=== PATIENT | male | born 1960 | race Caucasian/White ===

== ENCOUNTER → 2023-10-10 08:44 | Outpatient (BNVA) | payer OTHER, SELFPAY | PROVIDERS: Family Provider Family Medicine; PCP Family Medicine; Visit Provider Family Medicine | DX: G45.9 Transient cerebral ischemic attack, unspecified (principal); M10.9 Gout, unspecified; E11.9 Type 2 diabetes mellitus without complications; I10 Essential (primary) hypertension | CPT/HCPCS: 80053; 80061; 82607; 83036; 84443; 84550; 85025; 86140 ==

== ENCOUNTER 2023-10-25 13:01 | Outpatient (CLI) | payer OTHER, SELFPAY ==
--- NOTE | 2023-10-25 13:15 | USCV_ITS ---
Jared Dani Age: 62 Gender: M : 1960 Exam Date: 10/25/2023 13:58 Ordering Phys: Timoteo Farrar MD Technologist: DARLEEN [place] [facility] [place]: TIA BP: 137 / 82 HR: 82 Rhythm: Sinus Technical Quality: Adequate MEASUREMENTS (Male / Female) Normal Values 2D ECHO LVOT Diameter 2.0 cm LV Ejection Fraction MOD 2C 57.7 % LV Ejection Fraction 2C AL 57.2 % LA Diameter 2.9 cm LA Width 2.9 cm LA Height 5.8 cm RA Width 2.8 cm RA Height 4.6 cm Aorta at Sinotubular Diameter 2.6 cm M-MODE Aortic Annulus Diameter 3.0 cm LA Ao Ratio MM 1.0 MV E Point Septal Separation 0.4 cm DOPPLER AV Peak Velocity 163.0 cm/s LVOT Peak Velocity 129.0 cm/s AV Area Cont Eq vti 2.7 cm squared AV Area Cont Eq pk 2.5 cm squared MV Peak Velocity 84.0 cm/s MV Area PHT 2.8 cm squared Mitral E to A Ratio 1.0 MV E' Velocity 44.5 cm/s Mitral E to MV E' Ratio 9.3 Mitral E to LV E' Lateral Ratio 7.8 Mitral E to LV E' Septal Ratio 11.5 TR Peak Velocity 162.2 cm/s TR Peak Gradient 10.5 mmHg TR Mean Velocity 128.7 cm/s TR Mean Gradient 6.9 mmHg TR Velocity Time Integral 42.4 cm TV Peak E Velocity 52.0 cm/s Right Atrial Pressure 8.0 mmHg Pulmonary Artery Systolic Pressu 18.5 mmHg PV Peak Velocity 132.0 cm/s RV Acceleration Time 0.1 s RV Ejection Time 0.3 s RV AcT/ET 0.3 FINDINGS Left Ventricle Left ventricle is normal size. LV systolic function is normal with EF of 55 to 60%. No regional wall motion abnormalities are seen. Right Ventricle Normal in size and function Right Atrium Normal in size Left Atrium Normal in size Mitral Valve Structurally normal mitral valve. Mild mitral regurgitation Aortic Valve Structurally normal aortic valve. No significant stenosis or regurgitation seen. Tricuspid Valve Mild tricuspid regurgitation. Insufficient TR jet to calculate RVSP. Pulmonic Valve Not well-visualized. Pericardium Normal Aorta Normal in size IVC Appears to be normal CONCLUSIONS LV systolic function is normal with EF of 55 to 60%. Mild mitral regurgitation Mild tricuspid regurgitation No comparison studies are available Oscar Santana MD (Electronically Signed) Final Date: 10 November 2023 15:18 S
== END 2023-10-25 13:02 | disposition home or self-care (01) ==
LOC: RAD 13:02
PROVIDERS: Family Provider Family Medicine; PCP Family Medicine; Visit Provider Family Medicine
DX: I08.1 Rheumatic disorders of both mitral and tricuspid valves (principal); G45.9 Transient cerebral ischemic attack, unspecified; R07.9 Chest pain, unspecified; M10.9 Gout, unspecified; E11.9 Type 2 diabetes mellitus without complications; I10 Essential (primary) hypertension
CPT/HCPCS: 93306

== ENCOUNTER 2023-10-25 14:19 | Outpatient (CLI) | payer OTHER, SELFPAY ==
--- NOTE | 2023-10-25 14:30 | USCV_ITS ---
Dani Coleman Age: 62 Gender: M : 1960 Exam Date: 10/25/2023 14:26 Ordering Phys: Timoteo Farrar MD Technologist: DARLEEN [place] [facility] [place]: TIA Risk Factors: Previous Vascular Surgery: Right Brachial BP: / Left Brachial BP: / Right Left Velocity (cm/s) Spectral Plaque Velocity (cm/s) Spectral Plaque Syst/Diast Broadening Syst/Diast Broadening 71.00/ 13.10 Prox CCA 91.70 / 16.60 74.30/ 16.40 Mid CCA 87.20 / 14.50 68.40/ 18.40 Distal CCA 80.30 / 19.70 56.50/ 13.80 Prox ICA 63.20 / 12.00 50.80/ 19.70 Mid ICA 60.30 / 19.40 68.40/ 21.70 Distal ICA 61.50 / 19.70 92.40 ECA 88.00 0.92 ICA/CCA 0.69 Antegrade Vertebral Antegrade 32.00/ 9.10 cm/s 28.90/ 5.90 cm/s Tri Subclavian Tri 75.20 155.1 0 FINDINGS Comparison: none available. No significant elevation of systolic or diastolic velocities. Waveforms are normal. Mild atherosclerosis at the bifurcations. Antegrade vertebral arteries. CONCLUSIONS Bilateral ICA stenosis less than 50%. Mild carotid atherosclerosis. Dr. Stephani Leone DO (Electronically Signed) Final Date: 25 October 2023 15:33 S
== END 2023-10-25 14:20 | disposition home or self-care (01) ==
LOC: RAD 14:19
PROVIDERS: Family Provider Family Medicine; PCP Family Medicine; Visit Provider Family Medicine
DX: G45.9 Transient cerebral ischemic attack, unspecified (principal); I65.23 Occlusion and stenosis of bilateral carotid arteries; M10.9 Gout, unspecified; E11.9 Type 2 diabetes mellitus without complications; I10 Essential (primary) hypertension
CPT/HCPCS: 93880

== ENCOUNTER 2023-10-27 16:50 | Outpatient (CLI) | payer OTHER, SELFPAY ==
--- NOTE | 2023-10-27 17:00 | CTR_ITS ---
PROCEDURE INFORMATION: Exam: CT Head Without And With Contrast Exam date and time: 10/27/2023 5:02 PM Age: 62 years old Clinical indication: Altered mental status/memory loss; Confusion or disorientation; Additional info: TIA TECHNIQUE: Imaging protocol: Computed tomography of the head without and with contrast. Radiation optimization: All CT scans at this facility use at least one of these dose optimization techniques: automated exposure control; mA and/or kV adjustment per patient size (includes targeted exams where dose is matched to clinical indication); or iterative reconstruction. Contrast material: OMNI 350; Contrast volume: 100 ml; Contrast route: INTRAVENOUS (IV); COMPARISON: MR head orbits wo/w* [id number] 12/26/2016 8:20 AM RADIATION DOSE METRICS: Total DLP (mGy-cm): 2197.58 FINDINGS: Brain: No evidence of intra-axial or extra-axial hemorrhage. No evidence of abnormal enhancement. The vessels of the augqil-eq-Ozizcj are grossly patent. Dural venous sinuses are patent. No mass effect or midline shift. Frias-white differentiation is maintained. Basilar cisterns are patent. Cerebral ventricles: No hydrocephalus. Paranasal sinuses: Paranasal sinuses are well aerated. There is a 13 mm polypoid mass in the left sphenoid sinus along the anterior wall compatible with a sphenochoanal polyp. Mastoid air cells: The mastoids and middle ears are clear. Bones/joints: No evidence of acute fracture. Calvarium is intact. Soft tissues: No gross soft tissue abnormality. CT/CT head wo/w con [id number] IMPRESSION: 1. No acute intracranial abnormality. 2. 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 Follow-up outpatient ENT evaluation is recommended.
[2023-10-27] MEDS: iohexol 350 mg/mL 500 mL Btl (per mL) IV (17:15)
== END 2023-10-27 16:51 | disposition home or self-care (01) ==
LOC: RAD 16:50
PROVIDERS: Family Provider Family Medicine; PCP Family Medicine; Visit Provider Family Medicine
DX: G45.9 Transient cerebral ischemic attack, unspecified (principal); M10.9 Gout, unspecified; E11.9 Type 2 diabetes mellitus without complications; I10 Essential (primary) hypertension; R41.3 Other amnesia; J33.8 Other polyp of sinus
CPT/HCPCS: 70470; Q9967

== ENCOUNTER → 2024-02-13 16:04 | Outpatient (BNVA) | payer OTHER, SELFPAY | PROVIDERS: Family Provider Family Medicine; PCP Family Medicine; Visit Provider Family Medicine | DX: I10 Essential (primary) hypertension (principal); E11.9 Type 2 diabetes mellitus without complications; M10.9 Gout, unspecified; G45.9 Transient cerebral ischemic attack, unspecified | CPT/HCPCS: 80053; 80061; 83036; 85025; 85260 ==

== ENCOUNTER → 2024-05-17 08:23 | Outpatient (BNVA) | payer OTHER, SELFPAY | PROVIDERS: Family Provider Family Medicine; PCP Family Medicine; Visit Provider Family Medicine | DX: E78.5 Hyperlipidemia, unspecified (principal); I10 Essential (primary) hypertension; E11.9 Type 2 diabetes mellitus without complications | CPT/HCPCS: 80053; 80061; 83036 ==

== ENCOUNTER → 2024-05-20 13:14 | Outpatient (BNVA) | payer OTHER, SELFPAY | PROVIDERS: Family Provider Family Medicine; PCP Family Medicine; Visit Provider Family Medicine | DX: E11.9 Type 2 diabetes mellitus without complications (principal) | CPT/HCPCS: 82962 ==

== ENCOUNTER → 2024-08-26 13:57 | Outpatient (BNVA) | payer OTHER, SELFPAY | PROVIDERS: Family Provider Family Medicine; PCP Family Medicine; Visit Provider Family Medicine | DX: I10 Essential (primary) hypertension (principal); E78.5 Hyperlipidemia, unspecified; E11.9 Type 2 diabetes mellitus without complications | CPT/HCPCS: 80053; 80061; 83036 ==

== ENCOUNTER → 2024-11-26 10:19 | Outpatient (BNVA) | payer OTHER, SELFPAY | PROVIDERS: Family Provider Family Medicine; PCP Family Medicine; Visit Provider Family Medicine | DX: I10 Essential (primary) hypertension (principal); R73.03 Prediabetes | CPT/HCPCS: 80053; 80061; 83036 ==

== ENCOUNTER → 2024-12-06 08:28 | Outpatient (BNVA) | payer OTHER, SELFPAY | PROVIDERS: Family Provider Family Medicine; PCP Family Medicine; Visit Provider Family Medicine | DX: I10 Essential (primary) hypertension (principal) | CPT/HCPCS: 84550 ==

== ENCOUNTER → 2025-03-06 11:13 | Outpatient (BNVA) | payer OTHER, SELFPAY | PROVIDERS: Family Provider Family Medicine; PCP Family Medicine; Visit Provider Family Medicine | DX: N18.9 Chronic kidney disease, unspecified (principal); I10 Essential (primary) hypertension; R73.03 Prediabetes; E11.9 Type 2 diabetes mellitus without complications; M10.9 Gout, unspecified | CPT/HCPCS: 80053; 80061; 83036; 84550; 85025 ==

== ENCOUNTER → 2025-06-06 11:09 | Outpatient (BNVA) | payer OTHER, SELFPAY | PROVIDERS: Family Provider Family Medicine; PCP Family Medicine; Visit Provider Family Medicine | DX: E11.9 Type 2 diabetes mellitus without complications (principal); I10 Essential (primary) hypertension; M10.9 Gout, unspecified; E78.5 Hyperlipidemia, unspecified | CPT/HCPCS: 80053; 80061; 83036 ==

== ENCOUNTER 2025-06-15 19:10 | Inpatient (IN) | payer OTHER, SELFPAY ==
[2025-06-15] VITALS (7 sets, daily range): BP systolic 132–173; BP diastolic 87–108; PULSE 80–98; RESP 17–29; TEMP 36.6–36.7; O2SAT 93–95; BMI 32.0
--- NOTE | 2025-06-15 19:14 | ECG_ITS ---
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
--- NOTE | 2025-06-15 19:29 | CTR_ITS ---
PROCEDURE INFORMATION: Exam: CT Head Without Contrast Exam date and time: 06/15/2025 7:52 PM Age: 64 years old Clinical indication: Stroke-like symptoms; RT upper extremity weakness; Additional info: Sudden onset of right upper ext weakness and numbness. History of multiple TIA. TECHNIQUE: Imaging protocol: Computed tomography of the head without contrast. Radiation optimization: All CT scans at this facility use at least one of these dose optimization techniques: automated exposure control; mA and/or kV adjustment per patient size (includes targeted exams where dose is matched to clinical indication); or iterative reconstruction. Other technique: STROKE PROTOCOL was implemented. COMPARISON: CT head wo/w con [id number] 10/27/2023 5:02 PM RADIATION DOSE METRICS: Total DLP (mGy-cm): 1108.94 FINDINGS: Brain: No evidence of intra-axial or extra-axial hemorrhage. No mass effect or midline shift. Frias-white differentiation is maintained. Basilar cisterns are patent. Cerebral ventricles: No hydrocephalus. Paranasal sinuses: The visualized paranasal sinuses are well aerated. 12 mm nodular lesion in the left sphenoid sinus, possibly a proteinaceous cyst. Mastoid air cells: The visualized mastoids and middle ears are clear. Bones: Calvarium is intact. No evidence of acute fracture. Soft tissues: No gross soft tissue abnormality. CT/CT head thrombolytic [id number] IMPRESSION: 1. No acute intracranial abnormality. ASSESSMENT: ASPECTS ([place] Stroke Program Early CT Score) is 10.
--- NOTE | 2025-06-15 19:29 | XRR_ITS ---
PROCEDURE INFORMATION: Exam: XR Chest Exam date and time: 06/15/2025 7:29 PM Age: 64 years old Clinical indication: Pain; Right-sided; Additional info: R arm paresthesia TECHNIQUE: Imaging protocol: Radiologic exam of the chest. Views: 1 view. COMPARISON: No relevant prior studies available. FINDINGS: Lungs: No focal consolidation. Pleural spaces: No evidence of pneumothorax. Left basilar atelectasis. Small left-sided pleural effusion would be difficult to exclude. Heart/Mediastinum: Cardiomediastinal silhouette is within normal limits. Bones/joints: No evidence of acute osseous abnormality. XR/XR chest 1V portable [id number] IMPRESSION: 1. Left basilar atelectasis. Small left-sided pleural effusion would be difficult to exclude. CT may be helpful for further detail if clinically warranted.
[2025-06-15 20:02] LABS: Hematocrit 44.7 % (37-53); Hemoglobin 15.20 g/dL (11.27-16.99); Mean Corpuscular HGB Conc 34.0 g/dL (30-55); Mean Corpuscular Hemoglobin 28.7 pg (27-33); Mean Corpuscular Volume 84.5 fl (82-101); Nucleated Red Blood Cells % 0 %; Platelet Count 275 10^3/cmm (157-399); Red Blood Count 5.29 10^6/uL (3.85-5.65); White Blood Count 8.74 10^3/uL (3.29-11.43)
--- NOTE | 2025-06-15 20:05 | ECG_ITS ---
[facility] Test Date: 2025-06-15 Pat Name: Dani Coleman Department: Room: Gender: Male Set Up Person: : 1960 Requested By: Devang David Order Number: [id number] Aron MD: YUSUF RUSSO Measurements Intervals [place] Rate: 93 P: 38 DE: 153 QRS: 18 QRSD: 85 T: -28 QT: 360 QTc: 449 Interpretive Statements SINUS RHYTHM NONSPECIFIC T-WAVE ABNORMALITY No previous ECG available for comparison Electronically Signed On 06-16-2025 10:48:41 CDT by YUSUF RUSSO [id number]
[2025-06-15 20:06] LABS: Alanine Aminotransferase 43 U/L (0-41); Albumin Level 4.1 g/dL (3.5-5.2); Alkaline Phosphatase 79 U/L (40-130); Anion Gap 19.6 (5-19); Aspartate Amino Transferase 29 U/L (0-40); Blood Urea Nitrogen 21 mg/dL (8-23); Calcium 9.5 mg/dL (8.5-10.5); Carbon Dioxide 23 mmol/L (22-29); Chloride 97 mmol/L (98-107); Creatinine Clr Calc Pharmacy 107.5861; Globulin 4.0 g/dL (1.3-4.6); Glucose 212 mg/dL (65-115); Osmolality Calculated 291 mOsm/kg (285-295); Potassium 3.6 mmol/L (3.5-5.1); Sodium 136 mmol/L (136-145); Total Protein 8.1 g/dL (6.6-8.7)
[2025-06-15 20:13] LABS: INR 0.98 (0.8-1.2); Prothrombin Time 13.70 SECONDS (12.1-14.9)
[2025-06-15 20:14] LABS: Partial Thromboplastin Time 27.5 SECONDS (23.9-36.7)
[2025-06-15 20:19] LABS: Troponin(5th) Baseline 1159 ng/L (0-15)
--- NOTE | 2025-06-15 20:37 | ED_ITS ---
HPI - Neuro Symptoms/Deficit 2 General: Chief Complaint: Neuro Symptoms/Deficit Stated Complaint: RIGHT ARM NUMBNESS Time Seen by Provider: 06/15/25 19:13 History of Present Illness: Patient is a 64-year-old male who presents after experiencing sudden onset of numbness in his arm approximately 15 minutes prior to arrival. The numbness began in his hand and progressed up his arm. He also reports associated visual changes, describing that part of his vision was blurry and that he could not see portions of people's faces (specifically the right side). The patient additionally reports experiencing difficulty with word-finding during the episode. He self-administered sublingual nitroglycerin, which was recently prescribed to him on (3 days ago) following an evaluation for chest pain and tightness. The patient states that the numbness has improved but is still present. He denies weakness in the affected arm. Of note, the patient reports that on he had similar symptoms affecting his right side. He was evaluated by his primary care physician at that time and had an EKG which the physician reported as 'not normal' but not showing evidence of a myocardial infarction. A modified stress test has been scheduled for Monday. The patient also mentions feeling unusually warm despite cool weather recently. He has a history of elevated blood pressure and reports stopping his amlodipine approximately 1.5 weeks ago due to episodes of hypotension, though he continues to take lisinopril. Related Data Previous Rx's ?Medication ?Instructions ?Recorded aspirin 81 mg tablet,delayed 243 mg (3 x 81 mg) PO BID #30 tabs 10/10/23 release (Adult Aspirin Regimen) blood-glucose meter #1 ea 10/19/23 lisinopril 20 mg tablet 20 mg PO DAILY #90 tabs 06/09 11/01 hydrochlorothiazide 25 mg tablet See Rx Instructions . Route 10/14/24 .COMPLEX #90 tabs metformin 1,000 mg tablet See Rx Instructions .Route 0 10/14/24 .COMPLEX #60 tabs blood sugar diagnostic (OneTouch #200 strips 10/24/24 Ultra Test strips) permethrin 5 % topical cream 1 applic topical .Q7Days 2 doses 12/02/24 (Elimite) #60 grams allopurinol 100 mg tablet 100 mg PO DAILY #30 tabs fluticasone propionate 50 See Rx Instructions .Route 0 01/20/25 mcg/actuation nasal .COMPLEX #16 grams spray,suspension glimepiride 4 mg tablet See Rx Instructions .Route 0 01/20/25 .COMPLEX #60 tabs montelukast 10 mg tablet See Rx Instructions .Route 0 01/20/25 .COMPLEX #30 tabs pioglitazone 15 mg tablet (Actos) 15 mg PO DAILY #30 t abs 03/10/25 nitroglycerin 0.4 mg sublingual 0.4 mg sublingual Q5M PRN chest 06/12/25 tablet pain #20 tabs Allergies Allergy/AdvReac Type Severity Reaction Status Date / Time tetracycline AdvReac Intermediate GI Verified 01/25/24 13:28 PFSH ED 2 PFSH: Medical History Hyperlipidemia Hypertension Diabetes mellitus Gout Social History Smoking and tobacco/nicotine status: never used tobacco/nicotine NIH stroke score 2 NIHSS: Level Of Consciousness - 1a: 0 Level Of Consciousness Questions - 1b: Both Correct Level Of Consciousness Commands - 1c: Both Correct Best Gaze - 2: Normal Visual [place] - 3: No Visual Loss Facial Palsy - 4: N ormal Motor Arm Right - 5: No Drift Motor Arm Left - 5: No Drift Motor Leg Right - 6: No Drift Motor Leg Left - 6: No Drift Limb Ataxia - 7: A bsent Sensory - 8: Mild To Moderate Loss Best Language - 9: No Aphasia Dysarthia - 10: Normal Extinction And Inattention - 11: 0 Score: Total Score: 1 Physical Exam 2 Const: COMMON NORMALS: no acute distress GENERAL APPEARANCE: cooperative; not ill appearing and not frail appearing HENMT: COMMON NORMALS: normocephalic, atraumatic and Normal external nose present HEAD & SCALP: normocephalic and atraumatic FACE & SINUS: normal facial exam and face symmetric NOSE: Normal external nose present Eye: COMMON NORMALS: Equal, round and reactive pupils present and EOMs intact bilaterally PUPIL: Yes Equal, round and reactive pupils present Neck/C-Spine: GENERAL: Yes trachea midline Chest: CHEST: Yes Symmetrical chest wall rise Resp: COMMON NORMALS: normal respiratory effort, No retractions, No use of accessory muscles and clear to auscultation bilaterally AUSCULTATION: clear to auscultation bilaterally Cardio: COMMON NORMALS: regular rate and regular rhythm RATE: regular rate RHYTHM: regular rhythm GI: COMMON NORMALS: Normal to inspection, nondistended, normoactive bowel sounds present Extremity: COMMON NORMALS: no pedal edema Neuro: MINISTERIO COMA SCALE: document GCS findings Ministerio coma scale eye opening: Spontaneous [place] coma scale verbal response: Orientated [place] coma scale motor response: Obey commands [place] coma scale total score: 15 S ENSORY EXAM: Yes extremities (intact) Psych: COMMON NORMALS: speech normal SPEECH: Yes normal speech Skin: COMMON NORMALS: no rashes or lesions noted GENERAL SKIN EXAM: no rashes or lesions noted Course 2 Vital Signs: Vital signs: Vital Signs Temperature 97.9 F 06/15/25 23:25 Pulse Rate 83 06/16/25 00:00 Respiratory Rate 14 06/16/25 00:00 Blood Pressure 138/91 06/16/25 00:00 Pulse Oximetry 94 06/15/25 23:45 Oxygen Delivery Me thod Room Air 06/15/25 23:11 MDM - Neuro Symptoms/Deficit Medical Decision Making 64-year-old male patient with right arm paresthesias. He has had chest tightness this week. He does not have chest tightness currently. The paresthesia has improved significantly, even some since he was first seen by me on arrival. His other neurological symptoms are gone. His EKG initially showed ST wave changes in the inferior leads, with minimal, nondiagnostic elevation. He continues to not have any chest tightness or discomfort. However with EKG changes, troponin elevation, and previous chest tightness, cardiology was consulted after troponin came back. Decision was made to take the patient for angiogram diagnostically this evening given his high troponin and EKG changes. He is stable otherwise. His stroke scale was 1 for right upper extremity paresthesia. He does not meet stroke treatment criteria with this score. His chest x-ray shows a left basilar atelectasis. His head CT is nonacute. CBC and BMP are not remarkable. His sugar is 212. Cath team is underway. The patient is given 600 mg Plavix, 4000 units heparin, 324 mg of aspirin. Nitroglycerin drip is hung in the room but not started. Lab Data 06/16/25 01:30 06/16/25 01:30 Radiology Impressions Chest X-Ray 06/15/25 19:29 IMPRESSION: 1. Left basilar atelectasis. Small left-sided pleural effusion would be difficult to exclude. CT may be helpful for further detail if clinically warranted. Head CT 06/15/25 19:29 IMPRESSION: 1. No acute intracranial abnormality. ASSESSMENT: ASPECTS ([place] Stroke Program Early CT Score) is 10. ADDENDUM: 06/15/252027 The findings were verbally communicated by telephone with Dr. TRINIDAD at 8:27 PM CDT on 06/15/2025. Laboratory Results WBC 8.74 10^3/uL (3.29-11.43) 06/15/25 19:10 RBC 5.29 10^6/uL (3.85-5.65) 06/15/25 19:10 Hgb 15.20 g/dL (11.27-16.99) 06/15/25 19:10 Hct 44.7 % (37-53) 06/15/25 19:10 MCV 84.5 fl (82-101) 06/15/25 19:10 MCH 28.7 pg (27-33) 06/15/25 19:10 MCHC 34.0 g/dL (30-55) 06/15/25 19:10 RDW 14.2 % (12.1-15.1) 06/15/25 19:10 Plt Count 275 10^3/cmm (157-399) 06/15/25 19:10 MPV 10.7 fL (7.4-10.4) H 06/15/25 19:10 Neut % (Auto) 61.9 % 06/15/25 19:10 Lymph % (Auto) 25.1 % 06/15/25 19:10 Cannon % (Auto) 10.1 % 06/15/25 19:10 Eos % (Auto) 2.1 % 06/15/25 19:10 Baso % (Auto) 0.5 % 06/15/25 19:10 Neut # (Auto) 5.42 10^3/uL (1.8-7.7) 06/15/25 19:10 Lymph # (Auto) 2.2 10^3/uL (0.8-4.8) 06/15/25 19:10 Cannon # (Auto) 0.9 10^3/uL (0.2-0.9) 06/15/25 19:10 Eos # (Auto) 0.2 10^3/uL (0.0-0.8) 06/15/25 19:10 Baso # (Auto) 0.0 10^3/uL (0.0-0.1) 06/15/25 19:10 Nucleated RBC % (auto) 0 % 06/15/25 19:10 Nucleated RBCs # 0.0 /100WBC 06/15/25 19:10 PT 13.70 SECONDS (12.1-14.9) 06/15/25 19:10 INR 0.98 (0.8-1.2) 06/15/25 19:10 APTT 27.5 SECONDS (23.9-36.7) 06/15/25 19:10 Sodium 136 mmol/L (136-145) 06/15/25 19:10 Potassium 3.6 mmol/L (3.5-5.1) 06/15/25 19:10 Chloride 97 mmol/L (98-107) L 06/15/25 19:10 Carbon Dioxide 23 mmol/L (22-29) 06/15/25 19:10 Anion Gap 19.6 (5-19) H 06/15/25 19:10 BUN 21 mg/dL (8-23) 06/15/25 19:10 Creatinine 0.9 mg/dL (0.7-1.2) 06/15/25 19:10 GFR Calculation 85.5 mL/min (90-130) L 06/15/25 19:10 Glucose 212 mg/dL (65-115) H 06/15/25 19:10 Calculated Osmolality 291 mOsm/kg (285-295) 06/15/25 19:10 Calcium 9.5 mg/dL (8.5-10.5) 06/15/25 19:10 Total Bilirubin 0.3 mg/dL (0.15-1.2) 06/15/25 19:10 AST 29 U/L (0-40) 06/15/25 19:10 ALT 43 U/L (0-41) H 06/15/25 19:10 Alkaline Phosphatase 79 U/L (40-130) 06/15/25 19:10 Troponin T Baseline 1159 ng/L (0-15) H* 06/15/25 19:10 Troponin T 120 Minute 610.9 ng/L (0-15) H 06/15/25 22:38 Delta Troponin T -548.1 ABS# (0-10) L 06/15/25 22:38 Total Protein 8.1 g/dL (6.6-8.7) 06/15/25 19:10 Albumin 4.1 g/dL (3.5-5.2) 06/15/25 19:10 Globulin 4.0 g/dL (1.3-4.6) 06/15/25 19:10 All radiology interpretation(s) finalized by discharge Critical Care Time 2 Critical Care Time: Critical Care Time: Yes Total Critical Care Time: 35 Attestation: This case had a high probability of a clinically significant, sudden, or life threatening deterioration of this patient's condition which required my full and direct attention, intervention and personal management. Time is independent of any procedures performed. 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
[2025-06-15] MEDS: heparin 5,000 unit/mL INJ 1 mL 4000 UNIT IVP (20:58)
[2025-06-15] MEDS: ondansetron 2 mg/ML SDV 2 mL 4 MG IVP (20:58)
--- NOTE | 2025-06-15 21:16 | PM.HP ---
Providers/Chief Complaint Admitting Physician: Oscar Santana MD/ Cardiology Primary Care Provider: Timoteo Farrar MD Chief Complaint: RIGHT ARM NUMBNESS/ Neck/jaw pain History of Present Illness aDni Coleman is a 64 year old male with past medical history of hypertension, TIA, diabetes who presented to hospital with right arm tingling and numbness. This was associated with difficulty with word finding. Speech difficulty has resolved. Tingling is improved and only has minimal symptoms. ER evaluated patient and per their evaluation does not need tPA. CT head does not show any acute findings. He had recent episodes of chest discomfort. Says has minor chest tightness today as well. Also has been noticing neck pain since . Today's episode of neurological symptoms was associated with diaphoresis. EKG showing borderline ST elevation in inferior leads not meeting STEMI criteria. Initial troponin is over 1100. 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 high risk NSTEMI Medications/Allergies Home Medications ?Medication ?Instructions ?Recorded ?Confirmed ?Last Taken ?Type aspirin 81 mg tablet,delayed 243 mg (3 x 81 mg) PO BID #30 tabs 10/10/23 06/12/25 Unknown Rx release (Adult Aspirin Regimen) blood-glucose meter #1 ea 10/19/23 06/12/25 Unknown Rx lisinopril 20 mg tablet 20 mg PO DAILY #90 tabs 06/19/24 06/12/25 Unknown Rx hydrochlorothiazide 25 mg tablet See Rx Instructions .Route 10/14/24 06/12/25 Unknown Rx .COMPLEX #90 tabs metformin 1,000 mg tablet See Rx Instructions .Route 10/14/24 06/12/25 Unknown Rx .COMPLEX #60 tabs blood sugar diagnostic (OneTouch #200 strips 10/24/24 06/12/25 Unknown Rx Ultra Test strips) permethrin 5 % topical cream 1 applic topical .Q7Days 2 doses 12/02/24 06/12/25 Unknown Rx (Elimite) #60 grams allopurinol 100 mg tablet 100 mg PO DAILY #30 tabs 01/20/25 06/12/25 Unknown Rx fluticasone propionate 50 See Rx Instructions .Route 01/20/25 06/12/25 Unknown Rx mcg/actuation nasal .COMPLEX #16 grams spray,suspension glimepiride 4 mg tablet See Rx Instructions .Route 01/20/25 06/12/25 Unknown Rx .COMPLEX #60 tabs montelukast 10 mg tablet See Rx Instructions .Route 01/20/25 06/12/25 Unknown Rx .COMPLEX #30 tabs pioglitazone 15 mg tablet (Actos) 15 mg PO DAILY #30 tabs 03/10/25 06/12/25 Unknown Rx nitroglycerin 0.4 mg sublingual 0.4 mg sublingual Q5M PRN chest 06/12/25 06/12/25 Unknown Rx tablet pain #20 tabs Allergies Allergy/AdvReac Type Severity Reaction Status Date / Time tetracycline AdvReac Intermediate GI Verified 01/25/24 13:28 PFSH Acute PFSH: Medical History Hyperlipidemia Hypertension Diabetes mellitus Gout Social History Smoking and tobacco/nicotine status: never used tobacco/nicotine Vitals/I&O/Wt Last Vital Signs Temp 98.0 F 06/15/25 19:11 Pulse 93 06/15/25 20:05 Resp 21 H 06/15/25 20:05 BP 148/87 06/15/25 20:05 Pulse Ox 95 06/15/25 20:05 O2 Del Method Room Air 06/15/25 20:05 06/15/25 06/15/25 06/15/25 06:59 14:59 22:59 Intake Total 500 / 500 Balance 500 / 500 Weight last 48 hrs Weight 236 lb Physical Exam Narrative: GENERAL: Patient is alert, awake and oriented x3. [] NECK: No jugular vein distension. [] HEENT: No cyanosis. No icterus. No pallor. [] HEART: Regular S1 and S2. No murmur, rub or gallop. [] LUNGS: Clear to auscultate bilaterally. [] CENTRAL NERVOUS SYSTEM: Right arm tingling EXTREMITIES: Lower extremities with no edema bilaterally. Data 06/15/25 19:10 06/15/25 19:10 A&P Assessment and plan 1. Non-ST elevated myocardial infarction (non-STEMI): 2. Hyperlipidemia: 3. Hypertension: 4. Diabetes mellitus: 5. TIA (transient ischemic attack): 6. Arm paresthesia, right: Plan: Given patient's recent chest pain, ongoing the neck discomfort and very high troponins along with borderline ST elevations in inferior leads, we will proceed with coronary angiogram with possible PCI. I had a detailed discussion with the ER team regarding any need for TIA/ stroke. Head bleed ruled out with CT scan. Does not meet criteria for tPA. Patient was given aspirin, plavix and heparin in the ER. We will consult medicine team for management and further workup of neurological symptoMS PDMP PDMP Reviewed: Not Reviewed Attestations Medical Necessity Statement*: Care expected to cross 2 midnights. Patient presented with high risk NSTEMI and TIA. Coding Level of Care Code Acute Code for [facility] Fwd Diagnoses Non-ST elevated myocardial infarction (non-STEMI) I21.4 Hyperlipidemia E78.5 Hypertension I10 Diabetes mellitus E11.9 TIA (transient ischemic attack) G45.9 Arm paresthesia, right R20.2
--- NOTE | 2025-06-15 21:30 | ECG_ITS ---
[facility] Test Date: 2025-06-15 Pat Name: Dani Coleman Department: Room: ICU05 Gender: Male Tele Marketing Executive: : 1960 Requested By: Devang David Order Number: [id number] Aron MD: YUSUF RUSSO Measurements Intervals [place] Rate: 80 P: 45 AK: 151 QRS: 48 QRSD: 82 T: 85 QT: 367 QTc: 425 Interpretive Statements SINUS RHYTHM MARKED ST ELEVATION, CONSIDER INFERIOR INJURY [MARKED ST ELEVATION W/O NORMALLY INFLECTED T-WAVE IN II/aVF] MARKED ST ELEVATION, CONSIDER ANTEROLATERAL INJURY [MARKED ST ELEVATION W/O NORMALLY INFLECTED T-WAVE IN V3-V6] ACUTE [place] Compared to ECG 06/15/2025 20:05:24 ST (T wave) deviation now present Myocardial infarct finding now present T-wave abnormality no longer present Electronically Signed On 06-16-2025 10:54:13 CDT by YUSUF RUSSO [id number]
--- NOTE | 2025-06-15 23:07 | PM.PROC ---
Procedure Note: Date of procedure: 06/15/25 Pre-procedure diagnosis: NSTEMI Post-procedure diagnosis: other Procedure: Left main artery is patent. Left circumflex artery is a proximal severe stenosis with thrombus. Mid vessel has critical stenosis. Has severe diffuse disease. LAD has severe diffuse disease distally with total occlusion of apical LAD. RCA has significant 70% proximal stenosis. Has severe diffuse disease in the distal vessel. Status post PCI of proximal and mid circumflex artery with 2 stents. Continue aspirin and plavix for atleast 1 year High intensity statin therapy We will consult medicine team for management of medical issues Performing Provider: Oscar Santana Estimated blood loss (mL): 10 Complications: None Condition: stable Disposition: ICU Coding Level of Care Code Acute Code for [facility] Fwd
[2025-06-15 23:13] LABS: Troponin 5 2HR Delta -548.1 ABS# (0-10)
[2025-06-15 23:15] LABS: Troponin 5 2HR 610.9 ng/L (0-15)
--- NOTE | 2025-06-15 23:33 | PC.NURSE ---
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 No complaints of chest pain, jaw pain or neck pain. Patient just endorses some heart burn and acid reflux and belching. Groin site has angioseal and is clean, dry and no hematoma. Right wrist has tr band in place and is clean, dry and no hematoma. radiation monitor has st elevation, Dr. Santana is aware.
[2025-06-15 23:57] LABS: Glucose Urine UA 2+ (Normal); Nitrate Urine Negative (Negative)
[2025-06-16] VITALS (82 sets, daily range): BP systolic 100–160; BP diastolic 63–100; PULSE 77–104; RESP 0–26; TEMP 36.5–37.3; O2SAT 90–97
[2025-06-16 00:02] LABS: Add Urine Microscopic? YES
[2025-06-16 00:04] LABS: PCP Screen Urine Negative (Negative)
--- NOTE | 2025-06-16 00:15 | PM.CONSULT ---
Providers/Reason For Consult Consulting Physician/Specialty*: Freya Clay MD/ Hospitalist Reason for Consult*: medical comorbidity management Requesting Physician: Oscar Santana M.D Attending Physician: Oscar Santana M.D Primary Care Provider: Timoteo Farrar MD History of Present Illness History of Present Illness Dani Coleman is a 64 year old male with a past medical history of hypertension, TIA, diabetes mellitus who presented to the emergency room today complaining of right arm tingling and numbness. This was apparently also associated with some word finding difficulty which has since resolved. Reportedly also had visual disturbances wherein he could only partially see people's face. upon arrival in the emergency room his NIH stroke scale was noted to be only 1. Stroke was considered unlikely. His neurological symptoms are nearly resolved at this time. CT head did not show any acute stroke. Patient had an EKG as part of his evaluation which showed borderline ST elevation in the inferior leads not meeting STEMI criteria. His initial troponin was found to be at 1100. Cardiac Concrete Stone Finishing Supervisor was activated in view of high risk NSTEMI and patient underwent coronary angiogram. He is now status postplacement of 2 stents Into the proximal and mid circumflex. Left main was found to be patent. Left circumflex has proximal severe stenosis with thrombus. LAD was noted to have severe diffuse disease with total occlusion of the apical LAD, RCA significant 70% proximal stenosis. He is now on dual antiplatelet therapy with aspirin and Plavix.Of note patient has recently visited with his primary care physician on 06/12/2025 and had complained of atypical symptoms such as increased abdominal bloating, followed by chest tightness and radiation into the right shoulder. He had additionally reported shortness of breath with less than usual activity. He had been recommended to undergo a stress test due to concern for angina. Review of Systems General: Reports: 10 or more systems reviewed and unremarkable except in HPI and below Const: Denies: fever(s), chills or body aches Eyes: Denies: change in vision, blurry vision or photophobia ENMT: Reports: hoarseness; Denies: throat pain, enlarged tonsils, odynophagia or nasal congestion Card: Denies: chest pain, palpitations, irregular heart rhythm, edema, swelling of feet/ankles, lightheadedness, pre-syncope, dyspnea on exertion or orthopnea Resp: Denies: dyspnea, productive cough, non-productive cough, wheezing, stridor, pain on inspiration, change in phlegm color, hemoptysis or chest congestion GI: Denies: abdominal pain, nausea, vomiting, hematemesis, coffee ground emesis, dysphagia, heartburn, diarrhea, constipation, GI cramping, change in stool character, hematochezia or melena : Denies: flank pain, dysuria, urinary frequency, urinary urgency, urinary hesitancy or hematuria Musc: Denies: neck pain, back pain, extremity pain, joint swelling, joint warmth or deformity Neuro: Denies: headache(s), numbness in extremities, weakness in extremities, sensory changes, difficulty walking, frequent falls, dizziness, vertigo, behavioral changes, Slurred speech present or seizure-like activity Psych: Denies: anxiety, depression, suicidal ideation or homicidal ideation Endo: Denies: polyuria, polydipsia, tired all the time, cold intolerance or hot flashes Iker/Lymph: Denies: easy bruising or easy bleeding Medications/Allergies Home Medications ?Medication ?Instructions ?Recorded ?Confirmed ?Last Taken ?Type aspirin 81 mg tablet,delayed 243 mg (3 x 81 mg) PO BID #30 tabs 10/10/23 06/12/25 Unknown Rx release (Adult Aspirin Regimen) blood-glucose meter #1 ea 10/19/23 06/12/25 Unknown Rx lisinopril 20 mg tablet 20 mg PO DAILY #90 tabs 06/19/24 06/12/25 Unknown Rx hydrochlorothiazide 25 mg tablet See Rx Instructions .Route 10/14/24 06/12/25 Unknown Rx .COMPLEX #90 tabs metformin 1,000 mg tablet See Rx Instructions .Route 10/14/24 06/12/25 Unknown Rx .COMPLEX #60 tabs blood sugar diagnostic (OneTouch #200 strips 10/24/24 06/12/25 Unknown Rx Ultra Test strips) permethrin 5 % topical cream 1 applic topical .Q7Days 2 doses 12/02/24 06/12/25 Unknown Rx (Elimite) #60 grams allopurinol 100 mg tablet 100 mg PO DAILY #30 tabs 01/20/25 06/12/25 Unknown Rx fluticasone propionate 50 See Rx Instructions .Route 01/20/25 06/12/25 Unknown Rx mcg/actuation nasal .COMPLEX #16 grams spray,suspension glimepiride 4 mg tablet See Rx Instructions .Route 01/20/25 06/12/25 Unknown Rx .COMPLEX #60 tabs montelukast 10 mg tablet See Rx Instructions .Route 01/20/25 06/12/25 Unknown Rx .COMPLEX #30 tabs pioglitazone 15 mg tablet (Actos) 15 mg PO DAILY #30 tabs 03/10/25 06/12/25 Unknown Rx nitroglycerin 0.4 mg sublingual 0.4 mg sublingual Q5M PRN chest 06/12/25 06/12/25 Unknown Rx tablet pain #20 tabs Allergies Allergy/AdvReac Type Severity Reaction Status Date / Time tetracycline AdvReac Intermediate GI Verified 01/25/24 13:28 Current Medications Generic Name Dose Route Start Last Admin Trade Name Freq PRN Reason Stop Dose Admin Sodium Chloride 1,000 mls @ 100 mls/hr 06/15/25 23:15 06/15/25 23:45 Sodium Chloride 0.9% IV 100 mls/hr .Q10H MERCEDES Administration PFSH Acute PFSH: Medical History Hyperlipidemia Hypertension Diabetes mellitus Gout Social History Smoking and tobacco/nicotine status: never used tobacco/nicotine Vitals/I&O/Wt Last Vital Signs Temp 97.9 F 06/15/25 23:25 Pulse 83 06/16/25 00:00 Resp 14 06/16/25 00:00 BP 138/91 06/16/25 00:00 Pulse Ox 94 06/15/25 23:45 O2 Del Method Room Air 06/15/25 23:11 06/15/25 06/15/25 06/16/25 14:59 22:59 06:59 Intake Total 500 / 500 Output Total 200 / 200 Balance 500 / 500 -200 / 300 Weight last 48 hrs Weight 110.767 kg Weight 107.048 kg Physical Exam Narrative: General: No acute distress, AO x3 HEENT: PERRLA, pupils bilaterally equal and reactive, pallors not present Chest: Normal vesicular breath sounds, no added sounds, equal good air entry bilaterally CVS: S1-S2 regular, no murmurs, no tachycardia, no gallops, no rubs Abdomen: Soft, nontender, no organomegaly, bowel sounds present Neuro: No focal deficits, no facial deformity, AO x3, power 5/5 in all limbs Data 06/16/25 01:30 06/16/25 01:30 A&P Assessment and plan 1. Non-ST elevated myocardial infarction (non-STEMI): Patient presenting today with atypical chest discomfort, found to have NSTEMI upon evaluation. Status post coronary angiogram with placement of 2 stents into the LCx. Currently on aspirin and Plavix. Started on atorvastatin 80 mg p.o. daily. 2. Diabetes mellitus: Diabetes mellitus. Last HbA1c on 06/06/2025 at 8.3. Over the past year this has trended down from 11.8--> 7.4--> 8.3. Insulin sliding scale while patient is in the hospital. Review of chart shows patient currently takes glimepiride, metformin, pioglitazone. Consider adding Jardiance at discharge. 3. Hyperlipidemia: Recently checked lipid panel on 06/06/2025 with triglycerides of 325, cholesterol 223, LDL 117, HDL 41. He has been started on atorvastatin today following the NSTEMI. 4. TIA (transient ischemic attack): Patient's neurological symptoms are vague and it is unclear if these may have been related to a TIA. He does have several risk factors which puts him at risk of TIA/stroke. NIH stroke scale of 1 for right upper extremity numbness upon ER arrival Currently no focal neurological deficits. CT head without evidence of acute stroke. Review of records shows patient had a carotid Doppler in October 2023 which showed less than 50% bilateral ICA stenosis. There was mild carotid arthrosclerosis at that time. Echocardiogram at that time had also shown LV systolic function with a EF of 55 to 60%. Mild MR and mild TR. Will repeat studies today to assess for any interval change. Closely monitor on telemetry for any underlying arrhythmias. PDMP PDMP Reviewed: Not Reviewed Coding Level of Care Code Acute Code for Chg Fwd High MDM includes number and complexity of problems actively addressed during encounter, amount and/or complexity of data reviewed/ordered and described risk of complication, morbidity or mortality of management as documented Diagnoses Non-ST elevated myocardial infarction (non-STEMI) I21.4 Diabetes mellitus E11.9 Hyperlipidemia E78.5 TIA (transient ischemic attack) G45.9
[2025-06-16 00:49] LABS: Specific Gravity, Urine 1.065 (1.005-1.030)
--- NOTE | 2025-06-16 01:30 | ECG_ITS ---
[employer] Test Date: 2025-06-16 Pat Name: Dani Coleman Department: Room: ICU05 Gender: Male Credentialing Manager: : 1960 Requested By: Devang David Order Number: [id number] Reading MD: YUSUF RUSSO Measurements Intervals [place] Rate: 79 P: 52 WA: 158 QRS: 38 QRSD: 85 T: 79 QT: 361 QTc: 415 Interpretive Statements SINUS RHYTHM ST ELEVATION, CONSIDER INFERIOR INJURY [MARKED ST ELEVATION W/O NORMALLY INFLECTED T-WAVE IN II/aVF] ACUTE MO Compared to ECG 06/15/2025 23:28:13 No significant changes Electronically Signed On 06-16-2025 10:54:06 CDT by YUSUF RUSSO [email or web address]
[2025-06-16 01:39] LABS: Hematocrit 41.2 % (37-53); Hemoglobin 14.00 g/dL (11.27-16.99); Mean Corpuscular HGB Conc 34.0 g/dL (30-55); Mean Corpuscular Hemoglobin 29.0 pg (27-33); Mean Corpuscular Volume 85.5 fl (82-101); Nucleated Red Blood Cells % 0 %; Platelet Count 224 10^3/cmm (157-399); Red Blood Count 4.82 10^6/uL (3.85-5.65); White Blood Count 8.07 10^3/uL (3.29-11.43)
--- NOTE | 2025-06-16 01:41 | PC.NURSE ---
TR band Removal: TR band removed at 0143, no bleeding/oozing or hematoma present.
[2025-06-16 02:06] LABS: Troponin 5 6HR Delta -514.1 ng/L (0-12)
[2025-06-16 02:07] LABS: Troponin 5 6HR 644.9 ng/L (0-15)
[2025-06-16 02:14] LABS: Anion Gap 13.9 (5-19); Blood Urea Nitrogen 19 mg/dL (8-23); Calcium 9.0 mg/dL (8.5-10.5); Carbon Dioxide 26 mmol/L (22-29); Chloride 95 mmol/L (98-107); Creatinine Clr Calc Pharmacy 123.0488; Glucose 273 mg/dL (65-115); Osmolality Calculated 284 mOsm/kg (285-295); Potassium 3.9 mmol/L (3.5-5.1); Sodium 131 mmol/L (136-145)
--- NOTE | 2025-06-16 04:38 | USCV_ITS ---
Dani Coleman Age: 64 Gender: M : 1960 Exam Date: 06/16/2025 10:01 Ordering Phys: Freya Clay MD Technologist: Exam Location: [facility] [place] Indication: tia cva Risk Factors: Previous Vascular Surgery: Right Brachial BP: / Left Brachial BP: / Right Left Velocity (cm/s) Spectral Plaque Velocity (cm/s) Spectral Plaque Syst/Diast Broadening Syst/Diast Broadening 67.20/ 15.40 Prox CCA 75.20 / 17.10 58.20/ 12.80 Mid CCA 64.40 / 16.00 63.40/ 16.70 Hetro Distal CCA 47.20 / 12.80 Hetro / Prox ICA 54.20 / 22.30 51.70/ 19.70 Mid ICA 59.50 / 20.90 74.20/ 28.30 Distal ICA 68.70 / 25.10 102.20 ECA 74.10 1.20 ICA/CCA 1.50 Antegrade Vertebral Antegrade 40.10/ 12.90 cm/s 27.60/ 9.10 cm/s Bi Subclavian Tri 79.20 81.00 CONCLUSIONS Right ICA stenosis <50%. Moderate atheromatous plaque right carotid bulb/ICA. Left ICA stenosis <50%. Moderate atheromatous plaque left carotid bulb/ICA. Normal antegrade Doppler flow noted in the right vertebral artery. Normal antegrade Doppler flow noted in the left vertebral artery. Keshawn Coleman MD (Electronically Signed) Final Date: 16 June 2025 15:38 S
--- NOTE | 2025-06-16 09:06 | PC.NURSE ---
Addendum entered by Osiel Kothari RN 06/16/25 12:05: 1200: 254 Original Note: Blood Sugars 06/16/2025. Blood sugars via glucometer are not importin: 207
--- NOTE | 2025-06-16 10:30 | P.PN_ITS ---
Subjective 2 Subjective: He has done well overnight. No chest pressure since procedure. Right radial cath site looks good. Vitals/I&O/Wt Last Vital Signs Temp 97.7 F 06/16/25 08:30 Pulse 90 06/16/25 09:30 Resp 19 H 06/16/25 09:30 BP 135/78 06/16/25 09:30 Pulse Ox 95 06/16/25 09:30 O2 Del Method Room Air 06/16/25 08:30 06/15/25 06/16/25 06/16/25 22:59 06:59 14:59 Intake Total 500 / 500 1341.667 / 1341.667 Output Total 1900 / 1900 Balance 500 / -1400 -1900 / -1400 1341.667 / 1341.667 Weight last 48 hrs Weight 244 lb 3.2 oz Weight 244 lb 3.2 oz Weight 236 lb Physical Exam 2 Const: COMMON NORMALS: no acute distress and patient oriented x3 GENERAL APPEARANCE: cooperative ORIENTATION/CONSCIOUSNESS: Yes awake, Yes oriented to person, Yes oriented to place and Yes oriented to time Chest: COMMONS NORMALS: normal inspection of the chest and normal palpation of entire chest wall CHEST: Yes Symmetrical chest wall rise Resp: COMMON NORMALS: normal respiratory effort, No retractions, No use of accessory muscles and clear to auscultation bilaterally AUSCULTATION: clear to auscultation bilaterally Cardio: COMMON NORMALS: regular rate, regular rhythm, S1 normal heart sound present, S2 normal heart sound present, No gallops present (Cardio), No clicks present (Cardio), No murmurs present (Cardio) and No rub (Cardio) RATE: r egular rate RHYTHM: regular rhythm HEART SOUNDS: S1 normal heart sound present and S2 normal heart sound present PERIPHERAL PULSES: radial pulses present positive right 2+ and femoral pulses present positive right 2+ Neuro: COMMON NORMALS: patient oriented x3 and moves all extremities S ENSORIUM/ORIENTATION: Yes oriented to person, Yes oriented to place and Yes oriented to time Skin: WOUNDS: Yes surgical site (no hematoma palpable) Details: no odor Data 06/16/25 01:30 06/16/25 01:30 A&P Assessment and plan 1. Non-ST elevated myocardial infarction (non-STEMI): 2. Chest pain: 3. Hyperlipidemia: 4. Hypertension: 5. Diabetes mellitus: Plan: I discussed the function of aspirin and Plavix, expected duration of medication for at least 1 year, importance of taking the medication every day. Will observe him today, especially while he ambulates. Will anticipate staged intervention for the RCA/LAD in a few weeks. PDMP PDMP Reviewed: Not Reviewed Attestations 2 Medical Necessity Statement*: NSTEMI post PCI Coding Level of Care Code Acute Code for [facility] Diagnoses Non-ST elevated myocardial infarction (non-STEMI) I21.4 Chest pain R07.9 Hyperlipidemia E78.5 Hypertension I10 Diabetes mellitus E11.9
--- NOTE | 2025-06-16 10:42 | PM.PN ---
Subjective Subjective: 64-year-old male with 2 circumflex stents yesterday evening 1 in the proximal and 1 in the mid circumflex by Dr. Santana. Patient had tingling in his hands yesterday as well as some pressure in the right shoulder which has mostly resolved. He states his pain was not exactly pain but atypical and described it had mostly resolved by the time he had his stents due to taking nitroglycerin. Patient is accompanied by his Floresita to whom he has been 30 years. Patient's carotid Dopplers from October 2023 bilateral ICA stenosis less than 50% patient's initial troponin 1159 on admission and dropped to 644 x 6-hour Vitals/I&O/Wt Last Vital Signs Temp 97.7 F 06/16/25 08:30 Pulse 90 06/16/25 09:30 Resp 19 H 06/16/25 09:30 BP 135/78 06/16/25 09:30 Pulse Ox 95 06/16/25 09:30 O2 Del Method Room Air 06/16/25 08:30 06/15/25 06/16/25 06/16/25 22:59 06:59 14:59 Intake Total 500 / 500 1341.667 / 1341.667 Output Total 1900 / 1900 Balance 500 / 500 -1900 / -1400 1341.667 / 1341.667 Weight last 48 hrs Weight 110.767 kg Weight 110.767 kg Weight 107.048 kg Physical Exam Narrative: General well-developed well-nourished male in no acute cardiopulmonary stress Neuro pupils equally round and reactive face symmetric tongue protrusion no deviation handgrips equal biceps and triceps equal bilaterally except for slight right handed dominant strength versus left. No [id number] numbness in either extremity Data 06/16/25 01:30 06/16/25 01:30 A&P Assessment and plan 1. Non-ST elevated myocardial infarction (non-STEMI): Patient presenting today with atypical chest discomfort, found to have NSTEMI upon evaluation. Status post coronary angiogram with placement of 2 stents into the LCx. Currently on aspirin and Plavix. Started on atorvastatin 80 mg p.o. daily. Patient with LAD and RCA disease being considered for staged intervention by cardiology service. 2. Diabetes mellitus: Diabetes mellitus. Last HbA1c on 06/06/2025 at 8.3. Over the past year this has trended down from 11.8--> 7.4--> 8.3. Insulin sliding scale while patient is in the hospital. Review of chart shows patient currently takes glimepiride, metformin, pioglitazone. Consider adding Jardiance at discharge. BMI is 33 so GLP-1 agonist may also be a good option 3. Hyperlipidemia: Recently checked lipid panel on 06/06/2025 with triglycerides of 325, cholesterol 223, LDL 117, HDL 41. He has been started on atorvastatin 80 mg daily following the NSTEMI. 4. TIA (transient ischemic attack): Patient's neurological symptoms are vague and it is unclear if these may have been related to a TIA. He does have several risk factors which puts him at risk of TIA/stroke. NIH stroke scale of 1 for right upper extremity numbness upon ER arrival Currently no focal neurological deficits. CT head without evidence of acute stroke. Review of records shows patient had a carotid Doppler in October 2023 which showed less than 50% bilateral ICA stenosis. There was mild carotid arthrosclerosis at that time. Echocardiogram at that time had also shown LV systolic function with a EF of 55 to 60%. Mild MR and mild TR. Patient's symptoms of right arm tingling may have been related to atypical chest pain as opposed to TIA 5. Bacteriuria with pyuria: Asymptomatic and not appropriate for treatment at this time we will further discuss with the patient. 6. Hyponatremia: New sodium 131 in the setting of NSTEMI. Will follow repeat BMP in the 7. Hypertension: LVEF October 2023 was 55 to 60%. Will start beta-fernie for heart rate 91 borderline blood pressure 135 in the setting of hypertension hyperlipidemia and diabetes with coronary artery disease PDMP PDMP Reviewed: Not Reviewed Attestations Medical Necessity Statement*: Patient remain in the hospital monitoring overnight post 2 cardiac stents on 06/15/2025. Anticipate discharge home tomorrow Coding Level of Care Code Acute Code for [facility] Fwd Diagnoses Non-ST elevated myocardial infarction (non-STEMI) I21.4 Diabetes mellitus E11.9 Hyperlipidemia E78.5 TIA (transient ischemic attack) G45.9 Bacteriuria with pyuria R82.71; R82.81 Hyponatremia E87.1 Hypertension I10 Time Spent (min) 33
[2025-06-16] MEDS: metoprolol succinate ER (24 HR) 25 mg Tablet PO (12:24)
--- NOTE | 2025-06-16 15:26 | PC.NURSE ---
production coordinator rounds at 0900- gave patient and visitor stroke education book.
--- NOTE | 2025-06-16 17:21 | PC.NURSE ---
Shift Summary: Uneventful shift. Patient has ambulated twice, approximately 200 feet each time. Heart rythm and rate remained within normal limits during ambulation. Vitals within normal throughout the day. Radial and Femoral Cath sites are unremarkable. Started on metoprolol today. No signs of stroke.
--- NOTE | 2025-06-16 18:37 | PC.NURSE ---
At 0630, patient has reported a yellow tint in his vision, some floaters , and a mild headache. Patient states that this is a chronic issue and has occurred on and off since he was 14 years old. He states that he thinks its related to his blood sugar and if he drinks an orange juice it helps. Nurse checked BG and it was 222. Nurse provided an orange juice and tylenol per his request and alerted Dr Garcia. Dr garcia came to bedside. Issues resolved within 10 minutes of drinking orange juice.
--- NOTE | 2025-06-16 23:13 | USCV_ITS ---
Jared Dani Age: 64 Gender: M : 1960 Exam Date: 06/16/2025 09:43 Ordering Phys: Oscar Santana M.D ([email or web address]) Technologist: Exam Location: [facility] [place] Indication: cp tia BP: 135 / 78 HR: 87 Rhythm: Sinus Technical Quality: Adequate MEASUREMENTS (Male / Female) Normal Values 2D ECHO LV Diastolic Diameter PLAX 3.1 cm 4.2 - 5.9 / 3.9 - 5.3 cm IVS Diastolic Thickness 1.4 cm 0.6 - 1.0 / 0.6 - 0.9 cm IVS Systolic Thickness 1.9 cm LVPW Diastolic Thickness 1.4 cm 0.6 - 1.0 / 0.6 - 0.9 cm LVPW Systolic Thickness 1.6 cm LVOT Diameter 2.0 cm LV Ejection Fraction 2D Teich 61.0 % LV Ejection Fraction MOD 4C 66.1 % LV Ejection Fraction MOD 2C 66.6 % LV Ejection Fraction 2C AL 68.5 % LA Diameter 3.5 cm RA Systolic Volume 4C AL 35.0 ml RA Systolic Volume 4C MOD 34.7 ml Aorta at Sinotubular Diameter 3.1 cm IVC Diameter 1.9 cm M-MODE LA Ao Ratio MM 1.2 AV Cusp Separation MM 2.6 cm DOPPLER AV Peak Velocity 126.0 cm/s LVOT Peak Velocity 90.0 cm/s AV Area Cont Eq vti 2.9 cm squared AV Area Cont Eq pk 2.3 cm squared MV Peak Velocity 102.0 cm/s MV Area PHT 4.0 cm squared Mitral E to A Ratio 0.9 TV Peak Velocity 152.5 cm/s TR Peak Velocity 188.0 cm/s TR Peak Gradient 14.1 mmHg TV Peak E Velocity 72.0 cm/s FINDINGS Left Ventricle Normal left ventricular size, systolic function and wall thickness, with no regional wall motion abnormalities. Left ventricular ejection fraction is estimated at 60 %. Normal diastolic function. Right Ventricle The right ventricle is normal in size and function. Right Atrium The right atrium is normal in size. Left Atrium Moderately increased left atrial size. Mitral Valve Thickened mitral valve. No mitral valve stenosis. Trace mitral valve regurgitation. Aortic Valve Structurally normal aortic valve without significant sclerosis or stenosis. There is no aortic regurgitation. Tricuspid Valve Structurally normal tricuspid valve without significant stenosis or regurgitation. Pulmonary artery systolic pressure is normal. Pulmonic Valve Structurally normal pulmonic valve without significant stenosis. There is no pulmonic regurgitation. Pericardium Normal pericardium without effusion. Aorta Normal ascending aorta dimension. IVC The inferior vena cava appears normal. CONCLUSIONS Normal left ventricular size, systolic function and wall thickness, with no regional wall motion abnormalities. Left ventricular ejection fraction is estimated at 60 %. Normal diastolic function. Moderately increased left atrial size. Thickened mitral valve. No mitral valve stenosis. Trace mitral valve regurgitation. There is no pericardial effusion. Right atrial pressure is around 5 mm of mercury. Phyllis Irby MD (Electronically Signed) Final Date: 16 June 2025 13:29 S
[2025-06-17] VITALS (14 sets, daily range): BP systolic 106–145; BP diastolic 61–95; PULSE 82–88; RESP 9–17; TEMP 36.7–36.8; O2SAT 91–95
[2025-06-17 02:56] LABS: Hematocrit 40.3 % (37-53); Hemoglobin 13.20 g/dL (11.27-16.99); Mean Corpuscular HGB Conc 32.8 g/dL (30-55); Mean Corpuscular Hemoglobin 28.5 pg (27-33); Mean Corpuscular Volume 87.0 fl (82-101); Nucleated Red Blood Cells % 0 %; Platelet Count 216 10^3/cmm (157-399); Red Blood Count 4.63 10^6/uL (3.85-5.65); White Blood Count 8.74 10^3/uL (3.29-11.43)
[2025-06-17 03:19] LABS: Anion Gap 16.7 (5-19); Blood Urea Nitrogen 11 mg/dL (8-23); Calcium 8.9 mg/dL (8.5-10.5); Carbon Dioxide 27 mmol/L (22-29); Chloride 98 mmol/L (98-107); Creatinine Clr Calc Pharmacy 140.6272; Glucose 184 mg/dL (65-115); Osmolality Calculated 290 mOsm/kg (285-295); Potassium 3.7 mmol/L (3.5-5.1); Sodium 138 mmol/L (136-145)
--- NOTE | 2025-06-17 08:57 | P.PN_ITS ---
Subjective 2 Subjective: He has done well overnight, no chest pain or shortness of breath. Vitals/I&O/Wt Last Vital Signs Temp 98.2 F 06/17/25 07:34 Pulse 86 06/17/25 07:34 Resp 9 L 06/17/25 07:34 BP 134/95 06/17/25 07:34 Pulse Ox 93 06/17/25 07:34 O2 Del Method Room Air 06/17/25 07:34 Weight last 48 hrs Weight 244 lb 3.2 oz Weight 244 lb 3.2 oz Weight 236 lb Physical Exam 2 Const: COMMON NORMALS: no acute distress and patient oriented x3 GENERAL APPEARANCE: cooperative ORIENTATION/CONSCIOUSNESS: Yes awake, Yes oriented to person, Yes oriented to place and Yes oriented to time Chest: COMMONS NORMALS: normal inspection of the chest and normal palpation of entire chest wall CHEST: Yes Symmetrical chest wall rise Resp: COMMON NORMALS: normal respiratory effort, No retractions, No use of accessory muscles and clear to auscultation bilaterally AUSCULTATION: clear to auscultation bilaterally Cardio: COMMON NORMALS: regular rate, regular rhythm, S1 normal heart sound present, S2 normal heart sound present, No gallops present (Cardio), No clicks present (Cardio), No murmurs present (Cardio) and No rub (Cardio) RATE: r egular rate RHYTHM: regular rhythm HEART SOUNDS: S1 normal heart sound present and S2 normal heart sound present PERIPHERAL PULSES: radial pulses present positive right 2+ and femoral pulses present positive right 2+ Neuro: COMMON NORMALS: patient oriented x3 and moves all extremities S ENSORIUM/ORIENTATION: Yes oriented to person, Yes oriented to place and Yes oriented to time Skin: WOUNDS: Yes surgical site (no hematoma palpable) Details: no odor Data 06/17/25 02:12 06/17/25 02:12 A&P Assessment and plan 1. Non-ST elevated myocardial infarction (non-STEMI): 2. Hypertension: 3. Coronary artery disease: Plan: He is s/p JIGNESH x 2 to the left circumflex. Well plan to discharge home today on aspirin and Plavix, metoprolol, statin and bring him back in 2 to 3 weeks for staged PCI of the RCA/LAD. PDMP PDMP Reviewed: Not Reviewed Attestations 2 Medical Necessity Statement*: DC home Coding Level of Care Code Acute Code for Chg Fwd Diagnoses Non-ST elevated myocardial infarction (non-STEMI) I21.4 Hypertension I10 Coronary artery disease I25.10
[2025-06-17] MEDS: metoprolol succinate ER (24 HR) 25 mg Tablet PO (08:59)
--- NOTE | 2025-06-17 09:16 | PM.DCS ---
Discharge Providers Date of Admission: 06/15/25 23:02 Date of Discharge: June 17, 2025 Attending Provider at Admission: Oscar Santana M.D Attending Provider at Discharge: Oscar Santana M.D Primary Care Provider: Timoteo Farrar MD Diagnoses at Discharge Discharge Diagnosis 1. Non-ST elevated myocardial infarction (non-STEMI): Details from hospital stay: Patient has three-vessel disease by angiogram and received proximal and mid circumflex stents x 2 drug-eluting stents and is started on Plavix 2. Chest pain: Details from hospital stay: Atypical chest pain and right arm paresthesias resolved 3. Hyperlipidemia: Details from hospital stay: Patient has been on statin in the past and is now on high-dose statin with follow-up labs in 2 months 4. Hypertension: Details from hospital stay: HCTZ discontinued due to hyponatremia. I added metoprolol due to coronary artery disease. Patient had blood pressures with systolics 105-145 so I did not increase the Toprol beyond the 25 mg daily current dose. Follow-up outpatient consider increase dose to 50 mg if tolerated and needed 5. Diabetes mellitus: Details from hospital stay: Patient's A1c on 06/06/2025 was 8.3. I recommend that he follow-up with his primary physician Dr. Vidales and consider GLP-1 agonist with increasing data of cardioprotective and stroke protective values in addition to weight loss and improvement in A1c 6. TIA (transient ischemic attack): Details from hospital stay: Symptoms resolved carotid Dopplers negative 7. Bacteriuria with pyuria: Details from hospital stay: Patient has asymptomatic bacteria and pyuria so not treated 8. Hyponatremia: Details from hospital stay: Mild easily resolved but attributable to HCTZ Reason for Visit Reason for Visit: RIGHT ARM NUMBNESS/ Neck/jaw pain Brief History: Dani Coleman is a 64 year old male with past medical history of hypertension, TIA, diabetes who presented to hospital with right arm tingling and numbness. This was associated with difficulty with word finding. Speech difficulty has resolved. Tingling is improved and only has minimal symptoms. ER evaluated patient and per their evaluation does not need tPA. CT head does not show any acute findings. He had recent episodes of chest discomfort. Says has minor chest tightness today as well. Also has been noticing neck pain since . Today's episode of neurological symptoms was associated with diaphoresis. EKG showing borderline ST elevation in inferior leads not meeting STEMI criteria. Initial troponin is over 1100. Cardiac calibration laboratory technician activated for high risk NSTEMI Hospital Course Hospital Course Patient underwent cardiac cath on the night of admission and was found to have multivessel disease. He received PCI with proximal and mid circumflex stents totaling 2 stents. He also has total occlusion of the apical LAD and a 70% stenosis in the RCA. Patient's atypical chest symptoms of right arm numbness resolved. He did have ocular migraine on 06/16/2025 and this is consistent with 3 times a year ocular migraines that he has had since age 12. It was relieved by orange juice and sugar which he takes at home. I discussed with him treatment of this with riboflavin. Additionally carotid Dopplers in regard to his TIA symptoms was negative. Rhythm monitoring was unremarkable. Diabetes with hemoglobin A1c of greater than 8 is recommended to be addressed with his primary care physician and consider GLP-1 agonist to decrease weight decrease coronary artery disease progression and A1c. Physical Exam Narrative: General well-developed well-nourished male in no acute cardiopulmonary stress he is moderately obese CV regular rate and rhythm Lungs clear to auscultation bilaterally Abdomen positive bowel tones soft Calves no tenderness cords pretibial edema Discharge Data Studies Completed and Pending Completed Studies During Hospitalization Category Date Time Status CT head thrombolytic 31065 Stat Cat Scan 06/15/25 19:29 Completed XR chest 1V portable [id number] Stat Exams 06/15/25 19:29 Completed CV carotid duplex BI* [id number] Routine Ultrasound 06/16/25 04:38 Completed CV. echo complete* [id number] Routine Ultrasound 06/16/25 23:13 Completed Pending at discharge Category Date Time Status DIRECTOR EMERGENCY SERVICES request for service Routine Exams 06/15/25 21:06 Ordered Basic Metabolic Panel AM LABS Lab 06/18/25 04:00 Ordered Complete Blood Count w/Auto AM LABS Lab 06/18/25 04:00 Ordered Urine Culture Stat Lab 06/15/25 23:30 Received Radiology Impressions Chest X-Ray 06/15/25 19:29 IMPRESSION: 1. Left basilar atelectasis. Small left-sided pleural effusion would be difficult to exclude. CT may be helpful for further detail if clinically warranted. Head CT 06/15/25 19:29 IMPRESSION: 1. No acute intracranial abnormality. ASSESSMENT: ASPECTS ([place] Stroke Program Early CT Score) is 10. ADDENDUM: 06/15/252027 The findings were verbally communicated by telephone with Dr. TRINIDAD at 8:27 PM CDT on 06/15/2025. Laboratory Results WBC 8.74 10^3/uL (3.29-11.43) 06/17/25 02:12 RBC 4.63 10^6/uL (3.85-5.65) 06/17/25 02:12 Hgb 13.20 g/dL (11.27-16.99) 06/17/25 02:12 Hct 40.3 % (37-53) 06/17/25 02:12 MCV 87.0 fl (82-101) 06/17/25 02:12 MCH 28.5 pg (27-33) 06/17/25 02:12 MCHC 32.8 g/dL (30-55) 06/17/25 02:12 RDW 14.2 % (12.1-15.1) 06/17/25 02:12 Plt Count 216 10^3/cmm (157-399) 06/17/25 02:12 MPV 10.4 fL (7.4-10.4) 06/17/25 02:12 Neut % (Auto) 69.4 % 06/17/25 02:12 Lymph % (Auto) 18.1 % 06/17/25 02:12 Gillespie % (Auto) 10.3 % 06/17/25 02:12 Eos % (Auto) 1.5 % 06/17/25 02:12 Baso % (Auto) 0.5 % 06/17/25 02:12 Neut # (Auto) 6.07 10^3/uL (1.8-7.7) 06/17/25 02:12 Lymph # (Auto) 1.6 10^3/uL (0.8-4.8) 06/17/25 02:12 Gillespie # (Auto) 0.9 10^3/uL (0.2-0.9) 06/17/25 02:12 Eos # (Auto) 0.1 10^3/uL (0.0-0.8) 06/17/25 02:12 Baso # (Auto) 0.0 10^3/uL (0.0-0.1) 06/17/25 02:12 Nucleated RBC % (auto) 0 % 06/17/25 02:12 Nucleated RBCs # 0.0 /100WBC 06/17/25 02:12 PT 13.70 SECONDS (12.1-14.9) 06/15/25 19:10 INR 0.98 (0.8-1.2) 06/15/25 19:10 APTT 27.5 SECONDS (23.9-36.7) 06/15/25 19:10 Sodium 138 mmol/L (136-145) 06/17/25 02:12 Potassium 3.7 mmol/L (3.5-5.1) 06/17/25 02:12 Chloride 98 mmol/L (98-107) 06/17/25 02:12 Carbon Dioxide 27 mmol/L (22-29) 06/17/25 02:12 Anion Gap 16.7 (5-19) 06/17/25 02:12 BUN 11 mg/dL (8-23) 06/17/25 02:12 Creatinine 0.7 mg/dL (0.7-1.2) 06/17/25 02:12 GFR Calculation 114.3 mL/min (90-130) 06/17/25 02:12 Glucose 184 mg/dL (65-115) H 06/17/25 02:12 POC Glucose 202 mg/dL (70-110) H 06/17/25 07:14 Calculated Osmolality 290 mOsm/kg (285-295) 06/17/25 02:12 Calcium 8.9 mg/dL (8.5-10.5) 06/17/25 02:12 Total Bilirubin 0.3 mg/dL (0.15-1.2) 06/15/25 19:10 AST 29 U/L (0-40) 06/15/25 19:10 ALT 43 U/L (0-41) H 06/15/25 19:10 Alkaline Phosphatase 79 U/L (40-130) 06/15/25 19:10 Troponin T Baseline 1159 ng/L (0-15) H* 06/15/25 19:10 Troponin T 120 Minute 610.9 ng/L (0-15) H 06/15/25 22:38 Delta Troponin T -548.1 ABS# (0-10) L 06/15/25 22:38 Troponin T Hi Sens 6Hr 644.9 ng/L (0-15) H 06/16/25 01:30 Troponin T Hi Sens 6Hr Delta -514.1 ng/L (0-12) L 06/16/25 01:30 Total Protein 8.1 g/dL (6.6-8.7) 06/15/25 19:10 Albumin 4.1 g/dL (3.5-5.2) 06/15/25 19:10 Globulin 4.0 g/dL (1.3-4.6) 06/15/25 19:10 Urine Color Yellow (Yellow) 06/15/25 23:30 Urine Appearance Clear (CLEAR) 06/15/25 23:30 Urine pH 7.5 (5-7) 06/15/25 23:30 Ur Specific [place] 1.065 (1.005-1.030) H 06/15/25 23:30 Urine Protein Negative (Negative) 06/15/25 23:30 Urine Glucose (UA) 2+ (Normal) H 06/15/25 23:30 Urine Ketones Negative (Negative) 06/15/25 23:30 Urine Blood 2+ (Negative) A 06/15/25 23:30 Urine Nitrate Negative (Negative) 06/15/25 23:30 Urine Bilirubin Negative (Negative) 06/15/25 23:30 Urine Urobilinogen 1.0 mg/dL (Negative) 06/15/25 23:30 Ur Leukocyte Esterase Negative (Negative) 06/15/25 23:30 Urine RBC 51-100 /hpf (0-2) H 06/15/25 23:30 Urine WBC 0-5 /hpf (0-5) 06/15/25 23:30 Ur Squamous Epith Cells 0-5 /hpf (0-5) 06/15/25 23:30 Amorphous Sediment Not Reportable 06/15/25 23:30 Urine Bacteria None seen /hpf (NONE) 06/15/25 23:30 Hyaline Casts 0-4 /lpf H 06/15/25 23:30 Urine Opiates Screen Negative ng/mL (Negative) 06/15/25 23:30 Ur Barbiturates Screen Negative ng/mL (Negative) 06/15/25 23:30 Ur Phencyclidine Scrn Negative ng/mL (Negative) 06/15/25 23:30 Ur Amphetamines Screen Negative ng/mL (Negative) 06/15/25 23:30 U Benzodiazepines Scrn Negative ng/mL (Negative) 06/15/25 23:30 Urine Cocaine Screen Negative ng/mL (Negative) 06/15/25 23:30 U Marijuana (THC) Screen Negative ng/mL (Negative) 06/15/25 23:30 Vitals Last Vital Signs Temp 98.2 F 06/17/25 07:34 Pulse 86 06/17/25 07:34 Resp 9 L 06/17/25 07:34 BP 134/95 06/17/25 07:34 Pulse Ox 93 06/17/25 07:34 O2 Del Method Room Air 06/17/25 07:34 Discharge Plan Discharge Patient Disposition: Home Condition: Good Prescriptions: New atorvastatin 40 mg Tablet 80 mg PO BEDTIME Qty: 30 1RF clopidogrel 75 mg Tablet 75 mg PO DAILY Qty: 30 1RF metoprolol succinate 25 mg Tablet Extended Release 24 Hr 25 mg PO DAILY Qty: 30 1RF riboflavin (vitamin B2) 400 mg tablet 400 mg PO DAILY Qty: 30 0RF Rx Instructions: to prevent migraines Continued (DME) blood-glucose meter Misc See Rx Instructions .MEDSUPPLY Qty: 1 0RF Rx Instructions: Use as directed for checking blood sugar pioglitazone [Actos] 15 mg tablet 15 mg PO DAILY Qty: 30 11RF nitroglycerin 0.4 mg tablet, sublingual 0.4 mg sublingual Q5M PRN (Reason: chest pain) Qty: 20 11RF Rx Instructions: do not exceed 3 doses per episode lisinopril 20 mg tablet 20 mg PO DAILY Qty: 90 3RF metformin 1,000 mg tablet See Rx Instructions .ROUTE .COMPLEX Qty: 60 11RF Dose Instruction: TAKE 1 TABLET BY MOUTH TWICE DAILY WITH MEALS Rx Instructions: TAKE 1 TABLET BY MOUTH TWICE DAILY WITH MEALS (DME) OneTouch Ultra Test Strip See Rx Instructions .ROUTE .COMPLEX Qty: 200 12RF Dose Instruction: USE DIRECTED with glucometer TO check blood sugar Rx Instructions: USE DIRECTED with glucometer TO check blood sugar allopurinol 100 mg tablet 100 mg PO DAILY Qty: 30 11RF glimepiride 4 mg tablet See Rx Instructions .ROUTE .COMPLEX Qty: 60 11RF Dose Instruction: TAKE 1 TABLET BY MOUTH TWICE DAILY WITH BREAKFAST Rx Instructions: TAKE 1 TABLET BY MOUTH TWICE DAILY WITH BREAKFAST montelukast 10 mg tablet See Rx Instructions .ROUTE .COMPLEX Qty: 30 11RF Dose Instruction: TAKE 1 TABLET BY MOUTH EVERY DAY Rx Instructions: TAKE 1 TABLET BY MOUTH EVERY DAY fluticasone propionate 50 mcg/actuation spray,suspension See Rx Instructions .ROUTE .COMPLEX Qty: 16 11RF Dose Instruction: USE 2 SPRAYS IN EACH NOSTRIL EVERY DAY NEEDED FOR sinus mass FOR 12 MONTHS Rx Instructions: USE 2 SPRAYS IN EACH NOSTRIL EVERY DAY NEEDED FOR sinus mass FOR 12 MONTHS Benadryl Allergy 50 mg Tablet 50 mg PO Q6H PRN (Reason: sleep ) fexofenadine [Monica] 180 mg Tablet 180 mg PO DAILY omeprazole 20 mg Tablet,Delayed Release (Dr/Ec) 20 mg PO DAILY cholecalciferol (vitamin D3) [Vitamin D3] 125 mcg (5,000 unit) Tablet 125 mcg PO DAILY mecobalamin (vitamin B12) [B12 Active] 1,000 mcg Tablet,Chewable 1,000 mcg PO DAILY aspirin [Adult Aspirin Regimen] 81 mg tablet,delayed release (DR/EC) 81 mg PO DAILY Discontinued hydrochlorothiazide 25 mg tablet See Rx Instructions .ROUTE .COMPLEX Qty: 90 3RF Dose Instruction: TAKE 1 TABLET BY MOUTH EVERY DAY FOR hypertension Rx Instructions: TAKE 1 TABLET BY MOUTH EVERY DAY FOR hypertension Branch Associate [place] for DC: Cardiology Referrals: Oscar Santana M.D [Physician, Cardiology] - 1 week Timoteo Farrar MD [Primary Care Provider, [facility]] - 1 week Discharge Diet: Cardiac and Diabetic Discharge Activity: Increase activity as tolerated Patient Instructions: Metoprolol (By mouth), Atorvastatin (By mouth), Clopidogrel (By mouth), Riboflavin 5-Phosphate (Into the eye), Coronary Angioplasty (DC), Heart Healthy Diet (DC), Basic Carbohydrate Counting (DC), Ocular Migraine (GEN), Coronary Intravascular Stent Placement (DC), Opioid Safety, Post Angiogram Home Care Instructions, Patient Portal & Ashley Instructions Activity Restrictions/Additional Instructions: If you have chest pain decrease your physical activity to under that threshold and take nitroglycerin if you have chest pain or pressure with difficulty breathing or sweating. Take riboflavin 400 mg daily to prevent your ocular migraines. Studies show that this decreases migraines and 50% of people taking it. Talk to your physician about taking GLP-1 agonist such as semaglutide or tirzepatide to improve your A1c decrease coronary artery disease and slow gastric output which would result in weight loss Eat an 1800-calorie diabetic diet decreasing to 1600 mg once you get below 200 pounds Discharge Attestations Time Spent in Discharge Care*: greater than 30 min Quality Metrics Clinical Quality Measures [ Acute Myocardial Infaction { Clinical Trial Participant: No; Contraindication to aspirin: None; Aspirin prescribed; Contraindication to statin: None; Statin prescribed; Contraindication to PCI: None; PCI performed;}] Coding Level of Care Code 23701 Diagnoses Non-ST elevated myocardial infarction (non-STEMI) I21.4 Chest pain R07.9 Hyperlipidemia E78.5 Hypertension I10 Diabetes mellitus E11.9 TIA (transient ischemic attack) G45.9 Bacteriuria with pyuria R82.71; R82.81 Hyponatremia E87.1 Time Spent (min) 40
--- NOTE | 2025-06-17 10:30 | PC.NURSE ---
Patient was given all discharge information. All of the new prescriptions were sent to their preferred pharmacy. All Ivs were discontinued. Patient was stable during discharge.
--- NOTE | 2025-06-17 11:39 | PC.NURSE ---
field service coordinator rounds- pt sitting on the edge of the bed, awaiting discharge, reinforced stroke education book: s/s of stroke, immediate medical help, risk factors with modification, and medications.
== END 2025-06-17 10:29 | disposition home or self-care (01) | DRG 322 ==
LOC: ER 19:34 → CCL 20:34 → ICU 23:03
PROVIDERS: Admitting Provider Internal Medicine; Emergency Provider Emergency Medicine; Family Provider Family Medicine; PCP Family Medicine; Visit Provider Internal Medicine
PROC: 027035Z Dilation of Coronary Artery, One Artery with Two Drug-eluting Intraluminal Devices, Percutaneous Approach (ICD-10-PCS; principal; 2025-06-15 21:30)
PROC: 027035Z Dilation of Coronary Artery, One Artery with Two Drug-eluting Intraluminal Devices, Percutaneous Approach (ICD-10-PCS; 2025-06-15 21:30)
DX: I21.4 Non-ST elevation (NSTEMI) myocardial infarction (principal); E87.1 Hypo-osmolality and hyponatremia; E78.5 Hyperlipidemia, unspecified; I10 Essential (primary) hypertension; E11.9 Type 2 diabetes mellitus without complications; M10.9 Gout, unspecified; I25.10 Atherosclerotic heart disease of native coronary artery without angina pectoris; G43.B0 Ophthalmoplegic migraine, not intractable; R20.2 Paresthesia of skin; Z79.84 Long term (current) use of oral hypoglycemic drugs; Z79.82 Long term (current) use of aspirin
CPT/HCPCS: 36415; 36416; 70450; 71045; 80048; 80053; 80306; 81001; 82962; 84484; 85025; 85347; 85610; 85730; 87086; 92978; 93005; 93306; 93454; 93880; 96365; 96366; 96372; 96375; 99152; 99153; 99285; C1725; C1753; C1760; C1769; C1874; C1887; C1894; C9600; G0269; J0461; J1644; J1815; J2250; J2405; J3010; J3490; J7030; J7040; J9999; Q9967

== ENCOUNTER 2025-06-20 10:08 | Emergency (ER) | payer OTHER, SELFPAY ==
[2025-06-20 10:17] VITALS: BP 151/92; PULSE 89; RESP 16; TEMP 36.7; O2SAT 95; BMI 32.5
--- NOTE | 2025-06-20 10:27 | W.ED.EXTPRO ---
HPI - Extremity Problem General: Chief complaint: Extremity Problem,Nontraumatic Stated complaint: Feeling Numbness in both legs Time Seen by Provider: 06/20/25 10:14 Source: patient and family Mode of arrival: ambulatory Limitations: no limitations History of Present Illness: Patient is a nice 64-year-old male who presents to ED today along with his for concerns of numbness to his bilateral lower extremities. Patient tells me yesterday he woke up and he felt like I had wool socks on my legs . He feels like from about his knees/calfs down, is numb. He is a diabetic and has diabetic neuropathy but states that normally only affects his fingertips and toes. Patient was admitted to the hospital last week and underwent cardiac stenting. He states he was placed on new medications including clopidogrel, atorvastatin, and riboflavin. He is not having any pain to his legs. He has not noticed any redness or swelling. He does not complain of any weakness and has continued to ambulate normally. He is not complaining any of any back pain, saddle anesthesia, bowel/bladder incontinence/retention. MD Complaint: other (leg numbness) Onset (ago): day(s) (yesterday) Pain Consistency: constant Location: left, right and lower extremity Radiation: none Relieving factors: nothing Exacerbating factors: nothing Associated symptoms: Deny chest pain, fever(s) or rash Context: recent surgery/procedure Related Data Home Medications ?Medication ?Instructions ?Recorded ?Confirmed aspirin 81 mg tablet,delayed 81 mg PO DAILY 06/16/25 06/16/25 release (Adult Aspirin Regimen) cholecalciferol (vitamin D3) 125 125 mcg PO DAILY 06/16/25 06/16/25 mcg (5,000 unit) tablet (Vitamin D3) diphenhydramine HCl 50 mg tablet 50 mg PO Q6H PRN sleep 06/16/25 06/16/25 (Benadryl Allergy) fexofenadine 180 mg tablet 180 mg PO DAILY 06/16/25 06/16/25 mecobalamin (vitamin B12) 1,000 1,000 mcg PO DAILY 06/16/25 06/16/25 mcg chewable tablet (B12 Active) omeprazole 20 mg tablet,delayed 20 mg PO DAILY 06/16/25 06/16/25 release Previous Rx's ?Medication ?Instructions ?Recorded blood-glucose meter #1 ea 10/19/23 lisinopril 20 mg tablet 20 mg PO DAILY #90 tabs 06/19/24 metformin 1,000 mg tablet See Rx Instructions .Route 10/14/24 .COMPLEX #60 tabs blood sugar diagnostic (OneTouch #200 strips 10/24/24 Ultra Test strips) allopurinol 100 mg tablet 100 mg PO DAILY #30 tabs 01/20/25 fluticasone propionate 50 See Rx Instructions .Route 01/20/25 mcg/actuation nasal .COMPLEX #16 grams spray,suspension glimepiride 4 mg tablet See Rx Instructions .Route 01/20/25 .COMPLEX #60 tabs montelukast 10 mg tablet See Rx Instructions .Route 01/20/25 .COMPLEX #30 tabs pioglitazone 15 mg tablet (Actos) 15 mg PO DAILY #30 tabs 03/10/25 nitroglycerin 0.4 mg sublingual 0.4 mg sublingual Q5M PRN chest 06/12/25 tablet pain #20 tabs atorvastatin 40 mg tablet 80 mg (2 x 40 mg) PO BEDTIME #30 06/17/25 tabs clopidogrel 75 mg tablet 75 mg PO DAILY #30 tabs 06/17/25 metoprolol succinate 25 mg 25 mg PO DAILY #30 tabs 06/17/25 tablet,extended release 24 hr riboflavin (vitamin B2) 400 mg 400 mg PO DAILY opthalmic migraine 06/17/25 tablet #30 tabs Allergies Allergy/AdvReac Type Severity Reaction Status Date / Time tetracycline AdvReac Intermediate GI Verified 01/25/24 13:28 Review of Systems Const: Denies: fever(s), chills, body aches, fatigue or malaise Eyes: Denies: change in vision or blurry vision Card: Denies: chest pain, palpitations, irregular heart rhythm, edema, swelling of feet/ankles, lightheadedness, syncope, pre-syncope, dyspnea on exertion, orthopnea, leg pain with exertion or acrocyanosis Resp: Denies: dyspnea, productive cough or pain on inspiration GI: Denies: abdominal pain, nausea, vomiting, heartburn or diarrhea : Denies: difficulty urinating or dysuria Musc: Denies: neck pain, back pain, extremity pain, extremity swelling, joint pain, joint swelling or joint redness Skin/Breast: Denies: rash Neuro: Reports: numbness in extremities and sensory changes; Denies: headache(s), weakness in extremities, difficulty walking, frequent falls or dizziness PFSH ED PFSH: Medical History Coronary artery disease Bacteriuria with pyuria Hyperlipidemia Hypertension Diabetes mellitus Gout Social History Smoking and tobacco/nicotine status: never used tobacco/nicotine Physical Exam Const: COMMON NORMALS: no acute distress, average body habitus, patient oriented x3, no limitations, healthy appearing, alert and well nourished GENERAL APPEARANCE: cooperative ORIENTATION/CONSCIOUSNESS: Yes awake, Yes oriented to person, Yes oriented to place and Yes oriented to time Neck/C-Spine: COMMON NORMALS: full ROM CERVICAL SPINE: Yes cervical ROM normal, No Cervical spine tenderness and No Lhermitte's sign positive Resp: COMMON NORMALS: normal respiratory effort and clear to auscultation bilaterally AUSCULTATION: clear to auscultation bilaterally Cardio: COMMON NORMALS: regular rate and regular rhythm RATE: regular rate RHYTHM: regular rhythm Back/Pelvis: COMMON NORMALS: thoracic and lumbar spine normal to inspection, no thoracic nor lumbar tenderness, thoraco-lumbar ROM normal and straight leg raise negative bilaterally LUMBAR SPINE/LOWER BACK: No lumbar spinal tenderness, No paraspinal muscle tenderness, No mass present and Yes straight leg raise negative bilaterally PELVIS: Yes buttocks normal and No sciatic notch tenderness SACROILIAC JOINTS: Yes SI joints normal SACRUM: no tenderness COCCYX: no tenderness Extremity: COMMON NORMALS: normal to inspection, full ROM, capillary refill normal, no joint enlargement, no clubbing, cyanosis or edema, no calf tenderness and no pedal edema GENERAL: Yes normal exam except as noted OTHER: patient is able to feel me touching his bilateral LEs but states it feels different ; paresthesias affecting knees distally in a stocking distribution he has no calf pain, no redness/warmth, streaking; no edema to legs; pulses are easily palpable; normal cap refill Neuro: COMMON NORMALS: patient oriented x3, moves all extremities, no focal motor deficits and gait normal SENSORIUM/ORIENTATION: Yes alert, Yes oriented to person, Yes oriented to place and Yes oriented to time SPEECH: speech normal GAIT: Yes Normal gait present MOTOR EXAM: 5/5 motor strength present throughout Course Vital Signs: Vital signs: Vital Signs Temperature 98.1 F 06/20/25 10:17 Pulse Rate 89 06/20/25 10:17 Respiratory Rate 16 06/20/25 10:17 Blood Pressure 151/92 06/20/25 10:17 Pulse Oximetry 95 06/20/25 10:17 Oxygen Delivery Me thod Room Air 06/20/25 10:17 MDM - Extremity (Nontraumatic) Medical Decision Making Patient here for stocking-like distribution peripheral neuropathy affecting his bilateral lower extremities. Clinically I have no concern for acute arterial occlusion/DVT. He has no complaints of back pain, trouble ambulating, saddle anesthesia, bowel/bladder incontinence/retention. He has no weakness to suggest demyelinating process. Case discussed with Dr. Cooley who agrees with care plan here in the emergency department. He does have primary care follow-up scheduled for Monday. Medical Records I reviewed the patient's medical records. Lab Data I reviewed the patient's lab results. No radiology studies performed this visit Discharge Plan Discharge Condition: Stable Prescriptions: No Action (DME) blood-glucose meter Misc See Rx Instructions .MEDSUPPLY Qty: 1 0RF Rx Instructions: Use as directed for checking blood sugar pioglitazone [Actos] 15 mg tablet 15 mg PO DAILY Qty: 30 11RF nitroglycerin 0.4 mg tablet, sublingual 0.4 mg sublingual Q5M PRN (Reason: chest pain) Qty: 20 11RF Rx Instructions: do not exceed 3 doses per episode lisinopril 20 mg tablet 20 mg PO DAILY Qty: 90 3RF metformin 1,000 mg tablet See Rx Instructions .ROUTE .COMPLEX Qty: 60 11RF Dose Instruction: TAKE 1 TABLET BY MOUTH TWICE DAILY WITH MEALS Rx Instructions: TAKE 1 TABLET BY MOUTH TWICE DAILY WITH MEALS (DME) OneTouch Ultra Test Strip See Rx Instructions .ROUTE .COMPLEX Qty: 200 12RF Dose Instruction: USE DIRECTED with glucometer TO check blood sugar Rx Instructions: USE DIRECTED with glucometer TO check blood sugar allopurinol 100 mg tablet 100 mg PO DAILY Qty: 30 11RF glimepiride 4 mg tablet See Rx Instructions .ROUTE .COMPLEX Qty: 60 11RF Dose Instruction: TAKE 1 TABLET BY MOUTH TWICE DAILY WITH BREAKFAST Rx Instructions: TAKE 1 TABLET BY MOUTH TWICE DAILY WITH BREAKFAST montelukast 10 mg tablet See Rx Instructions .ROUTE .COMPLEX Qty: 30 11RF Dose Instruction: TAKE 1 TABLET BY MOUTH EVERY DAY Rx Instructions: TAKE 1 TABLET BY MOUTH EVERY DAY fluticasone propionate 50 mcg/actuation spray,suspension See Rx Instructions .ROUTE .COMPLEX Qty: 16 11RF Dose Instruction: USE 2 SPRAYS IN EACH NOSTRIL EVERY DAY NEEDED FOR sinus mass FOR 12 MONTHS Rx Instructions: USE 2 SPRAYS IN EACH NOSTRIL EVERY DAY NEEDED FOR sinus mass FOR 12 MONTHS Benadryl Allergy 50 mg Tablet 50 mg PO Q6H PRN (Reason: sleep ) fexofenadine 180 mg Tablet 180 mg PO DAILY omeprazole 20 mg Tablet,Delayed Release (Dr/Ec) 20 mg PO DAILY cholecalciferol (vitamin D3) [Vitamin D3] 125 mcg (5,000 unit) Tablet 125 mcg PO DAILY mecobalamin (vitamin B12) [B12 Active] 1,000 mcg Tablet,Chewable 1,000 mcg PO DAILY aspirin [Adult Aspirin Regimen] 81 mg tablet,delayed release (DR/EC) 81 mg PO DAILY atorvastatin 40 mg Tablet 80 mg PO BEDTIME Qty: 30 1RF clopidogrel 75 mg Tablet 75 mg PO DAILY Qty: 30 1RF metoprolol succinate 25 mg Tablet Extended Release 24 Hr 25 mg PO DAILY Qty: 30 1RF riboflavin (vitamin B2) 400 mg tablet 400 mg PO DAILY Qty: 30 0RF Rx Instructions: to prevent migraines Referrals: Timoteo Farrar MD [Primary Care Provider, Family Practice] Print Language: Danish Coding Level of Care Code ED [employer]
[2025-06-20 10:50] LABS: Hematocrit 41.3 % (37-53); Hemoglobin 14.00 g/dL (11.27-16.99); Mean Corpuscular HGB Conc 33.9 g/dL (30-55); Mean Corpuscular Hemoglobin 29.4 pg (27-33); Mean Corpuscular Volume 86.8 fl (82-101); Nucleated Red Blood Cells % 0 %; Platelet Count 280 10^3/cmm (157-399); Red Blood Count 4.76 10^6/uL (3.85-5.65); White Blood Count 8.65 10^3/uL (3.29-11.43)
[2025-06-20 11:06] LABS: Alanine Aminotransferase 29 U/L (0-41); Albumin Level 3.7 g/dL (3.5-5.2); Alkaline Phosphatase 76 U/L (40-130); Anion Gap 19.9 (5-19); Aspartate Amino Transferase 26 U/L (0-40); Blood Urea Nitrogen 12 mg/dL (8-23); Calcium 9.6 mg/dL (8.5-10.5); Carbon Dioxide 25 mmol/L (22-29); Chloride 98 mmol/L (98-107); Creatinine Clr Calc Pharmacy 108.4595; Globulin 3.9 g/dL (1.3-4.6); Glucose 160 mg/dL (65-115); Osmolality Calculated 291 mOsm/kg (285-295); Potassium 3.9 mmol/L (3.5-5.1); Sodium 139 mmol/L (136-145); Total Protein 7.6 g/dL (6.6-8.7)
--- NOTE | 2025-06-20 11:10 | PC.PHAR ---
Pt was instructed to stop HCTZ 25mg at discharge 06/17/25. He will talk to his pcp next week about it and his Omeprazole 20mg.
[2025-06-20 11:21] VITALS: BP 147/89; PULSE 54; O2SAT 98
== END 2025-06-20 11:22 | disposition home or self-care (01) ==
PROVIDERS: Emergency Provider Physician Assistant; PCP Family Medicine
DX: E11.42 Type 2 diabetes mellitus with diabetic polyneuropathy (principal); Z79.84 Long term (current) use of oral hypoglycemic drugs; Z79.82 Long term (current) use of aspirin; Z79.02 Long term (current) use of antithrombotics/antiplatelets; E78.5 Hyperlipidemia, unspecified; I10 Essential (primary) hypertension; I25.10 Atherosclerotic heart disease of native coronary artery without angina pectoris
CPT/HCPCS: 36415; 80053; 85025; 99283

== ENCOUNTER 2025-07-07 06:01 | Outpatient (CLI) | payer OTHER, SELFPAY ==
[2025-07-07] VITALS (55 sets, daily range): BP systolic 114–172; BP diastolic 73–113; PULSE 73–97; RESP 8–24; TEMP 36.6–36.8; O2SAT 91–97; BMI 32.6
--- NOTE | 2025-07-07 06:00 | XACV_ITS ---
Exam Room: 2 Ht: 183 cm Wt: 109 kg BSA: 2.39 m2 Gender: Male : 1960 Any Known Allergies: Other Exam Priority: Routine Procedure(s): Procedure Description: Diagnostic procedure Procedure Description: PCI procedure Procedure Description: Coronary IVUS Procedure Description: Drug Eluting Coronary Stent Procedure Description: PTCA Procedure Description: Coronary Angiography Procedure Description: Pressure Wire Diagnostic Cath Status: Elective Diagnostic Findings * INDICATION: Staged PCI of proximal RCA. * Left coronary arteries not injected as this is a staged PCI procedure. * Proximal Right Coronary Artery: obstructive 70-80% stenosis. Distally has severe diffuse disease. * Coronary angiography shows right dominance. PCI Status: Elective PCI Indication: Staged PCI Interventional Findings * Procedure detail: Patient here for staged PCI of proximal RCA stenosis. Stenosis was borderline 70 to 80% on initial image. We decided to do IFR however because of severe diffuse distal disease IFR values were inconsistent. We then performed IVUS that showed 80% plaque burden. Given significant angiographic appearance and IVUS confirmation of severe plaque burden, we decided to proceed with PCI. We predilated the stenosis with 4.0 x 12 mm semicompliant balloon. This caused distal embolization with occlusion of distal diffusely diseased artery. This was followed by placement of 4.0x26mm resolute scar JIGNESH. Flow improved at end of procedure. We put patient on aggrastat for resolution of distal thrombus. Patient left the electroplating laborer in a stable condition.. * Proximal Right Coronary Artery: 70% stenosis treated with a AB TREK 4.00X12 RX BALLOON, and MDT R SCAR 4.0X26 JIGNESH. 0% residual stenosis, CHRIS: 3 flow. Conclusions 1. Severe proximal RCA stenosis s/p PCI with 1 stent. 2. Proximal Right Coronary Artery was treated with a Balloon, and Drug Eluting Stent. Recommendations * Dual antiplatelet therapy with aspirin and plavix for atleast 1 year. * Aggrastat gtt for 4 hours. * Outpatient cardiology follow up in 2 weeks. Interventional RX Recommendation: PCI w/o planned CABG Diagnostic RX Recommendation: PCI w/o planned CABG Anticoagulation: Heparin Pressures Phase:Rest AO : 145 / 77 ( 106 ) @ 8:56:00 AM Clinical Evaluation EBL: 5mL-10mL Procedural Details Procedure Consent Obtained. Pre-Procedure Time Out. Identified patient by full name and date of as verbalized by the patient/guarantor. Does the consent match the physician's order: Yes. Accurate & Complete Informed Consent: Yes. Inpatient/Outpatient History & Physical on Chart: Yes. If H&P is completed, is and addenduem needed: No. Visualize and Verify Site with Patient/Guarantor: N/A. Relevant Radiology Images available: Yes. The risks, benefits, and alternatives of sedation and/or procedure were discussed by physician. The patient agrees to continue. Procedure started. [facility] Clinical Fraility Score: 3: Managing Well. Hrbp Indications: Stable Known CAD/Staged PCI of the RCA. Chest Pain Symptom Assessment: Typical Angina Symptoms. Cardiovascular Instability: No. Correct patient, site and procedure confirmed by cath team. PERRLA. Strong, equal hand product safety tester bilaterally. Lungs clear x 5 lobes. IV Site on Arrival: 20 gauge in the right anticubital. IV Fluids: 0.9% NaCl at KVO. 0 mL infused prior to electroplating laborer. Pre Procedural Pulses: bilateral dorsalis pedis was 1+. Pre Procedural Pulses: bilateral posterior tibial was 1+. Pre Procedural Pulses: bilateral radial was 2+. Oxygen started at 2liters/min via nasal canula. bilateral groins was prepped with chloroprep then draped in the usual sterile fashion. Baseline sample Acquired. HR: 75 BPM. Physician notified. Patient's family in CPRU room #3. Dr. Santana will update at the completion of the procedure. Equipment: 6F - Femoral. Cardiac Cath Pack. ACIST Manifold Kit Model BT 2000. Heparinized Saline (2 units/mL), 1000 mL bag. Kit, Micropuncture. Physician arrived. Physician scrubbed in. Immediate Pre-Procedure Time Out. Correct Patient: Yes; Correct Procedure: Yes; Correct Site: Yes; Correct Patient Position: Yes; Correct Supplies: Yes; Dried Flammable Prep: Yes; Blood Products Available: N/A;. Lidocaine 1% infiltrated to the left groin. Arterial access obtained with micropuncture set using ultrasound guidance. Lidocaine 1% infiltrated to the left groin. 6 slovenian JR 4 guide catheter was inserted over the wire. Cine of the RCA performed. iFR guidewire was advanced through the guide catheter to lesion in the prox RCA. iFR of the Proximal RCA = 0.96. iFR wire out OTW. IVUS catheter in OTW. IVUS of the Proximal RCA performed. IVUS catheter out OTW. Inflation number : 1 A AB TREK 4.00X12 RX BALLOON was prepped and advanced across the Prox RCA , then inflated to 8 PAIGE for 0:13 seconds. Inflation number: 2 The AB TREK 4.00X12 RX BALLOON was reinflated across the Prox RCA, to 8 PAIGE for 0:11 seconds. Balloon out. Resolute Scar 4.0mm x 26mm stent in, unable to cross, removed intact. Runthrough guidewire was advanced through the guide catheter to lesion in the prox RCA. iFR wire out. Inflation Number : 3 Arturo ESCALANTE R SCAR 4.0X26 JIGNESH -Lot Number# [id number] Exp. was prepped and advanced across the Prox RCA. The stent was deployed at 12 PAIGE for 0:23 seconds. Stent balloon out over wire. IVUS catheter in OTW. IVUS of the Proximal RCA performed. IVUS catheter out OTW. ACT drawn. Results out of range HI. Will redraw. Results checked. Wire out. ACT drawn. Results 348 seconds. Therapeutic limits - pre-heparin administration 90-150 seconds and monitoring heparin during a vascular procedure >250 seconds. Guide catheter out OTW. A Left femoral angiogram was performed to determine safe placement of closure device. Physician scrubbed out. A Suture was successful obtaining hemostatsis at the Left Femoral artery insertion site. Vital chart was stopped. Sheath(s) sutured into position with 2-0 silk and sterile 4x4's and Op-site applied over the site. No oozing or signs and symptoms of hematoma noted. Arterial sheath flushed and connected to tranducer and pressure bag with heparinized saline. Post Procedure: Pulses reassessed and unchanged. PERRLA. Strong, equal hand product safety tester bilaterally. No VTE prophylaxis required. Medication's Wasted: Nitro = 49.6 mg. Total IV fluids: 50 mL. PCI Indication: CAD (without ischemic symptoms). Post-op diagnosis: DEX x 1 to Proximal RCA. Complications: none. Estimated blood loss: 5mL-10mL. Responsiveness - Normal response to verbal stimuli; alert and oriented, PERRLA. Airway - Unaffected, no intervention required; spontaneous ventilation. Circulation: W/N/L, pulses unchanged. Nausea/Vomiting: No. Procedure completed. Patient transferred by bed to 1st floor. Access Site Site: Left Femoral artery Sheath Size: 6 Fr Hemostasis Method: Suture Hemostasis Success: Successful Procedure Medications Start: 7:41 AM Stop: 7:41 AM Medication: Versed Amount: 1 mg Route: I.V. Start: 7:41 AM Stop: 7:41 AM Medication: Fentanyl Amount: 50 mcg Route: I.V. Start: 7:50 AM Stop: 7:50 AM Medication: Fentanyl Amount: 25 mcg Route: I.V. Start: 7:54 AM Stop: 7:54 AM Medication: Versed Amount: 1 mg Route: I.V. Start: 7:55 AM Stop: 7:55 AM Medication: Heparin Amount: 9000 units Route: I.V. Start: 8:04 AM Stop: 8:04 AM Medication: Nitrogylcerin Amount: 200 mcg Route: I.C. Start: 8:15 AM Stop: 8:15 AM Medication: Heparin Amount: 1000 units Route: I.V. Start: 8:18 AM Stop: 8:18 AM Medication: Fentanyl Amount: 25 mcg Route: I.V. Start: 8:24 AM Stop: 8:24 AM Medication: Heparin Amount: 1000 units Route: I.V. Start: 8:24 AM Stop: 8:24 AM Medication: Nitrogylcerin Amount: 200 mcg Route: I.C. Start: 8:28 AM Stop: 8:28 AM Medication: Aggrastat 12.5 mg/250 mL Amount: 55 ml Route: I.V. bolus Start: 8:28 AM Stop: 8:28 AM Medication: Aggrastat 12.5 mg/250 mL Amount: 19.8 ml/hr Route: I.V. bolus Start: 8:37 AM Stop: 8:37 AM Medication: Plavix Amount: 300 mg Route: P.O. I, the attending physician, have reviewed and verified all procedure medications. Yes, all medications given per verbal order History/Risk Factors Hypertension: Yes Dyslipidemia: Yes Peripheral Arterial Disease (PAD): No Myocardial Infarction (AK): Yes Obesity: Yes Renal Disease: No Tobacco Use: Never Prior Interventions PCI: Yes CABG: No Valve Surgery: No Date of PCI: 06/15/2025 Report Signatures Finalized by Oscar Santana MD on 07/13/2025 09:59 AM
--- NOTE | 2025-07-07 07:31 | W.PM.OPSUD ---
Surgery/Procedure H&P Update DATE OF PROCEDURE: July 07, 2025 DATE H&P PERFORMED: 06/23/25 H&P UPDATE INFORMATION: I have reviewed H&P completed within last 30 days, I have examined patient prior to procedure and No changes to prior documentation PREOP DIAGNOSIS: Severe proximal RCA stenosis PRIMARY INDICATION FOR PROCEDURE: Severe proximal RCA stenosis PLANNED PROCEDURE: Operation Date: 07/07/25 07:00 Proposed Procedures p Percutaneous Coronary Intervention - Staged PCI(Not Applicable) - Oscar Santana M.D PATIENT REASSESSED PRIOR TO SEDATION, WITH NO CHANGE NOTED: Yes PHYSICAL EXAM: alert, oriented x 3, clear to auscultation bilaterally and regular rate & rhythm AIRWAY EVAL/ANESTHESIA PLAN: normal airway, ASA III, Monitored Anesthesia, Local Anesthesia, Risks, benefits & alternatives of sedation and/or procedure discussed and Patient agrees to continue as planned ADDITIONAL INFORMATION: Moderate sedation
--- NOTE | 2025-07-07 08:44 | PM.PROC ---
Procedure Note: Date of procedure: 07/07/25 Pre-procedure diagnosis: Staged PCI of proximal RCA Post-procedure diagnosis: other (Status post PCI of proximal RCA with 1 stent) Procedure: Severe proximal RCA stenosis confirmed with IVUS plaque burden of 80%. Also appearance of possible thrombus. Status post PCI with 1 stent. Had distal diffuse disease and distal embolization post stenting. Flow is slow Dual antiplatelet therapy with aspirin and Plavix. We will keep patient on Aggrastat for 4 hours High intensity statin therapy Performing Provider: Oscar Santana Complications: None Condition: stable Disposition: floor Coding Level of Care Code Acute Code for [facility] Kylie
--- NOTE | 2025-07-07 12:11 | PC.NURSE ---
Aggrastat drip stopped Pt develop a 2 to 3cm hematoma and bleeding around left groin site. Stopped drip, held manual pressure for [address] Santana.
--- NOTE | 2025-07-07 12:23 | ECG_ITS ---
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 Measurements Intervals Hurricane Rate: 92 P: 42 CT: 151 QRS: -20 QRSD: 92 T: 268 QT: 368 QTc: 457 Interpretive Statements SINUS RHYTHM Features of recent inferolateral wall TX Compared to ECG 06/16/2025 02:44:59 ST (T wave) deviation no longer present Myocardial infarct finding no longer present Electronically Signed On 07-10-2025 23:33:09 CDT by Doc Nicole M.D. [email or web address]
[2025-07-07 13:02] LABS: Partial Thromboplastin Time 44.3 SECONDS (23.9-36.7)
[2025-07-07] MEDS: fentaNYL 50 mcg/mL INJ 2mL IVP (13:20)
--- NOTE | 2025-07-07 13:30 | PC.NURSE ---
sheath pulled explain procedure to pt. fentanyl iv pre sheath removal given. manual pressure held for 5 mins then house sup took over for 10 mins, pt does have some small hematoma prior to sheath pull then during sheath pull has small hematoma develop just below the access site, pressure applied for 10 mins. total time on manual pressure held for [address] Santana via telephone and came at bedside to check pt and nurses during sheath pulling. left leg pulses are palpable +3. no increased hematoma or bleeding. activity restrictions discussed to pt such as bedrest for 6 hrs. can get out of bed and ambulate after bedrest. informed pt to notify nurse for any unusual pain,pressure,swelling or bleeding on left groin and to alert nurse for any chest pain or discomfort. Pt verbalizes understanding. call light provided and within reach on pt.
[2025-07-07] MEDS: alum-mag-hydroxide-sime 30 mL UDC PO (14:26)
[2025-07-08 03:49] LABS: Hematocrit 42.0 % (37-53); Hemoglobin 14.10 g/dL (11.27-16.99); Mean Corpuscular HGB Conc 33.6 g/dL (30-55); Mean Corpuscular Hemoglobin 29.1 pg (27-33); Mean Corpuscular Volume 86.6 fl (82-101); Nucleated Red Blood Cells % 0 %; Platelet Count 219 10^3/cmm (157-399); Red Blood Count 4.85 10^6/uL (3.85-5.65); White Blood Count 6.70 10^3/uL (3.29-11.43)
[2025-07-08 04:15] LABS: Anion Gap 15.7 (5-19); Blood Urea Nitrogen 11 mg/dL (8-23); Calcium 8.8 mg/dL (8.5-10.5); Carbon Dioxide 25 mmol/L (22-29); Chloride 101 mmol/L (98-107); Creatinine Clr Calc Pharmacy 122.2628; Glucose 249 mg/dL (65-115); Osmolality Calculated 294 mOsm/kg (285-295); Potassium 3.7 mmol/L (3.5-5.1); Sodium 138 mmol/L (136-145)
[2025-07-08 07:48] VITALS: BP 145/92; PULSE 82; RESP 18; TEMP 36.6; O2SAT 95
--- NOTE | 2025-07-08 08:47 | P.DS_ITS ---
<Statement entered by Oscar Santana M.D - 07/10/25 09:42> Patient was cared for in conjunction with an advanced practice practitioner.? I reviewed the chart and all pertinent data including imaging, telemetry, and laboratory results.? I discussed the patient in detail with the advanced practice practitioner.? Please see?their note for discharge summary, testing results and agreed upon plan of care for the patient with the following change Mynx was not deployed. Hemostasis achieved with manual hold. Discharge Providers Date of Admission: 07/07/25 Date of Discharge: July 08, 2025 Attending Provider at Admission: Oscar Santana M.D Attending Provider at Discharge: Oscar Santana M.D Primary Care Provider: Timoteo Farrar MD Reason for Visit Reason for Visit: I25.10 Brief History: 64-year-old man with past medical histor y of hypertension, diabetes, hyperlipidemia who was recently seen in the hospital for non-ST elevation CA. Coronary angiogram demonstrated severe stenosis of proximal LAD and mid circumflex artery that underwent successful revascularization with 2 stents. LAD has apical disease. RCA has proximal stenosis and diffuse distal disease. He is doing well. Has noticed occasional sharp chest discomfort and dyspnea on exertion. Echo had showed normal LV systolic function. Hospital Course Hospital Course He was brought for staged PCI of the RCA, confirmed with IVUS as well as appearance of possible thrombus. Vessel was treated with JIGNESH x 1, noted distal diffuse disease and distal embolization with slow flow. He was kept on Aggrastat for 4 hours after intervention. He did well yesterday evening, had M ynx to the right femoral cath site. No chest pain or shortness of breath either last night or this morning. Blood pressure has been well-controlled, creatinine 0.8 today. Will discharge him today on aspirin, Plavix, lisinopril 20 mg daily, metoprolol succinate 25 mg daily, and atorvastatin 80 mg daily. Follow-up with Dr. Santana in 1 month. Physical Exam Const: COMMON NORMALS: no acute distress and patient oriented x3 GENERAL APPEARANCE: cooperative ORIENTATION/CONSCIOUSNESS: Yes awake, Yes oriented to person, Yes oriented to place and Yes oriented to time Chest: COMMONS NORMALS: normal inspection of the chest and normal palpation of entire chest wall CHEST: Yes Symmetrical chest wall rise Resp: COMMON NORMALS: normal respiratory effort, No retractions, No use of accessory muscles and clear to auscultation bilaterally AUSCULTATION: clear to auscultation bilaterally Cardio: COMMON NORMALS: regular rate, regular rhythm, S1 normal heart sound present, S2 normal heart sound present, No gallops present (Cardio), No clicks present (Cardio), No murmurs present (Cardio) and No rub (Cardio) RATE: regular rate RHYTHM: regular rhythm HEART SOUNDS: S1 normal heart sound present and S2 normal heart sound present PERIPHERAL PULSES: radial pulses present positive right 2+ and femoral pulses present positive right 2+ Neuro: COMMON NORMALS: patient oriented x3 and moves all extremities SENSORIUM/ORIENTATION: Yes oriented to person, Yes oriented to place and Yes oriented to time Skin: WOUNDS: Yes surgical site (no hematoma palpable) Details: no odor Discharge Data Studies Completed and Pending Pending at discharge Category Date Time Status RN MEDICATION request for service Routine Exams 07/07/25 06:00 Taken Laboratory Results WBC 6.70 10^3/uL (3.29-11.43) 07/08/25 03:28 RBC 4.85 10^6/uL (3.85-5.65) 07/08/25 03:28 Hgb 14.10 g/dL (11.27-16.99) 07/08/25 03:28 Hct 42.0 % (37-53) 07/08/25 03:28 MCV 86.6 fl (82-101) 07/08/25 03:28 MCH 29.1 pg (27-33) 07/08/25 03:28 MCHC 33.6 g/dL (30-55) 07/08/25 03:28 RDW 14.0 % (12.1-15.1) 07/08/25 03:28 Plt Count 219 10^3/cmm (157-399) 07/08/25 03:28 MPV 10.1 fL (7.4-10.4) 07/08/25 03:28 Neut % (Auto) 64.8 % 07/08/25 03:28 Lymph % (Auto) 22.4 % 07/08/25 03:28 [place] % (Auto) 10.3 % 07/08/25 03:28 Eos % (Auto) 1.8 % 07/08/25 03:28 Baso % (Auto) 0.4 % 07/08/25 03:28 Neut # (Auto) 4.34 10^3/uL (1.8-7.7) 07/08/25 03:28 Lymph # (Auto) 1.5 10^3/uL (0.8-4.8) 07/08/25 03:28 [place] # (Auto) 0.7 10^3/uL (0.2-0.9) 07/08/25 03:28 Eos # (Auto) 0.1 10^3/uL (0.0-0.8) 07/08/25 03:28 Baso # (Auto) 0.0 10^3/uL (0.0-0.1) 07/08/25 03:28 Nucleated RBC % (auto) 0 % 07/08/25 03:28 Nucleated RBCs # 0.0 /100WBC 07/08/25 03:28 APTT 44.3 SECONDS (23.9-36.7) H 07/07/25 12:19 Sodium 138 mmol/L (136-145) 07/08/25 03:28 Potassium 3.7 mmol/L (3.5-5.1) 07/08/25 03:28 Chloride 101 mmol/L (98-107) 07/08/25 03:28 Carbon Dioxide 25 mmol/L (22-29) 07/08/25 03:28 Anion Gap 15.7 (5-19) 07/08/25 03:28 BUN 11 mg/dL (8-23) 07/08/25 03:28 Creatinine 0.8 mg/dL (0.7-1.2) 07/08/25 03:28 GFR Calculation 98.0 mL/min (90-130) 07/08/25 03:28 Glucose 249 mg/dL (65-115) H 07/08/25 03:28 Calculated Osmolality 294 mOsm/kg (285-295) 07/08/25 03:28 Calcium 8.8 mg/dL (8.5-10.5) 07/08/25 03:28 Vitals Last Vital Signs Temp 97.9 F 07/08/25 07:48 Pulse 82 07/08/25 07:48 Resp 18 07/08/25 07:48 BP 145/92 07/08/25 07:48 Pulse Ox 95 07/08/25 07:48 O2 Del Method Room Air 07/07/25 06:31 Discharge Plan Discharge Patient Disposition: Home Prescriptions: Continued (DME) blood-glucose meter Misc See Rx Instructions .MEDSUPPLY Qty: 1 0RF Rx Instructions: Use as directed for checking blood sugar pioglitazone [Actos] 15 mg tablet 15 mg PO DAILY Qty: 30 11RF nitroglycerin 0.4 mg tablet, sublingual 0.4 mg sublingual Q5M PRN (Reason: chest pain) Qty: 20 11RF Rx Instructions: do not exceed 3 doses per episode pantoprazole 20 mg tablet,delayed release (DR/EC) 20 mg PO DAILY Qty: 90 3RF clopidogrel 75 mg tablet 75 mg PO DAILY Qty: 30 11RF atorvastatin 80 mg tablet 80 mg PO BEDTIME Qty: 30 11RF lisinopril 20 mg tablet 20 mg PO DAILY Qty: 90 3RF metoprolol succinate 25 mg tablet extended release 24 hr 25 mg PO DAILY Qty: 30 11RF riboflavin (vitamin B2) 400 mg tablet 400 mg PO DAILY Qty: 30 11RF Rx Instructions: to prevent migraines (DME) OneTouch Ultra Test Strip See Rx Instructions .ROUTE .COMPLEX Qty: 200 12RF Dose Instruction: USE DIRECTED with glucometer TO check blood sugar Rx Instructions: USE DIRECTED with glucometer TO check blood sugar fluticasone propionate 50 mcg/actuation spray,suspension See Rx Instructions .ROUTE .COMPLEX Qty: 16 11RF Dose Instruction: USE 2 SPRAYS IN EACH NOSTRIL EVERY DAY NEEDED FOR sinus mass FOR 12 MONTHS Rx Instructions: USE 2 SPRAYS IN EACH NOSTRIL EVERY DAY NEEDED FOR sinus mass FOR 12 MONTHS allopurinol 100 mg tablet 100 mg PO QPM metformin 1,000 mg tablet 1,000 mg PO BID glimepiride 4 mg tablet 4 mg PO BID montelukast 10 mg tablet 10 mg PO DAILY Benadryl Allergy 50 mg Tablet 50 mg PO Q6H PRN (Reason: sleep ) fexofenadine 180 mg Tablet 180 mg PO DAILY cholecalciferol (vitamin D3) [Vitamin D3] 125 mcg (5,000 unit) Tablet 125 mcg PO DAILY mecobalamin (vitamin B12) [B12 Active] 1,000 mcg Tablet,Chewable 1,000 mcg PO DAILY aspirin [Adult Aspirin Regimen] 81 mg tablet,delayed release (DR/EC) 81 mg PO DAILY Discharge Order = DC NOW: Discharge Order (Routine); Ordered 07/08/25 Ordered By: Jessica Berumen Referrals: Blake Springer MD [Physician, Cardiology] - 08/05/25 2:45 pm Timoteo Farrar MD [Primary Care Provider, Family Practice] - 07/15/25 8:40 am Diet: Cardiac Activity: Increase activity as tolerated Patient Instructions: Aspirin (By mouth), Clopidogrel (By mouth) (Plavix), Coronary Artery Disease (DC), Coronary Angioplasty (DC), Chest Pain Stoplight, Post Angiogram Home Care Instructions Activity Restrictions/Additional Instructions: No lifting over 5 pounds for 4 days.? Print Language: Occitan Discharge Date/Time: 07/08/25 09:45 Discharge Attestations Time Spent in Discharge Care*: less than 30 min Quality Metrics Clinical Quality Measures [ No reported AMI, CVA or VTE this stay] Coding Level of Care Code Acute Code for Chg Fwshahzad
--- NOTE | 2025-07-08 09:57 | PC.NURSE ---
Patient discharged to home. Instruction provided regarding follow up needs, site care and no medication changes. Patient and spouse verbalized complete understanding. Left groin remains c,d,i without s/s of bleeding or hematoma formation observed. Patient denies pain or needs. No distress observed. Patient taken by wheelchair to private vehicle with family at side.
== END 2025-07-08 09:45 | disposition home or self-care (01) ==
LOC: CCL 06:04 → CSU 09:25
PROVIDERS: Nurse Practitioner Family; PCP Family Medicine; Visit Provider Internal Medicine
DX: I25.10 Atherosclerotic heart disease of native coronary artery without angina pectoris (principal); I10 Essential (primary) hypertension; E78.5 Hyperlipidemia, unspecified; I25.2 Old myocardial infarction; E66.9 Obesity, unspecified; Z68.37 Body mass index [BMI] 37.0-37.9, adult; K21.9 Gastro-esophageal reflux disease without esophagitis; Z79.82 Long term (current) use of aspirin; Z79.84 Long term (current) use of oral hypoglycemic drugs; E11.9 Type 2 diabetes mellitus without complications
CPT/HCPCS: 36415; 80048; 85025; 85347; 85730; 92978; 93005; 93571; 99152; 99153; C1725; C1753; C1760; C1769; C1874; C1887; C1894; C9600; G0269; J1644; J2250; J3010; J3490; J7030; J9999; Q0163; Q9967

== ENCOUNTER 2025-07-31 18:18 | Inpatient (IN) | payer OTHER, SELFPAY ==
[2025-07-31] VITALS (34 sets, daily range): BP systolic 97–208; BP diastolic 63–124; PULSE 72–82; RESP 8–20; TEMP 36.7; O2SAT 95–99; BMI 31.6
--- NOTE | 2025-07-31 18:27 | CTR_ITS ---
PROCEDURE INFORMATION: Exam: CT Head Without Contrast Exam date and time: 07/31/2025 6:29 PM Age: 64 years old Clinical indication: Stroke-like symptoms; Right upper extremity numbness/paresthesia; Additional info: Symptoms of acute stroke. states approx 20-30 mins ago PT C/O right arm numbness. PT is slow to respond, PT can not find his words TECHNIQUE: Imaging protocol: Computed tomography of the head without contrast. Radiation optimization: All CT scans at this facility use at least one of these dose optimization techniques: automated exposure control; mA and/or kV adjustment per patient size (includes targeted exams where dose is matched to clinical indication); or iterative reconstruction. Other technique: STROKE PROTOCOL was implemented. COMPARISON: CT head thrombolytic [id number] 06/15/2025 7:52 PM RADIATION DOSE METRICS: Total DLP (mGy-cm): 1379.88 FINDINGS: Brain: Normal. No hemorrhage. Unremarkable white matter. No mass effect. Cerebral ventricles: No ventriculomegaly. Paranasal sinuses: Mild left sphenoid sinus disease. Mastoid air cells: Visualized mastoid air cells are well aerated. Bones: Unremarkable. No acute fracture. Soft tissues: Unremarkable. Other findings: Severe calcified intracranial atherosclerotic vessel disease. CT/CT head thrombolytic [id number] IMPRESSION: 1. Mild left sphenoid sinus disease. 2. No acute intracranial findings. ASSESSMENT: ASPECTS ([place] Stroke Program Early CT Score) is 10.
--- NOTE | 2025-07-31 18:27 | ECG_ITS ---
[facility] Test Date: 2022-01-16 Pat Name: Dani Coleman Department: Room: Gender: Male Nursing Unit Clerk: : 1960 Requested By: Mary Ann Pierson Order Number: [id number] Sharp MD: Doc Nicole M.D. Measurements Intervals [place] Rate: 79 P: 34 MO: 154 QRS: -13 QRSD: 83 T: 270 QT: 394 QTc: 452 Interpretive Statements SINUS RHYTHM POSSIBLE LEFT ATRIAL ENLARGEMENT [-0.1mV P-WAVE IN V1/V2] MODERATE T-WAVE ABNORMALITY, CONSIDER LATERAL ISCHEMIA [-0.1+ mV T-WAVE IN I/aVL/V5/V6] MODERATE T-WAVE ABNORMALITY, CONSIDER INFERIOR ISCHEMIA [-0.1+ mV T-WAVE IN II/aVF] No previous ECG available for comparison Electronically Signed On 08-01-2025 15:27:04 CDT by Doc Nicole M.D. [email or web address]
--- NOTE | 2025-07-31 18:31 | W.ED.NEUROSD ---
HPI - Neuro Symptoms/Deficit General: Chief Complaint: Neuro Symptoms/Deficit Stated Complaint: Numbness on face and neck Time Seen by Provider: 07/31/25 18:26 History of Present Illness: 64-year-old man with a history of hypertension, diabetes, hyperlipidemia and coronary artery disease recently diagnosed when he had a non-STEMI and had multiple stents placed. Last known well time was about 30 minutes ago. reports his speech appears slurred. Does not have any facial droop. He is able to answer questions appropriately. He also complains of numbness in his right arm and does not feel right. 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 Related Data Home Medications ?Medication ?Instructions ?Recorded ?Confirmed aspirin 81 mg tablet,delayed 81 mg PO DAILY 06/16/25 07/15/25 release (Adult Aspirin Regimen) cholecalciferol (vitamin D3) 125 125 mcg PO DAILY 06/16/25 07/15/25 mcg (5,000 unit) tablet (Vitamin D3) diphenhydramine HCl 50 mg tablet 50 mg PO Q6H PRN sleep 06/16/25 07/15/25 (Benadryl Allergy) fexofenadine 180 mg tablet 180 mg PO DAILY 06/16/25 07/15/25 mecobalamin (vitamin B12) 1,000 1,000 mcg PO DAILY 06/16/25 07/15/25 mcg chewable tablet (B12 Active) Previous Rx's ?Medication ?Instructions ?Recorded blood-glucose meter #1 ea 10/19/23 blood sugar diagnostic (OneTouch #200 strips 10/24/24 Ultra Test strips) fluticasone propionate 50 See Rx Instructions .Route 01/20/25 mcg/actuation nasal .COMPLEX #16 grams spray,suspension nitroglycerin 0.4 mg sublingual 0.4 mg sublingual Q5M PRN chest 06/12/25 tablet pain #20 tabs allopurinol 100 mg tablet 100 mg PO QPM #90 tabs 07/15/25 atorvastatin 80 mg tablet 80 mg PO BEDTIME #90 tabs 07/15/25 clopidogrel 75 mg tablet 75 mg PO DAILY #90 tabs 07/15/25 glimepiride 4 mg tablet 4 mg PO BID #180 tabs 07/15/25 lisinopril 20 mg tablet 20 mg PO DAILY #90 tabs 07/15/25 metformin 1,000 mg tablet 1,000 mg PO BID #180 tabs 07/15/25 metoprolol succinate 25 mg 25 mg PO DAILY #90 tabs 07/15/25 tablet,extended release 24 hr montelukast 10 mg tablet 10 mg PO DAILY #90 tabs 07/15/25 pantoprazole 20 mg tablet,delayed 20 mg PO DAILY #90 tabs 07/15/25 release pioglitazone 15 mg tablet (Actos) 15 mg PO DAILY #90 tabs 07/15/25 riboflavin (vitamin B2) 400 mg 400 mg PO DAILY opthalmic migraine 07/15/25 tablet #90 tabs Allergies Allergy/AdvReac Type Severity Reaction Status Date / Time tetracycline AdvReac Intermediate GI Verified 07/07/25 06:40 [facility] PFSH: Medical History (Updated 07/31/25 @ 19:14 by Keyla Daugherty MD) Coronary artery disease Bacteriuria with pyuria Hyperlipidemia Hypertension Diabetes mellitus Gout Social History Smoking and tobacco/nicotine status: never used tobacco/nicotine Physical Exam Const: OTHER: General: Alert, no acute distress. Skin: Warm, dry. Head: Normocephalic, atraumatic. Neck: Supple, trachea midline. Eye: Extraocular movements are intact. Ears, nose, mouth and throat: mucosa moist. Cardiovascular: Regular, Normal peripheral perfusion. Respiratory: Lungs are clear to auscultation, respirations are non-labored, breath sounds are equal, Symmetrical chest wall expansion. Gastrointestinal: Soft, Nontender, Non distended Musculoskeletal: Normal ROM, no deformity. Neurological: Alert and oriented, No focal neurological deficit observed. reports his speech sounds slurred. Psychiatric: Cooperative, appropriate mood & affect. 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 He is . I reviewed the patient's medical record. 64-year-old man with a history of hypertension, diabetes, hyperlipidemia and coronary artery disease recently diagnosed when he had a non-STEMI and had multiple stents placed. I reviewed his discharge summary from 07/08/2025. I double checked patient's records and he is on Plavix and aspirin only. No other blood thinners. I reviewed the patient's current home meds Patient is on Plavix and aspirin but no other anticoagulation. He is on glimepiride. Lisinopril. Alternate historians: gave history and confirmed last known well time and that his speech appears slurred and he does not seem himself. Differential diagnosis for patient with focal neurologic deficit(s) includes but not limited to and based on the above HPI, review of systems and physical exam: ischemic stroke, hemorrhagic stroke and embolic stroke secondary to atrial fibrillation), TIA, Lowe's palsey, metabolic encephalopathy with previous stroke. Orders placed to evaluate differential diagnosis based on the above differential, HPI and physical exam NIH Stroke Scale/Score (NIHSS) from [place] on 07/31/2025 All calculations should be rechecked by clinician prior to use RESULT SUMMARY: 5 points NIH Stroke Scale INPUTS: 1A: Level of consciousness ?> 0 = Alert; keenly responsive 1B: Ask month and age ?> 0 = Both questions right 1C: 'Blink eyes' & 'squeeze hands' ?> 0 = Performs both tasks 2: Horizontal extraocular movements ?> 0 = Normal 3: Visual giron ?> 2 = Complete hemianopia 4: Facial palsy ?> 0 = Normal symmetry 5A: Left arm motor drift ?> 0 = No drift for 10 seconds 5B: Right arm motor drift ?> 0 = No drift for 10 seconds 6A: Left leg motor drift ?> 0 = No drift for 5 seconds 6B: Right leg motor drift ?> 0 = No drift for 5 seconds 7: Limb Ataxia ?> 0 = No ataxia 8: Sensation ?> 1 = Mild-moderate loss: less sharp/more dull 9: Language/aphasia ?> 1 = Mild-moderate aphasia: some obvious changes, without significant limitation 10: Dysarthria ?> 1 = Mild-moderate dysarthria: slurring but can be understood 11: Extinction/inattention ?> 0 = No abnormality Timing of events: 1800: Approximate last known well time. witnessed the symptoms start. 1818: Patient arrival 1830: Patient was brought back and I examined 1844: Dr. Daugherty evaluated the patient in room 1849: Tenecteplase given 1929: Reexamination: says the patient's speech is getting worse. CT head: No acute intracranial process. No intracranial hemorrhage, no evidence of infarct. No evidence of acute fracture. This was reviewed and interpreted by myself the emergency room physician. I also reviewed the radiology report. EKG: Time 1835. Rate 79. Normal sinus rhythm, No ST-T changes, no ectopy, normal CT & QRS intervals, This was reviewed and interpreted by myself the ER physician at 1840 Lab Review: Laboratory results were reviewed and interpreted by myself the emergency room physician. No anemia. No leukocytosis. No renal failure. Liver enzymes are normal. Assessment of risk: - Level of risk high - Was hospitalization considered? Yes. Patient was given tenecteplase and is being admitted to the ICU. Reexamination: Patient has had no oxygen requirements and does not have any new focal motor deficits but feels like his speech is not improving after tenecteplase. Consultation: As above I spoke with Dr. Daugherty who evaluated the patient in the emergency room and she recommended tenecteplase. She does not feel a CTA is needed but the hospitalist insists and so we will do it prior to transfer to the intensive care unit. Consultation: I spoke with Dr. Rojas who is on-call for the hospitalist service. She requests CTA prior to admission. Assessment and plan: CVA Visual field deficits Slurred speech ?Tenecteplase in the emergency room. -I discussed the patient with the hospitalist on-call who is admitting the patient. - Discussed findings and plan with patient. Answered any questions. - All laboratory values were reviewed and interpreted personally by myself, the ER physician - All imaging was reviewed and interpreted personally by myself, the ER physician. - Evaluation and treatment of this problem were appropriate in the emergency setting Critical Care: -I spent a total of 36 minutes of critical care time managing the patient, independent of any other practitioner. -The time involved in the performance of separately reportable procedures was not counted towards critical care time. Lab Data 07/31/25 18:41 07/31/25 18:[address] 07/31/25 18:27 IMPRESSION: 1. Mild left sphenoid sinus disease. 2. No acute intracranial findings. ASSESSMENT: ASPECTS ([place] Stroke Program Early CT Score) is 10. ADDENDUM: 07/31/251844 THIS REPORT CONTAINS FINDINGS THAT MAY BE CRITICAL TO PATIENT CARE. The findings were verbally communicated via telephone conference with CON BETTS at 6:43 PM CDT on 07/31/2025. The findings were acknowledged and understood. Laboratory Results WBC 7.25 10^3/uL (3.29-11.43) 07/31/25 18:41 RBC 5.45 10^6/uL (3.85-5.65) 07/31/25 18:41 Hgb 15.70 g/dL (11.27-16.99) 07/31/25 18:41 Hct 46.8 % (37-53) 07/31/25 18:41 MCV 85.9 fl (82-101) 07/31/25 18:41 MCH 28.8 pg (27-33) 07/31/25 18:41 MCHC 33.5 g/dL (30-55) 07/31/25 18:41 RDW 14.3 % (12.1-15.1) 07/31/25 18:41 Plt Count 240 10^3/cmm (157-399) 07/31/25 18:41 MPV 9.7 fL (7.4-10.4) 07/31/25 18:41 Neut % (Auto) 68.5 % 07/31/25 18:41 Lymph % (Auto) 20.3 % 07/31/25 18:41 [place] % (Auto) 9.0 % 07/31/25 18:41 Eos % (Auto) 1.5 % 07/31/25 18:41 Baso % (Auto) 0.4 % 07/31/25 18:41 Neut # (Auto) 4.97 10^3/uL (1.8-7.7) 07/31/25 18:41 Lymph # (Auto) 1.5 10^3/uL (0.8-4.8) 07/31/25 18:41 [place] # (Auto) 0.7 10^3/uL (0.2-0.9) 07/31/25 18:41 Eos # (Auto) 0.1 10^3/uL (0.0-0.8) 07/31/25 18:41 Baso # (Auto) 0.0 10^3/uL (0.0-0.1) 07/31/25 18:41 Nucleated RBC % (auto) 0 % 07/31/25 18:41 Nucleated RBCs # 0.0 /100WBC 07/31/25 18:41 PT 14.20 SECONDS (12.1-14.9) 07/31/25 18:41 INR 1.02 (0.8-1.2) 07/31/25 18:41 APTT 26.2 SECONDS (23.9-36.7) 07/31/25 18:41 Sodium 141 mmol/L (136-145) 07/31/25 18:41 Potassium 4.0 mmol/L (3.5-5.1) 07/31/25 18:41 Chloride 104 mmol/L (98-107) 07/31/25 18:41 Carbon Dioxide 24 mmol/L (22-29) 07/31/25 18:41 Anion Gap 17.0 (5-19) 07/31/25 18:41 BUN 17 mg/dL (8-23) 07/31/25 18:41 Creatinine 0.9 mg/dL (0.7-1.2) 07/31/25 18:41 GFR Calculation 85.5 mL/min (90-130) L 07/31/25 18:41 Glucose 109 mg/dL (65-115) 07/31/25 18:41 POC Glucose 106 mg/dL (70-110) 07/31/25 18:38 Calculated Osmolality 294 mOsm/kg (285-295) 07/31/25 18:41 Calcium 9.3 mg/dL (8.5-10.5) 07/31/25 18:41 Total Bilirubin 0.5 mg/dL (0.15-1.2) 07/31/25 18:41 AST 29 U/L (0-40) 07/31/25 18:41 ALT 24 U/L (0-41) 07/31/25 18:41 Alkaline Phosphatase 85 U/L (40-130) 07/31/25 18:41 Total Protein 7.8 g/dL (6.6-8.7) 07/31/25 18:41 Albumin 4.1 g/dL (3.5-5.2) 07/31/25 18:41 Globulin 3.7 g/dL (1.3-4.6) 07/31/25 18:41 All radiology interpretation(s) finalized by discharge Discharge Plan Discharge Condition: Stable Prescriptions: No Action (DME) blood-glucose meter Misc See Rx Instructions .MEDSUPPLY Qty: 1 0RF Rx Instructions: Use as directed for checking blood sugar nitroglycerin 0.4 mg tablet, sublingual 0.4 mg sublingual Q5M PRN (Reason: chest pain) Qty: 20 11RF Rx Instructions: do not exceed 3 doses per episode allopurinol 100 mg tablet 100 mg PO QPM Qty: 90 3RF atorvastatin 80 mg tablet 80 mg PO BEDTIME Qty: 90 11RF clopidogrel 75 mg tablet 75 mg PO DAILY Qty: 90 11RF glimepiride 4 mg tablet 4 mg PO BID Qty: 180 3RF lisinopril 20 mg tablet 20 mg PO DAILY Qty: 90 3RF metformin 1,000 mg tablet 1,000 mg PO BID Qty: 180 3RF metoprolol succinate 25 mg tablet extended release 24 hr 25 mg PO DAILY Qty: 90 11RF pantoprazole 20 mg tablet,delayed release (DR/EC) 20 mg PO DAILY Qty: 90 3RF pioglitazone [Actos] 15 mg tablet 15 mg PO DAILY Qty: 90 11RF riboflavin (vitamin B2) 400 mg tablet 400 mg PO DAILY Qty: 90 11RF Rx Instructions: to prevent migraines montelukast 10 mg tablet 10 mg PO DAILY Qty: 90 3RF (DME) OneTouch Ultra Test Strip See Rx Instructions .ROUTE .COMPLEX Qty: 200 12RF Dose Instruction: USE DIRECTED with glucometer TO check blood sugar Rx Instructions: USE DIRECTED with glucometer TO check blood sugar fluticasone propionate 50 mcg/actuation spray,suspension See Rx Instructions .ROUTE .COMPLEX Qty: 16 11RF Dose Instruction: USE 2 SPRAYS IN EACH NOSTRIL EVERY DAY NEEDED FOR sinus mass FOR 12 MONTHS Rx Instructions: USE 2 SPRAYS IN EACH NOSTRIL EVERY DAY NEEDED FOR sinus mass FOR 12 MONTHS Benadryl Allergy 50 mg Tablet 50 mg PO Q6H PRN (Reason: sleep ) fexofenadine 180 mg Tablet 180 mg PO DAILY cholecalciferol (vitamin D3) [Vitamin D3] 125 mcg (5,000 unit) Tablet 125 mcg PO DAILY mecobalamin (vitamin B12) [B12 Active] 1,000 mcg Tablet,Chewable 1,000 mcg PO DAILY aspirin [Adult Aspirin Regimen] 81 mg tablet,delayed release (DR/EC) 81 mg PO DAILY Referrals: Timoteo Farrar MD [Primary Care Provider, Family Practice] Print Language: Burkinan Coding Level of Care Code ED Special Ed Assistant for Alonzo Espinal
[2025-07-31] MEDS: tenecteplase 50mg Kit (STROKE) 25 MG IVP (18:48)
[2025-07-31 18:55] LABS: Hematocrit 46.8 % (37-53); Hemoglobin 15.70 g/dL (11.27-16.99); Mean Corpuscular HGB Conc 33.5 g/dL (30-55); Mean Corpuscular Hemoglobin 28.8 pg (27-33); Mean Corpuscular Volume 85.9 fl (82-101); Nucleated Red Blood Cells % 0 %; Platelet Count 240 10^3/cmm (157-399); Red Blood Count 5.45 10^6/uL (3.85-5.65); White Blood Count 7.25 10^3/uL (3.29-11.43)
--- NOTE | 2025-07-31 19:00 | P.PNCC_ITS ---
Stroke Alert Activation ED Arrival Date: 07/31/25 ED Arrival Time: 18:27 ED Physican at Bedside: 18:31 Last Known Normal/at Baseline: < 1 hour ago Other Last Known Well Infomation: The patient and his are getting ready for a Bible study when the patient suddenly complained of numbness in both hands. He was with his and they were getting dressed and he was making dinner. A short time later he complained that both arms had become numb. He requested to come to the hospital and he thought he was having a heart attack. He took a nitro. On arrival here a stroke alert was called because the patient was complaining of numbness and his speech was slurred. On initial evaluation he was not confused but within a short time after arrival his confusion became apparent and Dr. Newsome discovered him to have a right visual field cut. His yyzjz-yr-rsmq blood sugar was 106. His blood pressure was not severely elevated at 142/92. The patient participated in discussion although his cognitive function was significantly impaired but his was capable of acknowledging that she recognized he was having a severe stroke and that he should receive TNK as there was no contraindication. Dr. Jasso and I reviewed his CAT scan of the head which was also reviewed by radiology. There was a brief pause because the patient said he was on a blood thinner but we were able to pull up his records and discovered it was clopidogrel. TNK was given at 1849. The patient and his were informed of risks and benefits and the plan for treatment with ICU admission. Stroke Alert Activated by: Geri Elliott Stroke Alert Activation Time: 18:25 Stroke MD @ Bedside Time: 18:35 NIH Stroke Scale Time: 18:40 NIH stroke score NIHSS: Level Of Consciousness - 1a: 2 Level Of Consciousness Questions - 1b: Neither Correct Level Of Consciousness Commands - 1c: Neither Correct Best Gaze - 2: Normal Visual Townsend - 3: Partial Hemianopia Facial Palsy - 4: Normal Motor Arm Right - 5: No Drift Motor Arm Left - 5: No Drift Motor Leg Right - 6: No Drift Motor Leg Left - 6: No Drift Limb Ataxia - 7: Absent Sensory - 8: Mild To Moderate Loss Best Language - 9: Mild/Moderate Aphasia Dysarthia - 10: Mild/Moderate Dysarthia Extinction And Inattention - 11: 0 Score: Total Score: 10 Stroke Alert Data/Treatment Time to CT of Head: 18:27 CT Results Time: 18:43 CT Impression: normal Stroke Risk Factors: coronary artery disease, hypertension, previous RI and diabetes mellitus tPA Started Time: tPA Started - Time: 18:49 tPA Admin Prior to Arrival: No Patient & Family Educated on: Cause of Stroke, Risk Factors, Treament Plan and tPA Risks/Benefits Standardized Stroke Orders Used: Yes Critical Care Time Critical Care Time: 30 - 74 mins A&P Assessment and plan 1. Acute stroke due to ischemia: 64-year-old man who just recently had placement of a stent who presents with a right visual field cut, right sided numbness and receptive aphasia. This may be a thalamic stroke with transcortical aphasia, posterior branch left middle cerebral artery. In either case the treatment includes aspirin, Plavix and a atorvastatin. He had a recent Doppler ultrasound that showed less than 50% stenosis in the carotid arteries but will need to have CT angiogram to better define his anatomy. Telemetry to rule out atrial fibrillation particularly in view of his recent cardiac event. He will need ICU admission since he received TNK and a follow-up CT head in the morning. Consider an outpatient MRI following discharge and follow-up with neurology as an outpatient either with ky or with Rogerio Garcia. 2. Hypertension: 3. Coronary artery disease: 4. Diabetes mellitus: PDMP PDMP Reviewed: Not Reviewed Coding Level of Care Code Acute Code for [facility] Diagnoses Acute stroke due to ischemia I63.9 Hypertension I10 Coronary artery disease I25.10 Diabetes mellitus E11.9
[2025-07-31 19:10] LABS: INR 1.02 (0.8-1.2); Partial Thromboplastin Time 26.2 SECONDS (23.9-36.7); Prothrombin Time 14.20 SECONDS (12.1-14.9)
[2025-07-31 19:16] LABS: Alanine Aminotransferase 24 U/L (0-41); Albumin Level 4.1 g/dL (3.5-5.2); Alkaline Phosphatase 85 U/L (40-130); Anion Gap 17.0 (5-19); Aspartate Amino Transferase 29 U/L (0-40); Blood Urea Nitrogen 17 mg/dL (8-23); Calcium 9.3 mg/dL (8.5-10.5); Carbon Dioxide 24 mmol/L (22-29); Chloride 104 mmol/L (98-107); Creatinine Clr Calc Pharmacy 105.1835; Globulin 3.7 g/dL (1.3-4.6); Glucose 109 mg/dL (65-115); Osmolality Calculated 294 mOsm/kg (285-295); Potassium 4.0 mmol/L (3.5-5.1); Sodium 141 mmol/L (136-145); Total Protein 7.8 g/dL (6.6-8.7)
--- NOTE | 2025-07-31 19:42 | CTR_ITS ---
PROCEDURE INFORMATION: Exam: CTA Head With Contrast, Arteriography Exam date and time: 07/31/2025 7:53 PM Age: 64 years old Clinical indication: Numbness; Additional info: Possible stroke TECHNIQUE: Imaging protocol: Computed tomographic angiography of the head with contrast. Exam focused on the arteries. 3D rendering (Not supervised by radiologist): MIP and/or 3D reconstructed images were created by the technologist. Radiation optimization: All CT scans at this facility use at least one of these dose optimization techniques: automated exposure control; mA and/or kV adjustment per patient size (includes targeted exams where dose is matched to clinical indication); or iterative reconstruction. Contrast material: OMNI 350; Contrast volume: 100 ml; Contrast route: INTRAVENOUS (IV); COMPARISON: CT head thrombolytic [id number] 07/31/2025 6:29 PM RADIATION DOSE METRICS: Total DLP (mGy-cm): 536.75 FINDINGS: ANTERIOR CIRCULATION: Right internal carotid artery: Calcified plaque in the right cavernous ICA without significant stenosis. Right middle cerebral artery: No occlusion or significant stenosis. No aneurysm. Right anterior cerebral artery: No occlusion or significant stenosis. No aneurysm. Left internal carotid artery: Calcified plaque in the left cavernous ICA without significant stenosis. Left middle cerebral artery: No occlusion or significant stenosis. No aneurysm. Left anterior cerebral artery: No occlusion or significant stenosis. No aneurysm. POSTERIOR CIRCULATION: Right vertebral artery: No occlusion or significant stenosis. No aneurysm. Left vertebral artery: No occlusion or significant stenosis. No aneurysm. Basilar artery: No occlusion or significant stenosis. No aneurysm. Right posterior cerebral artery: No occlusion or significant stenosis. No aneurysm. Left posterior cerebral artery: Direct origin of the left posterior cerebral artery from the anterior circulation. Brain: No definite mass, mass effect, or midline shift. Cerebral ventricles: No ventriculomegaly. Paranasal sinuses: Fwcs-sg-vmcuyohg left sphenoid sinus disease. Bones/joints: Unremarkable. No acute fracture. Soft tissues: Unremarkable. Other findings: Codominant vertebral arteries. PROCEDURE INFORMATION: Exam: CTA Neck With Contrast Exam date and time: 07/31/2025 7:53 PM Age: 64 years old Clinical indication: Numbness; Additional info: Possible stroke TECHNIQUE: Imaging protocol: Computed tomographic angiography of the neck with contrast. Exam focused on the cervical segments of the vasculature. 3D rendering (Not supervised by radiologist): MIP and/or 3D reconstructed images were created by the technologist. Radiation optimization: All CT scans at this facility use at least one of these dose optimization techniques: automated exposure control; mA and/or kV adjustment per patient size (includes targeted exams where dose is matched to clinical indication); or iterative reconstruction. Contrast material: OMNI 350; Contrast volume: 100 ml; Contrast route: INTRAVENOUS (IV); COMPARISON: CT head thrombolytic [id number] 07/31/2025 6:29 PM RADIATION DOSE METRICS: Total DLP (mGy-cm): 536.75 FINDINGS: Right common carotid artery: Right carotid bifurcation calcified plaque. Right internal carotid artery: No stenosis of the extracranial segment. No dissection or occlusion. Right external carotid artery: No occlusion or stenosis of the origin. Left common carotid artery: Normal variant common origin of the left common carotid artery and innominate artery consistent with bovine arch. Left internal carotid artery: No stenosis of the extracranial segment. No dissection or occlusion. Left external carotid artery: No occlusion or stenosis of the origin. Right vertebral artery: No stenosis. No dissection or occlusion. Left vertebral artery: No stenosis. No dissection or occlusion. Aorta: Calcification of the thoracic aorta and/or great vessels consistent with atherosclerotic vessel disease. Teeth: Examination is limited secondary to metallic artifact from dental fillings and/or dental hardware. Soft tissues: Normal. No significant soft tissue swelling. Bones/joints: Large flowing multilevel hypertrophic vertebral body osteophytes consistent with diffuse idiopathic skeletal hyperostosis (DISH) syndrome. Other findings: Ligamentum nuchae ossification/calcification. Codominant vertebral arteries. No ICA stenosis by NASCET/SRU criteria. CT/CT angio headneck* [id number] IMPRESSION: 1. Rsfc-uk-aztstpth left sphenoid sinus disease. 2. Direct origin of the left posterior cerebral artery from the anterior circulation. 3. No large vessel occlusion. IMPRESSION: 1. Codominant vertebral arteries. 2. No ICA stenosis by NASCET/SRU criteria. REFERENCES: NASCET CRITERIA. The degree of stenosis in the cervical segment of the internal carotid artery is based on NASCET criteria. Normal is no stenosis. Mild is less than 50% stenosis. Moderate is 50-69% stenosis. Severe is 70% to 99% stenosis. Total occlusion is no detectable patent lumen.
[2025-07-31 22:19] LABS: Glucose Urine UA Negative (Normal); Nitrate Urine Negative (Negative)
--- NOTE | 2025-07-31 22:22 | PM.HP ---
Providers/Chief Complaint Admitting Physician: Toshia Rojas MD--- admitted before 12 midnight Primary Care Provider: Timoteo Farrar MD Chief Complaint: Numbness on face and neck History of Present Illness Dani Coleman is a 64 year old male with medical history significant for hypertension diabetes type 2 who suddenly today started experiencing right-sided visual field deficit right-sided numbness and slurred speech within half hour of presentation to the emergency room patient was immediately tPA. CT of the head was negative prior to tPA. A CTA of the head and neck was done following this upon my being consulted for care. Neurology Dr. Daugherty was consulted by the ED who saw the patient also in the emergency room patient had no motor deficit but sensory. Patient had change in mental status with reference to date and time and placed blood pressure was elevated at the time of my evaluation of the patient in the emergency room with systolic blood pressure in the 170s and diastolic at 112. A repeat of this blood pressure came down to 150s over 90s. Will permit some level of blood pressure to perfuse the brain in the setting of a possible CVA. Patient is post tPA and will be admitted to ICU at this moment. Patient denies any complaints able to answer questions but does not know his birthdate nor where he is currently. Will obtain MRI in the morning Review of Systems Narrative: System review upon 10 organ reviewed we are noted to be significant for profound weakness and slight poverty of thoughts centrally Medications/Allergies Home Medications ?Medication ?Instructions ?Recorded ?Confirmed ?Last Taken ?Type blood-glucose meter #1 ea 10/19/23 08/01/25 07/06/25 21:00 Rx blood sugar diagnostic (OneTouch #200 strips 10/24/24 08/01/25 07/06/25 21:00 Rx Ultra Test strips) fluticasone propionate 50 See Rx Instructions .Route 01/20/25 08/01/25 Unknown Rx mcg/actuation nasal .COMPLEX #16 grams spray,suspension nitroglycerin 0.4 mg sublingual 0.4 mg sublingual Q5M PRN chest 06/12/25 08/01/25 Unknown Rx tablet pain #20 tabs aspirin 81 mg tablet,delayed 81 mg PO DAILY 06/16/25 08/01/25 07/07/25 05:00 History release (Adult Aspirin Regimen) cholecalciferol (vitamin D3) 125 125 mcg PO DAILY 06/16/25 08/01/25 07/06/25 21:00 History mcg (5,000 unit) tablet (Vitamin D3) diphenhydramine HCl 50 mg tablet 50 mg PO Q6H PRN sleep 06/16/25 08/01/25 07/06/25 21:00 History (Benadryl Allergy) fexofenadine 180 mg tablet 180 mg PO DAILY 06/16/25 08/01/25 07/06/25 21:00 History mecobalamin (vitamin B12) 1,000 1,000 mcg PO DAILY 06/16/25 08/01/25 07/06/25 21:00 History mcg chewable tablet (B12 Active) allopurinol 100 mg tablet 100 mg PO QPM #90 tabs 07/15/25 08/01/25 Unknown Rx atorvastatin 80 mg tablet 80 mg PO BEDTIME #90 tabs 07/15/25 08/01/25 Unknown Rx clopidogrel 75 mg tablet 75 mg PO DAILY #90 tabs 07/15/25 08/01/25 Unknown Rx glimepiride 4 mg tablet 4 mg PO BID #180 tabs 07/15/25 08/01/25 Unknown Rx lisinopril 20 mg tablet 20 mg PO DAILY #90 tabs 07/15/25 08/01/25 Unknown Rx metformin 1,000 mg tablet 1,000 mg PO BID #180 tabs 07/15/25 08/01/25 Unknown Rx metoprolol succinate 25 mg 25 mg PO DAILY #90 tabs 07/15/25 08/01/25 Unknown Rx tablet,extended release 24 hr montelukast 10 mg tablet 10 mg PO DAILY #90 tabs 07/15/25 08/01/25 Unknown Rx pantoprazole 20 mg tablet,delayed 20 mg PO DAILY #90 tabs 07/15/25 08/01/25 Unknown Rx release pioglitazone 15 mg tablet (Actos) 15 mg PO DAILY #90 tabs 07/15/25 08/01/25 Unknown Rx riboflavin (vitamin B2) 400 mg 400 mg PO DAILY opthalmic migraine 07/15/25 08/01/25 Unknown Rx tablet #90 tabs Allergies Allergy/AdvReac Type Severity Reaction Status Date / Time tetracycline AdvReac Intermediate GI Verified 07/07/25 06:40 PFSH Acute PFSH: Medical History Coronary artery disease Bacteriuria with pyuria Hyperlipidemia Hypertension Diabetes mellitus Gout Social History Smoking and tobacco/nicotine status: never used tobacco/nicotine Vitals/I&O/Wt Last Vital Signs Temp 98.1 F 07/31/25 18:27 Pulse 78 07/31/25 22:06 Resp 18 07/31/25 22:06 BP 182/112 07/31/25 22:06 Pulse Ox 97 07/31/25 21:45 O2 Del Method Room Air 07/31/25 20:45 Weight last 48 hrs Weight 102.058 kg Physical Exam Narrative: Weak appearing generally HEENT normocephalic atraumatic neck neck is supple cardiovascular heart rate is a regular lungs are clear abdomen soft nontender nondistended unremarkable extremities are intact no edema has good pulses neurology no focality lab studies lab studies reviewed and noted. Data 07/31/25 18:41 07/31/25 18:41 A&P Assessment and plan 1. Acute stroke due to ischemia: 2. Coronary artery disease: 3. Hypertension: 4. Diabetes mellitus: 5. Hyperlipidemia: 6. Dehydration: Plan: TIA rule out CVA status post thrombolytics - Admit to ICU for this - MRI of the brain without contrast have been ordered and pending - CT of the brain done on admission is noted as part below - Follow-up with speech/PT OT - Right visual field affection-need ophthalmology outpatient CT/CT head thrombolytic [id number] IMPRESSION: 1. Mild left sphenoid sinus disease. 2. No acute intracranial findings. ASSESSMENT: ASPECTS ([place] Stroke Program Early CT Score) is 10. Dictated By: James Ling MD Signed By: James Ling MD Signed Date/Time: 07/31/25 184 DD/ 28 Sensory neurological presentation -Monitor for interval improvement patient status post tPA Dysphagia Follow-up with dysphagia workup and dietary prescription from speech High blood pressure -Allow permissive hypertension to perfuse cerebral Change in mental status -Patient only oriented to self not to place and time at presentation -Monitor for interval improvement -Patient was in the ED within 30 minutes of neurological problems presentation PDMP PDMP Reviewed: Last Reviewed 08/01/25 08:09 by Toshia Rojas MD Attestations Medical Necessity Statement*: Patient with TIA rule out CVA MRI pending at this time patient presenting with neurological symptomatology status post tPA requiring ICU care will need at least 2 midnights from an admission to optimize care. Coding Level of Care Code 65147 Diagnoses Acute stroke due to ischemia I63.9 Coronary artery disease I25.10 Hypertension I10 Diabetes mellitus E11.9 Hyperlipidemia E78.5 Dehydration E86.0 Time Spent (min) 60
[2025-07-31 22:24] LABS: Add Urine Microscopic? YES
[2025-07-31 22:27] LABS: PCP Screen Urine Negative (Negative)
[2025-07-31 22:32] LABS: Specific Gravity, Urine 1.034 (1.005-1.030)
[2025-07-31] MEDS: ondansetron 2 mg/ML SDV 2 mL 4 MG IVP (23:38)
[2025-08-01] VITALS (96 sets, daily range): BP systolic 113–197; BP diastolic 62–127; PULSE 74–105; RESP 0–29; TEMP 36.3–37; O2SAT 91–99
[2025-08-01 00:04] LABS: Cholesterol 124 mg/dL (0-200); HDL Cholesterol 41 mg/dL (60-100); Triglycerides 92 mg/dL (0-150)
[2025-08-01] MEDS: pantoprazole 40 mg SDV IVP ×2 (00:05→22:39)
[2025-08-01] MEDS: ondansetron 2 mg/ML SDV 2 mL 4 MG IVP (06:57)
--- NOTE | 2025-08-01 09:16 | USCV_ITS ---
Jared Leflore Age: 64 Gender: M : 1960 Exam Date: 08/01/2025 12:23 Ordering Phys: Timothy Orozco MD Technologist: Exam Location: [facility] – [place] Indication: cva BP: 113 / 73 HR: Rhythm: Sinus Technical Quality: Adequate MEASUREMENTS (Male / Female) Normal Values 2D ECHO LV Ejection Fraction MOD 4C 65.5 % LV Ejection Fraction MOD 2C 68.3 % LV Ejection Fraction 2C AL 68.7 % FINDINGS Left Ventricle Normal left ventricular size, systolic function and wall thickness, with no regional wall motion abnormalities. Left ventricular ejection fraction is estimated at 60 %. Right Ventricle Right Atrium Left Atrium IA Septum Mitral Valve Aortic Valve Tricuspid Valve Pulmonic Valve Pericardium Aorta IVC CONCLUSIONS Limited echo possible due to suboptimal images Normal left ventricular size, systolic function and wall thickness, with no regional wall motion abnormalities. Left ventricular ejection fraction is estimated at 60 %. There is no pericardial effusion. Phyllis Irby MD (Electronically Signed) Final Date: 02 August 2025 23:37 S
--- NOTE | 2025-08-01 10:18 | MR_ITS ---
WS: [id number] MRI BRAIN WITHOUT CONTRAST HISTORY: TIA issue rule out CVA patient with right-sided neurologic deficit. COMPARISON: 07/31/[address] TECHNIQUE: Diffusion imaging, multiplanar T1, T2 and FLAIR imaging obtained. No evidence for acute infarct or hemorrhage. Frias-white matter differentiation is normal. Very minimal volume loss and small vessel disease. No prior large territory infarct. No lacunar infarct. Ventricles and extra-axial spaces are normal. No inferior displacement of cerebellar tonsils. The sella turcica and pituitary gland are unremarkable. Dural venous sinuses and knik of [place] demonstrate no abnormality on this unenhanced studies. Paranasal sinuses: Well-circumscribed mucous retention cyst in the LEFT sphenoid sinus. Mastoid air cells: Normal. Calvarium and scalp: Intact. MR/MR head wo con* [id number] IMPRESSION: 1. No acute diffusion abnormality or ischemia. 2. Minimal volume loss and small vessel disease. No prior infarcts. 3. Normal ventricles.
--- NOTE | 2025-08-01 11:20 | PC.NURSE ---
materials handling coordinator rounds at 0810- patient not oriented to self, place, or time. Patient not following commands, unable to repeat [place], fifty- fifty, etc. Spoke with primary RN- states patient has been this way since arrival to ICU. No LOC altering meds given recently to cause this confusion per RN. Left stroke education book at the bedside. I had given him one in Jun as well.
--- NOTE | 2025-08-01 13:21 | P.PN_ITS ---
Subjective 2 Subjective: Patient is with his and family. They report that he is doing much better today. Apparently the patient had an MRI of the brain today, not sure of the reasoning but I did review the images. This study is normal. His CAT scan of the head was negative. He is still having expressive speech difficulty. Vitals/I&O/Wt Last Vital Signs Temp 97.3 F L 08/01/25 05:08 Pulse 101 H 08/01/25 09:00 Resp 12 08/01/25 05:30 BP 168/92 08/01/25 09:00 Pulse Ox 96 08/01/25 09:00 O2 Del Method Room Air 08/01/25 04:35 Weight last 48 hrs Weight 233 lb 11.04 oz Weight 233 lb 11.04 oz Weight 225 lb Physical Exam 2 Narrative: GENERAL: Wide-awake and alert. MENTAL STATUS: He can say his birthdate. He has trouble trying to say his name. He could repeat a simple but not a complex phrase. He makes mistakes on serial commands but he can follow single step commands. CRANIAL NERVES: Visual giron were full to confrontation, direct and consensual. Extraocular movements were full without nystagmus. PERRLA. Face was symmetric at rest and with grimace. Facial sensation was intact bilaterally to pin and touch MOTOR: There was no drift of the extended arms. Fine movements in the hands were rapid and symmetric. No weakness in any of the 4 extremities. SENSATION: Subjective reduced sensation on the right COORDINATION: Normal yymr-twyi-bmna and taksos-htzx-jefpgs. DEEP TENDON REFLEXES: 2/4 throughout. GAIT: Not tested CARDIOVASCULAR: The heart sounds were normal without murmur or gallop. Regular rate and rhythm. Data 07/31/25 18:41 07/31/25 18:41 A&P Assessment and plan 1. Acute stroke due to ischemia: 64-year-old man who presented with receptive aphasia, right visual field cut and right hemianesthesia suggesting posterior branch left middle cerebral artery or potentially small penetrating thalamic branch ischemia, aborted by TNK. No signs of hemorrhage on CAT scan. The hospitalist insisted on MRI which is unremarkable. Plan: Recommend moving the patient out of ICU today and if he is able to walk he can go home tomorrow on Plavix, aspirin and atorvastatin. Recommend 30-day heart monitor to rule out atrial fibrillation. Follow-up with Dr. Huff and I will see the patient if Dr. Huff thinks it is needed. PDMP PDMP Reviewed: Not Reviewed Attestations 2 Medical Necessity Statement*: Acute stroke aborted by TNK Coding Level of Care Code Acute Code for [facility] Diagnoses Acute stroke due to ischemia I63.9
--- NOTE | 2025-08-01 15:39 | PC.OT ---
OT EVALUATION HELD; HOLD IN A.M. DUE TO TKNASE ATTEMPT IN P.M. BUT PATIENT IS SLEEPING SOUNDLY
--- NOTE | 2025-08-01 17:07 | PM.PN ---
Subjective Subjective: Patient is with his and the friend and reported that he is relatively better today than yesterday The patient is still having expressive aphasia however is able to understand and comprehend. Vitals/I&O/Wt Last Vital Signs Temp 97.3 F L 08/01/25 05:08 Pulse 85 08/01/25 14:00 Resp 19 H 08/01/25 14:00 BP 133/78 08/01/25 14:00 Pulse Ox 95 08/01/25 10:00 O2 Del Method Room Air 08/01/25 04:35 Weight last 48 hrs Weight 106 kg Weight 106 kg Weight 102.058 kg Physical Exam Narrative: General: Alert however orientation cannot be assessed since the patient has expressive aphasia, lying comfortably without any distress without any oxygen supplementation HEENT: Normocephalic, atraumatic, grossly unremarkable exam Cardio: normal rate rhythm, normal S1-S2 without any murmurs, rubs, or gallops and JVD normal Respiratory: normal vascular breathing on auscultation without any wheezes, stridor, rhonchi GI: Abdomen soft, nontender, nondistended, normoactive bowel sounds present all 4 quadrants, Neuro: Patient having expressive aphasia, gross motor examination is unremarkable however sensory and coordination is limited since the patient cannot cooperate at times and cannot understand with the command however he is alert and was comfortable Behavior: Appropriate and cooperative Extremities: Adequate palpable pulses, no edema or cyanosis observed. Data 07/31/25 18:41 07/31/25 18:41 A&P Assessment and plan 1. Acute stroke due to ischemia: Patient to be started on aspirin clopidogrel and statin after 24 hours since he is s/p tPA VTE prophylaxis to be started after 24 to 48 hours OT PT evaluation Echo to follow with limited bubble study since the patient has 1 month ago and echo showing EF of 60% MRI brain EKG showed possible left atrial enlargement but no atrial fibrillation. Neurochecks every shift Maintain normal hemodynamics Maintain normoglycemia HbA1c last month showed around 8% and lipid panel is somehow controlled Neuro recommended 30-day heart monitor to rule out any atrial fibrillation Follow-up with Dr. Huff at the time of discharge 2. Coronary artery disease: Continue aspirin and statins Telemetry monitoring 3. Hypertension: Hold off any antihypertensives at the moment since the patient blood pressure is more or less in the normal range 4. Diabetes mellitus: Insulin sliding scale 5. Hyperlipidemia: Statins to continue 6. Dehydration: Encourage oral intake PDMP PDMP Reviewed: Not Reviewed Attestations Medical Necessity Statement*: Patient will stay overnight for the management of his stroke s/p tPA having expressive aphasia and further requiring OT PT evaluation and management Time Spent in Patient Care: 16 - 35 minutes (>than 50% of time spent in counselling and/or direct pt care on unit). Other Attestations: Patient condition has been discussed at length with the patient/family, I have independently reviewed the chart labs imaging/diagnostics/EKG. the goals of care and code status with the patient/family/NOK/legal premium service representative, and documented accordingly. The patient/family has been informed about the current condition and further plan of care. Agreed with the plan of care and understood without any language barrier. Every effort was made to ensure accuracy of cloth spreader screen printing. Any obvious errors or omissions should be clarified with the author of the document. Coding Level of Care Code 28000 Diagnoses Acute stroke due to ischemia I63.9 Coronary artery disease I25.10 Hypertension I10 Diabetes mellitus E11.9 Hyperlipidemia E78.5 Dehydration E86.0
[2025-08-01 19:19] LABS: Hematocrit 44.3 % (37-53); Hemoglobin 14.90 g/dL (11.27-16.99); Mean Corpuscular HGB Conc 33.6 g/dL (30-55); Mean Corpuscular Hemoglobin 28.7 pg (27-33); Mean Corpuscular Volume 85.2 fl (82-101); Nucleated Red Blood Cells % 0 %; Platelet Count 208 10^3/cmm (157-399); Red Blood Count 5.20 10^6/uL (3.85-5.65); White Blood Count 7.71 10^3/uL (3.29-11.43)
[2025-08-01 19:33] LABS: Alanine Aminotransferase 18 U/L (0-41); Albumin Level 3.9 g/dL (3.5-5.2); Alkaline Phosphatase 80 U/L (40-130); Anion Gap 16.8 (5-19); Aspartate Amino Transferase 19 U/L (0-40); Blood Urea Nitrogen 10 mg/dL (8-23); Calcium 8.9 mg/dL (8.5-10.5); Carbon Dioxide 24 mmol/L (22-29); Chloride 100 mmol/L (98-107); Creatinine Clr Calc Pharmacy 107.0815; Globulin 2.9 g/dL (1.3-4.6); Glucose 251 mg/dL (65-115); Magnesium 1.7 mg/dL (1.7-2.3); Osmolality Calculated 292 mOsm/kg (285-295); Potassium 3.8 mmol/L (3.5-5.1); Sodium 137 mmol/L (136-145); Total Protein 6.8 g/dL (6.6-8.7)
[2025-08-01 19:36] LABS: NT Pro B Type Natriuretic Pept 2111 pg/mL (0-125)
[2025-08-02] VITALS (33 sets, daily range): BP systolic 92–163; BP diastolic 47–89; PULSE 67–86; RESP 7–27; TEMP 36.2–36.6; O2SAT 92–97
[2025-08-02] MEDS: metoprolol succinate ER (24 HR) 25 mg Tablet PO (04:36)
[2025-08-02 05:13] LABS: Thyroid Stimulating Hormone 0.90 uIU/mL (0.27-4.20)
--- NOTE | 2025-08-02 11:22 | PM.PN ---
Subjective Subjective: The patient was seen in the morning, expressive aphasia has resolved, patient is alert oriented to time place and person. And able to move his arms and legs without any difficulty no other focal neurological deficit appreciated. Patient did not voice any other complaints. Vitals/I&O/Wt Last Vital Signs Temp 97.6 F 08/02/25 04:30 Pulse 68 08/02/25 10:00 Resp 15 08/02/25 10:00 BP 142/77 08/02/25 10:00 Pulse Ox 94 08/02/25 08:00 O2 Del Method Room Air 08/01/25 04:35 08/01/25 08/02/25 08/02/25 22:59 06:59 14:59 Intake Total 155 / 155 851.25 / 1006.25 240 / 240 Balance 155 / 155 851.25 / 1006.25 240 / 240 Weight last 48 hrs Weight 105.687 kg Weight 106 kg Weight 106 kg Weight 102.058 kg Physical Exam Narrative: General: Alert however orientation lying comfortably on the bed without any distress HEENT: Normocephalic, atraumatic, grossly unremarkable exam Cardio: normal rate rhythm, normal S1-S2 without any murmurs, rubs, or gallops and JVD normal Respiratory: normal vascular breathing on auscultation without any wheezes, stridor, rhonchi GI: Abdomen soft, nontender, nondistended, normoactive bowel sounds present all 4 quadrants, Neuro: Gross motor/sensory/cranial nerves with coordination exam unremarkable Behavior: Appropriate and cooperative Extremities: Adequate palpable pulses, no edema or cyanosis observed. Data 08/01/25 19:05 08/01/25 19:05 A&P Assessment and plan 1. Acute stroke due to ischemia: Continue on aspirin and statin and clopidogrel, patient s/p tPA VTE prophylaxis heparin twice daily OT PT evaluation Echo to follow with limited bubble study since the patient has 1 month ago and echo showing EF of 60% MRI brain did not show any acute diffusion abnormality of ischemia EKG showed possible left atrial enlargement but no atrial fibrillation. Neurochecks every shift Maintain normal hemodynamics Maintain normoglycemia HbA1c last month showed around 8% and lipid panel is somehow controlled Neuro recommended 30-day heart monitor to rule out any atrial fibrillation Follow-up with neurology postdischarge Patient to be transferred to [facility]. 2. Coronary artery disease: Continue aspirin and statins Telemetry monitoring 3. Hypertension: Hold off any antihypertensives at the moment since the patient blood pressure is more or less in the normal range 4. Diabetes mellitus: Insulin sliding scale 5. Hyperlipidemia: Statins to continue 6. Dehydration: Encourage oral intake PDMP PDMP Reviewed: Not Reviewed Attestations Medical Necessity Statement*: The patient will stay overnight for further optimization of his acute stroke with OT PT evaluation and recommendation postdischarge Time Spent in Patient Care: 16 - 35 minutes (>than 50% of time spent in counselling and/or direct pt care on unit). Other Attestations: Patient condition has been discussed at length with the patient/family, I have independently reviewed the chart labs imaging/diagnostics/EKG. the goals of care and code status with the patient/family/NOK/legal entry level account representative, and documented accordingly. The patient/family has been informed about the current condition and further plan of care. Agreed with the plan of care and understood without any language barrier. Every effort was made to ensure accuracy of silica mixer operator. Any obvious errors or omissions should be clarified with the author of the document. Coding Level of Care Code Acute Code for g Fwd Diagnoses Acute stroke due to ischemia I63.9 Coronary artery disease I25.10 Hypertension I10 Diabetes mellitus E11.9 Hyperlipidemia E78.5 Dehydration E86.0
--- NOTE | 2025-08-02 13:47 | PC.NURSE ---
1340 Called report to MS, patient awake and alert, no c/o's, vss at bedside. Transfer via wheelchair with all belongings and at side.
[2025-08-02] MEDS: pantoprazole 40 mg SDV IVP (22:50)
[2025-08-03] VITALS (10 sets, daily range): BP systolic 130–189; BP diastolic 71–99; PULSE 73–79; RESP 14–17; TEMP 36.5–36.8; O2SAT 92–95
[2025-08-03] MEDS: ondansetron 2 mg/ML SDV 2 mL 4 MG IVP (02:43)
--- NOTE | 2025-08-03 03:57 | PC.NURSE ---
THIS RN WAS NOTIFIED BY THE SLOT TECHNICIAN THAT THE PT BP WAS 189/99 ON THE SECOND TRY. THIS RN NOTIFIED THE MD DATA EXAMINATION CLERK OF THE ELEVATED BP AND ASKED IF WE COULD GET SOMETHING PRN FOR THE BP SINCE THE PT IS A RECENT STROKE AND IS NOW C/O A HEADACHE. THIS RN ASSESSED THE PT AND THE PT HAD A NORMAL NEURO EXAM. MD RESPONDED WITH REPEAT VITAL . THIS RN WILL GIVE SCHEDULED MORNING BP MEDS TO HELP WITH BP.
[2025-08-03] MEDS: metoprolol succinate ER (24 HR) 25 mg Tablet PO (04:04)
[2025-08-03 05:42] LABS: Hematocrit 40.9 % (37-53); Hemoglobin 13.60 g/dL (11.27-16.99); Mean Corpuscular HGB Conc 33.3 g/dL (30-55); Mean Corpuscular Hemoglobin 29.4 pg (27-33); Mean Corpuscular Volume 88.3 fl (82-101); Nucleated Red Blood Cells % 0 %; Platelet Count 163 10^3/cmm (157-399); Red Blood Count 4.63 10^6/uL (3.85-5.65); White Blood Count 6.48 10^3/uL (3.29-11.43)
[2025-08-03 06:05] LABS: Alanine Aminotransferase 19 U/L (0-41); Albumin Level 3.6 g/dL (3.5-5.2); Alkaline Phosphatase 75 U/L (40-130); Anion Gap 16.8 (5-19); Aspartate Amino Transferase 19 U/L (0-40); Blood Urea Nitrogen 7 mg/dL (8-23); Calcium 8.6 mg/dL (8.5-10.5); Carbon Dioxide 23 mmol/L (22-29); Chloride 102 mmol/L (98-107); Creatinine Clr Calc Pharmacy 137.7350; Globulin 2.7 g/dL (1.3-4.6); Glucose 268 mg/dL (65-115); Osmolality Calculated 293 mOsm/kg (285-295); Potassium 3.8 mmol/L (3.5-5.1); Sodium 138 mmol/L (136-145); Total Protein 6.3 g/dL (6.6-8.7)
--- NOTE | 2025-08-03 13:27 | P.PN_ITS ---
Subjective 2 Subjective: The patient was seen in the morning, expressive aphasia has resolved, patient is alert oriented to time place and person. And able to move his arms and legs without any difficulty no other focal neurological deficit appreciated. Patient did not voice any other complaints. Vitals/I&O/Wt Last Vital Signs Temp 97.7 F 08/03/25 11:49 Pulse 73 08/03/25 11:49 Resp 16 08/03/25 11:49 BP 155/86 08/03/25 11:49 Pulse Ox 95 08/03/25 11:49 O2 Del Method Room Air 08/03/25 11:49 08/02/25 08/03/25 08/03/25 22:59 06:59 14:59 Intake Total 1066.25 / 1546.25 700 / 2246.25 360 / 360 Output Total 700 / 700 1825 / 2525 950 / 950 Balance 366.25 / 846.25 -1125 / -278.75 -590 / -590 Weight last 48 hrs Weight 106.095 kg Weight 105.687 kg Physical Exam 2 Narrative: General: Alert however orientation lying comfortably on the bed without any distress HEENT: Normocephalic, atraumatic, grossly unremarkable exam Cardio: normal rate rhythm, normal S1-S2 without any murmurs, rubs, or gallops and JVD normal Respiratory: normal vascular breathing on auscultation without any wheezes, stridor, rhonchi GI: Abdomen soft, nontender, nondistended, normoactive bowel sounds present all 4 quadrants, Neuro: Gross motor/sensory/cranial nerves with coordination exam unremarkable Behavior: Appropriate and cooperative Extremities: Adequate palpable pulses, no edema or cyanosis observed. Data 08/03/25 04:44 08/03/25 04:44 A&P Assessment and plan 1. Acute stroke due to ischemia: Continue on aspirin and statin and clopidogrel, patient s/p tPA VTE prophylaxis heparin twice daily OT PT evaluation Echo showed ejection fraction of 60% MRI brain did not show any acute diffusion abnormality of ischemia EKG showed possible left atrial enlargement but no atrial fibrillation. Neurochecks every shift Maintain normal hemodynamics Maintain normoglycemia HbA1c last month showed around 8% and lipid panel is somehow controlled Neuro recommended 30-day heart monitor to rule out any atrial fibrillation that will be done on a weekday Follow-up with neurology postdischarge Patient to be transferred to [facility]. 2. Coronary artery disease: Continue aspirin and statins Telemetry monitoring 3. Hypertension: Hold off any antihypertensives at the moment since the patient blood pressure is more or less in the normal range 4. Diabetes mellitus: Insulin sliding scale 5. Hyperlipidemia: Statins to continue 6. Dehydration: Encourage oral intake PDMP PDMP Reviewed: Not Reviewed Attestations 2 Medical Necessity Statement*: The patient will stay overnight for post discharge placement of 30-day event monitor Time Spent in Patient Care: 16 - 35 minutes (>than 50% of time sp ent in counselling and/or direct pt care on unit) . Other Attestations: Patient condition has been discussed at length with the patient/family, I have independently reviewed the chart labs imaging/diagnostics/EKG. the goals of care and code status with the patient/family/NOK/legal mill representative, and documented accordingly. The patient/family has been informed about the current condition and further plan of care. Agreed with the plan of care and understood without any language barrier. Every effort was made to ensure accuracy of tower equipment installer. Any obvious errors or omissions should be clarified with the author of the document. Coding Level of Care Code Acute Code for [facility] Fwd Diagnoses Acute stroke due to ischemia I63.9 Coronary artery disease I25.10 Hypertension I10 Diabetes mellitus E11.9 Hyperlipidemia E78.5 Dehydration E86.0
[2025-08-03] MEDS: heparin 5,000 unit/mL INJ 1 mL 5000 UNIT SUBCUT (17:43)
[2025-08-03] MEDS: pantoprazole 40 mg SDV IVP (23:29)
[2025-08-04 03:53] VITALS: BP 169/92; PULSE 77; RESP 15; TEMP 36.8; O2SAT 94
[2025-08-04] MEDS: heparin 5,000 unit/mL INJ 1 mL 5000 UNIT SUBCUT (05:17)
[2025-08-04] MEDS: metoprolol succinate ER (24 HR) 25 mg Tablet PO (05:17)
[2025-08-04 05:33] VITALS: PULSE 72
[2025-08-04 07:39] VITALS: BP 157/87; PULSE 69; RESP 17; TEMP 36.5; O2SAT 94
[2025-08-04 10:52] VITALS: BP 165/94; PULSE 73; RESP 18; TEMP 36.6; O2SAT 94
--- NOTE | 2025-08-04 11:36 | PC.NURSE ---
product inspection coordinator rounds @ 1045- pt with physician discussing discharge
--- NOTE | 2025-08-04 12:50 | P.DS_ITS ---
Discharge Providers Date of Admission: 07/31/25 19:58 Date of Discharge: August 03, 2025 Attending Provider at Admission: Toshia Rojas MD Attending Provider at Discharge: Timothy Orozco MD Primary Care Provider: Timoteo Farrar MD Diagnoses at Discharge Discharge Diagnosis 1. Acute stroke due to ischemia: 2. Coronary artery disease: 3. Hypertension: 4. Diabetes mellitus: 5. Hyperlipidemia: 6. Dehydration: Reason for Visit Reason for Visit: Numbness on face and neck Brief History: As per the previous notes and the patient Dani Coleman is a 64 year old male with medical history significant for hypertension diabetes type 2 who suddenly today started experiencing right-sided visual field deficit right-sided numbness and slurred speech within half hour of presentation to the emergency room patient was immediately tPA. CT of the head was negative prior to tPA. Hospital Course Hospital Course The patient was kept in the hospital post tPA. He was admitted in ICU for further monitoring and had uneventful hospital stay. The patient initially had some confusion and expressive aphasia which later on improved immensely with his independent mobility after OTP OT evaluation. MRI of the head did not show any diffusion abnormality or ischemia.The patient had recent carotid Doppler and did not show significant stenosis on both sides of the internal carotid arteries in August. Echocardiogram showed normal left ventricular size and systolic function with EF of 60%. His TSH were normal. He was seen by the neurologist and recommended for aspirin Plavix and statins to continue and to see Dr. Huff at the time of discharge. Patient HbA1c was found to 8.3% times was given reservoir engineering manager referral provided. A 30-day event monitor was also provided at the time of discharge as per neuro logy recommendation. Patient also informed about his postdischarge follow-ups especially with to continue with cardiac rehab, adequate referrals provided and medication reconciled. Patient condition has been discussed at length with the patient/family, I have independently reviewed the chart labs imaging/diagnostics/EKG. the goals of care and code status with the patient/family/NOK/legal senior account representative, and documented accordingly. The patient/family has been informed about the current condition and further plan of care. Agreed with the plan of care and understood without any language barrier. Every effort was made to ensure accuracy of power operator. Any obvious errors or omissions should be clarified with the author of the document. Physical Exam Narrative: General: Alert however orientation lying comfortably on the bed without any distress, independently ambulating without any dizziness or concerns HEENT: Normocephalic, atraumatic, grossly unremarkable exam Cardio: normal rate rhythm, normal S1-S2 without any murmurs, rubs, or gallops and JVD normal Respiratory: normal vascular breathing on auscultation without any wheezes, stridor, rhonchi GI: Abdomen soft, nontender, nondistended, normoactive bowel sounds present all 4 quadrants, Neuro: Gross motor/sensory/cranial nerves with coordination exam unremarkable Behavior: Appropriate and cooperative Extremities: Adequate palpable pulses, no edema or cyanosis observed. Discharge Data Studies Completed and Pending Completed Studies During Hospitalization Category Date Time Status CT head thrombolytic [id number] Stat Cat Scan 07/31/25 18:27 Completed CTA head neck [CT angio headneck* [id number]] Stat Cat Scan 07/31/25 19:42 Completed MR head wo con* [id number] Routine MRI 08/01/25 10:18 Completed CV. echo lmt w/w contras [id number] Routine Ultrasound 08/01/25 09:16 Completed Radiology Impressions Head CT 07/31/25 18:27 IMPRESSION: 1. Mild left sphenoid sinus disease. 2. No acute intracranial findings. ASSESSMENT: ASPECTS ([place] Stroke Program Early CT Score) is 10. ADDENDUM: 07/31/25 2911 THIS REPORT CONTAINS FINDINGS THAT MAY BE CRITICAL TO PATIENT CARE. The findings were verbally communicated via telephone conference with CON BETTS at 6:43 PM CDT on 07/31/2025. The findings were acknowledged and understood. Head/Neck CTA 07/31/25 19:42 IMPRESSION: 1. Uoun-ul-osuockrk left sphenoid sinus disease. 2. Direct origin of the left posterior cerebral artery from the anterior circulation. 3. No large vessel occlusion. IMPRESSION: 1. Codominant vertebral arteries. 2. No ICA stenosis by NASCET/SRU criteria. REFERENCES: NASCET CRITERIA. The degree of stenosis in the cervical segment of the internal carotid artery is based on NASCET criteria. Normal is no stenosis. Mild is less than 50% stenosis. Moderate is 50-69% stenosis. Severe is 70% to 99% stenosis. Total occlusion is no detectable patent lumen. Head MRI 08/01/25 10:18 IMPRESSION: 1. No acute diffusion abnormality or ischemia. 2. Minimal volume loss and small vessel disease. No prior infarcts. 3. Normal ventricles. Laboratory Results WBC 6.48 10^3/uL (3.29-11.43) 08/03/25 04:44 RBC 4.63 10^6/uL (3.85-5.65) 08/03/25 04:44 Hgb 13.60 g/dL (11.27-16.99) 08/03/25 04:44 Hct 40.9 % (37-53) 08/03/25 04:44 MCV 88.3 fl (82-101) 08/03/25 04:44 MCH 29.4 pg (27-33) 08/03/25 04:44 MCHC 33.3 g/dL (30-55) 08/03/25 04:44 RDW 14.3 % (12.1-15.1) 08/03/25 04:44 Plt Count 163 10^3/cmm (157-399) 08/03/25 04:44 MPV 10.4 fL (7.4-10.4) 08/03/25 04:44 Neut % (Auto) 70.8 % 08/03/25 04:44 Lymph % (Auto) 17.7 % 08/03/25 04:44 [place] % (Auto) 8.6 % 08/03/25 04:44 Eos % (Auto) 1.9 % 08/03/25 04:44 Baso % (Auto) 0.5 % 08/03/25 04:44 Neut # (Auto) 4.59 10^3/uL (1.8-7.7) 08/03/25 04:44 Lymph # (Auto) 1.2 10^3/uL (0.8-4.8) 08/03/25 04:44 [place] # (Auto) 0.6 10^3/uL (0.2-0.9) 08/03/25 04:44 Eos # (Auto) 0.1 10^3/uL (0.0-0.8) 08/03/25 04:44 Baso # (Auto) 0.0 10^3/uL (0.0-0.1) 08/03/25 04:44 Nucleated RBC % (auto) 0 % 08/03/25 04:44 Nucleated RBCs # 0.0 /100WBC 08/03/25 04:44 PT 14.20 SECONDS (12.1-14.9) 07/31/25 18:41 INR 1.02 (0.8-1.2) 07/31/25 18:41 APTT 26.2 SECONDS (23.9-36.7) 07/31/25 18:41 Sodium 138 mmol/L (136-145) 08/03/25 04:44 Potassium 3.8 mmol/L (3.5-5.1) 08/03/25 04:44 Chloride 102 mmol/L (98-107) 08/03/25 04:44 Carbon Dioxide 23 mmol/L (22-29) 08/03/25 04:44 Anion Gap 16.8 (5-19) 08/03/25 04:44 BUN 7 mg/dL (8-23) L 08/03/25 04:44 Creatinine 0.7 mg/dL (0.7-1.2) 08/03/25 04:44 GFR Calculation 114.3 mL/min (90-130) 08/03/25 04:44 Glucose 268 mg/dL (65-115) H 08/03/25 04:44 POC Glucose 271 mg/dL (70-110) H 08/03/25 11:24 Calculated Osmolality 293 mOsm/kg (285-295) 08/03/25 04:44 Calcium 8.6 mg/dL (8.5-10.5) 08/03/25 04:44 Phosphorus 3.2 mg/dL (2.5-4.5) 08/01/25 19:05 Magnesium 1.7 mg/dL (1.7-2.3) 08/01/25 19:05 Total Bilirubin 0.4 mg/dL (0.15-1.2) 08/03/25 04:44 AST 19 U/L (0-40) 08/03/25 04:44 ALT 19 U/L (0-41) 08/03/25 04:44 Alkaline Phosphatase 75 U/L (40-130) 08/03/25 04:44 NT-Pro-B Natriuret Pep 2111 pg/mL (0-125) H 08/01/25 19:05 Total Protein 6.3 g/dL (6.6-8.7) L 08/03/25 04:44 Albumin 3.6 g/dL (3.5-5.2) 08/03/25 04:44 Globulin 2.7 g/dL (1.3-4.6) 08/03/25 04:44 Triglycerides 92 mg/dL (0-150) 07/31/25 18:41 Cholesterol 124 mg/dL (0-200) 07/31/25 18:41 LDL Cholesterol, Calc 65 mg/dL (50-129) 07/31/25 18:41 HDL Cholesterol 41 mg/dL (60-100) L 07/31/25 18:41 LDL/HDL Ratio 1.59 RATIO (0.00-3.22) 07/31/25 18:41 Cholesterol/HDL Ratio 3.02 mg/dL (1.0-5.00) 07/31/25 18:41 TSH 0.90 uIU/mL (0.27-4.20) 08/02/25 03:35 Urine Color Yellow (Yellow) 07/31/25 22:10 Urine Appearance Clear (CLEAR) 07/31/25 22:10 Urine pH 6.5 (5-7) 07/31/25 22:10 Ur Specific [place] 1.034 (1.005-1.030) H 07/31/25 22:10 Urine Protein Negative (Negative) 07/31/25 22:10 Urine Glucose (UA) Negative (Normal) 07/31/25 22:10 Urine Ketones Negative (Negative) 07/31/25 22:10 Urine Blood Negative (Negative) 07/31/25 22:10 Urine Nitrate Negative (Negative) 07/31/25 22:10 Urine Bilirubin Negative (Negative) 07/31/25 22:10 Urine Urobilinogen 1.0 mg/dL (Negative) 07/31/25 22:10 Ur Leukocyte Esterase Negative (Negative) 07/31/25 22:10 Urine RBC 0-2 /hpf (0-2) 07/31/25 22:10 Urine WBC 0-5 /hpf (0-5) 07/31/25 22:10 Ur Squamous Epith Cells 0-5 /hpf (0-5) 07/31/25 22:10 Amorphous Sediment Not Reportable 07/31/25 22:10 Urine Bacteria None seen /hpf (NONE) 07/31/25 22:10 Hyaline Casts 0.40 /lpf 07/31/25 22:10 Urine Opiates Screen Negative ng/mL (Negative) 07/31/25 22:10 Ur Barbiturates Screen Negative ng/mL (Negative) 07/31/25 22:10 Ur Phencyclidine Scrn Negative ng/mL (Negative) 07/31/25 22:10 Ur Amphetamines Screen Negative ng/mL (Negative) 07/31/25 22:10 U Benzodiazepines Scrn Negative ng/mL (Negative) 07/31/25 22:10 Urine Cocaine Screen Negative ng/mL (Negative) 07/31/25 22:10 U Marijuana (THC) Screen Negative ng/mL (Negative) 07/31/25 22:10 Vitals Last Vital Signs Temp 97.7 F 08/03/25 11:49 Pulse 73 08/03/25 11:49 Resp 16 08/03/25 11:49 BP 155/86 08/03/25 11:49 Pulse Ox 95 08/03/25 11:49 O2 Del Method Room Air 08/03/25 11:49 Discharge Plan Discharge Patient Disposition: Home Condition: Stable Prescriptions: Continued (DME) blood-glucose meter Misc See Rx Instructions .MEDSUPPLY Qty: 1 0RF Rx Instructions: Use as directed for checking blood sugar nitroglycerin 0.4 mg tablet, sublingual 0.4 mg sublingual Q5M PRN (Reason: chest pain) Qty: 20 11RF Rx Instructions: do not exceed 3 doses per episode allopurinol 100 mg tablet 100 mg PO QPM Qty: 90 3RF atorvastatin 80 mg tablet 80 mg PO BEDTIME Qty: 90 11RF clopidogrel 75 mg tablet 75 mg PO DAILY Qty: 90 11RF glimepiride 4 mg tablet 4 mg PO BID Qty: 180 3RF lisinopril 20 mg tablet 20 mg PO DAILY Qty: 90 3RF metformin 1,000 mg tablet 1,000 mg PO BID Qty: 180 3RF metoprolol succinate 25 mg tablet extended release 24 hr 25 mg PO DAILY Qty: 90 11RF pantoprazole 20 mg tablet,delayed release (DR/EC) 20 mg PO DAILY Qty: 90 3RF pioglitazone [Actos] 15 mg tablet 15 mg PO DAILY Qty: 90 11RF riboflavin (vitamin B2) 400 mg tablet 400 mg PO DAILY Qty: 90 11RF Rx Instructions: to prevent migraines montelukast 10 mg tablet 10 mg PO DAILY Qty: 90 3RF (DME) OneTouch Ultra Test Strip See Rx Instructions .ROUTE .COMPLEX Qty: 200 12RF Dose Instruction: USE DIRECTED with glucometer TO check blood sugar Rx Instructions: USE DIRECTED with glucometer TO check blood sugar fluticasone propionate 50 mcg/actuation spray,suspension See Rx Instructions .ROUTE .COMPLEX Qty: 16 11RF Dose Instruction: USE 2 SPRAYS IN EACH NOSTRIL EVERY DAY NEEDED FOR sinus mass FOR 12 MONTHS Rx Instructions: USE 2 SPRAYS IN EACH NOSTRIL EVERY DAY NEEDED FOR sinus mass FOR 12 MONTHS Benadryl Allergy 50 mg Tablet 50 mg PO Q6H PRN (Reason: sleep ) fexofenadine 180 mg Tablet 180 mg PO DAILY cholecalciferol (vitamin D3) [Vitamin D3] 125 mcg (5,000 unit) Tablet 125 mcg PO DAILY mecobalamin (vitamin B12) [B12 Active] 1,000 mcg Tablet,Chewable 1,000 mcg PO DAILY aspirin [Adult Aspirin Regimen] 81 mg tablet,delayed release (DR/EC) 81 mg PO DAILY Union Organizer OK for DC: Neurology Discharge Order = DC NOW: Discharge Order (Routine); Ordered 08/04/25 Ordered By: Timothy Orozco Referrals: Keyla Daugherty MD [Physician, Neurology] - 11/10/25 3:00 pm Referral Note: Odilon Rapp MD [Physician, Endocrinology] - 08/13/25 3:00 pm Referral Note: Frankie Huff MD [Physician, Family Practice] - 1 week Referral Note: as per referral recommendations from Dr Daugherty to evaluate post discharge follow up We have notified your physician's clinic of the need for a follow-up appointment to be scheduled. If you have not heard from them within the next 2 business days, please call them directly. Discharge Diet: Advance as tolerated, Usual diet, As Directed, Cardiac, Diabetic and Low Salt Discharge Activity: Resume usual activity, Increase activity as tolerated and Limit activity as instructed Patient Instructions: Opioid Safety, Patient Portal & Ashley Instructions Discharge Attestations Time Spent in Discharge Care*: greater than 30 min Specific Discharge Activities: educating patient, educating and/or supporting family/caregiver, discussing with pcp/other providers, discussing with case management specialist/social workers/dc planners, documenting/other paperwork and evaluating patient/reviewing data Status at Discharge: Cognitive status at discharge: cognitively intact , Behavioral status at discharge: cooperative , Functional status at discharge: independent ambulation , Overall status at discharge: patient is back to baseline Quality Metrics Clinical Quality Measures [ Cerebrovascular Accident { Contraindication to Antithrombotic: None; antithrombotic prescribed; Contraindication to Anticoagulation: None; anticoagulation prescribed; Contraindication to Statin: None; Statin prescribed; Reason stroke education not provided: Stroke education provided to patient; Pt Provided Written Stroke Discharge Instructions: Patient given written information; Rehab services assessed: Activities of daily living assessment, Rehabilitation assessment, Physical therapy, Occupational therapy, Speech therapy, Stroke rehabilitation, Other;}] Coding Level of Care Code Acute Code for [facility] Fwd Diagnoses Acute stroke due to ischemia I63.9 Coronary artery disease I25.10 Hypertension I10 Diabetes mellitus E11.9 Hyperlipidemia E78.5 Dehydration E86.0
[2025-08-04 13:41] VITALS: BP 165/95; PULSE 73; RESP 18; TEMP 36.6; O2SAT 94
--- NOTE | 2025-08-04 14:17 | PC.NURSE ---
Cardiac event monitor delivered to bedside. This nurse applied monitor to pt and instructed pt and family on use. Discharge instructions provided to pt and family with no questions or concerns voiced at this time.
== END 2025-08-04 14:47 | disposition home or self-care (01) | DRG 63 ==
LOC: ER 19:58 → ICU 19:59 → MEDSURG 08-02 13:55
PROVIDERS: Admitting Provider Internal Medicine; Emergency Provider Emergency Medicine; PCP Family Medicine; Visit Provider Student in an Organized Health Care Education/Training Program
DX: I63.9 Cerebral infarction, unspecified (principal); R29.705 NIHSS score 5; I10 Essential (primary) hypertension; I25.10 Atherosclerotic heart disease of native coronary artery without angina pectoris; E86.0 Dehydration; R47.81 Slurred speech; R20.0 Anesthesia of skin; R13.10 Dysphagia, unspecified; R82.81 Pyuria; M10.9 Gout, unspecified; R47.01 Aphasia; E11.9 Type 2 diabetes mellitus without complications; E78.5 Hyperlipidemia, unspecified; I25.2 Old myocardial infarction; Z79.899 Other long term (current) drug therapy; Z95.5 Presence of coronary angioplasty implant and graft; Z79.82 Long term (current) use of aspirin; Z79.84 Long term (current) use of oral hypoglycemic drugs; Z79.02 Long term (current) use of antithrombotics/antiplatelets; Z88.3 Allergy status to other anti-infective agents
CPT/HCPCS: 36415; 36416; 70450; 70496; 70498; 70551; 80053; 80061; 80306; 81001; 82962; 83735; 83880; 84100; 84443; 85025; 85610; 85730; 92523; 92610; 93005; 96365; 96372; 96375; 97110; 97116; 97162; 97165; 97530; 99291; C8924; J1644; J2405; J2470; J3101; J3490; J7030; J9999

== ENCOUNTER 2025-08-15 10:04 | Outpatient (RCR) | payer OTHER, SELFPAY | END 2025-09-07 23:59 | disposition home or self-care (01) | LOC: CR 10:04 | PROVIDERS: PCP Family Medicine; Referring Provider Internal Medicine; Visit Provider Family Medicine | DX: I21.4 Non-ST elevation (NSTEMI) myocardial infarction (principal) | CPT/HCPCS: 93798 ==

== ENCOUNTER 2025-09-08 08:59 | Outpatient (RCR) | payer OTHER, SELFPAY | END 2025-10-08 23:59 | disposition home or self-care (01) | LOC: CR 08:59 | PROVIDERS: PCP Family Medicine; Referring Provider Internal Medicine; Visit Provider Family Medicine | DX: I21.4 Non-ST elevation (NSTEMI) myocardial infarction (principal) | CPT/HCPCS: 93798 ==

== ENCOUNTER 2025-09-12 17:48 | Observation (INO) | payer OTHER, SELFPAY ==
[2025-09-12 17:49] VITALS: BP 157/89; PULSE 82; RESP 18; TEMP 36.7; O2SAT 96; BMI 33.7
--- NOTE | 2025-09-12 17:56 | CTR_ITS ---
PROCEDURE INFORMATION: Exam: CT Head Without Contrast Exam date and time: 09/12/2025 6:00 PM Age: 64 years old Clinical indication: Stroke-like symptoms; Headache and speech disturbance; Additional info: Sudden onset of HOYT with dysphasia, now resolved. History of TIA. Last known well time 1720 hours. TECHNIQUE: Imaging protocol: Computed tomography of the head without contrast. Radiation optimization: All CT scans at this facility use at least one of these dose optimization techniques: automated exposure control; mA and/or kV adjustment per patient size (includes targeted exams where dose is matched to clinical indication); or iterative reconstruction. Other technique: STROKE PROTOCOL was implemented. COMPARISON: MR head wo con* [id number] 08/01/2025 10:16 AM RADIATION DOSE METRICS: Total DLP (mGy-cm): 1136.88 FINDINGS: Brain: No evidence of intra-axial or extra-axial hemorrhage. No mass effect or midline shift. Frias-white differentiation is maintained. Basilar cisterns are patent. Cerebral ventricles: No hydrocephalus. Paranasal sinuses: The visualized paranasal sinuses are well aerated. Mastoid air cells: The visualized mastoids and middle ears are clear. Bones: Calvarium is intact. No evidence of acute fracture. Soft tissues: No gross soft tissue abnormality. CT/CT head thrombolytic [id number] IMPRESSION: 1. No acute intracranial abnormality. ASSESSMENT: ASPECTS ([place] Stroke Program Early CT Score) is 10.
--- NOTE | 2025-09-12 17:56 | ECG_ITS ---
Kinopto Clerk Test Date: 2025-09-12 Pat Name: Dani Coleman Department: Room: Gender: Male Cloak Room Attendant: : 1960 Requested By: Laila Gross Order Number: [id number] Aron MD: Doc Nicole M.D. Measurements Intervals [place] Rate: 82 P: 48 ID: [id number] QRS: -9 QRSD: 85 T: -89 QT: 366 QTc: 429 Interpretive Statements SINUS RHYTHM ST-T changes in the inferolateral leads suggestive of recent VT Compared to ECG 07/07/2025 12:23:50 No significant changes Electronically Signed On 09-12-2025 18:43:33 LIAISON OFFICER by Doc Nicole M.D. [email or web address]
--- NOTE | 2025-09-12 18:09 | W.ED.NEUROSD ---
HPI - Neuro Symptoms/Deficit General: Chief Complaint: Neuro Symptoms/Deficit Stated Complaint: stroke like symptoms Time Seen by Provider: 09/12/25 17:54 History of Present Illness: 64-year-old male patient with a history of recent GA in June, followed by what looks like a TIA on 07/31. He ended up getting TNKase at that time. Inpatient MRI scan was later negative for stroke. At that time, he had a visual field cut, bilateral paresthesias, and some speech problems. This evening, around 520, he began to have visual changes, and some expressive aphasia according to his . His speech was a bit slurred. His visual field cut seemed to return. On arrival here, his speech is cleared, but his vision is still blurred. He also has some numbness to his right face, and right upper extremity. He complains of a headache. He notes that he took a nitroglycerin at home, and seemed to get a headache following this. Stroke alert was called on the patient's arrival from triage. Of note, the patient states he has been quite tired today. He went to the store earlier in the day and walked quite a bit. He was supposed to have cardiac rehab, but by the time he mated to cardiac rehab this afternoon, he was so worn out he only did a few minutes of bicycle, and did not use the treadmill because he was tired. His symptoms above started after dinner. Related Data Home Medications ?Medication ?Instructions ?Recorded ?Confirmed aspirin 81 mg tablet,delayed 81 mg PO DAILY 06/16/25 09/08/25 release (Adult Aspirin Regimen) cholecalciferol (vitamin D3) 125 125 mcg PO DAILY 06/16/25 09/08/25 mcg (5,000 unit) tablet (Vitamin D3) diphenhydramine HCl 50 mg tablet 50 mg PO Q6H PRN sleep 06/16/25 09/08/25 (Benadryl Allergy) fexofenadine 180 mg tablet 180 mg PO DAILY 06/16/25 09/08/25 mecobalamin (vitamin B12) 1,000 1,000 mcg PO DAILY 06/16/25 09/08/25 mcg chewable tablet (B12 Active) Previous Rx's ?Medication ?Instructions ?Recorded blood-glucose meter #1 ea 10/19/23 blood sugar diagnostic (OneTouch #200 strips 10/24/24 Ultra Test strips) fluticasone propionate 50 See Rx Instructions .Route 01/20/25 mcg/actuation nasal .COMPLEX #16 grams spray,suspension nitroglycerin 0.4 mg sublingual 0.4 mg sublingual Q5M PRN chest 06/12/25 tablet pain #20 tabs allopurinol 100 mg tablet 100 mg PO QPM #90 tabs 07/15/25 atorvastatin 80 mg tablet 80 mg PO BEDTIME #90 tabs 07/15/25 Held on 09/08/25. Instructions: diarrhea clopidogrel 75 mg tablet 75 mg PO DAILY #90 tabs 07/15/25 glimepiride 4 mg tablet 4 mg PO BID #180 tabs 07/15/25 lisinopril 20 mg tablet 20 mg PO DAILY #90 tabs 07/15/25 metformin 1,000 mg tablet 1,000 mg PO BID #180 tabs 07/15/25 metoprolol succinate 25 mg 25 mg PO DAILY #90 tabs 07/15/25 tablet,extended release 24 hr montelukast 10 mg tablet 10 mg PO DAILY #90 tabs 07/15/25 pantoprazole 20 mg tablet,delayed 20 mg PO DAILY #90 tabs 07/15/25 release pioglitazone 15 mg tablet (Actos) 15 mg PO DAILY #90 tabs 07/15/25 riboflavin (vitamin B2) 400 mg 400 mg PO DAILY opthalmic migraine 07/15/25 tablet #90 tabs Allergies Allergy/AdvReac Type Severity Reaction Status Date / Time tetracycline AdvReac Intermediate GI Verified 09/08/25 14:25 [facility] ED PFS: Medical History Coronary artery disease Bacteriuria with pyuria Hyperlipidemia Hypertension Diabetes mellitus Gout Social History Smoking and tobacco/nicotine status: never used tobacco/nicotine NIH stroke score NIHSS: Level Of Consciousness - 1a: 0 Level Of Consciousness Questions - 1b: Both Correct Level Of Consciousness Commands - 1c: Both Correct Best Gaze - 2: Normal Visual [place] - 3: Partial Hemianopia Facial Palsy - 4: Normal Motor Arm Right - 5: No Drift Motor Arm Left - 5: No Drift Motor Leg Right - 6: No Drift Motor Leg Left - 6: No Drift Limb Ataxia - 7: Absent Sensory - 8: Mild To Moderate Loss Best Language - 9: No Aphasia Dysarthia - 10: Normal Extinction And Inattention - 11: 0 Score: Total Score: 2 Physical Exam Const: COMMON NORMALS: no acute distress GENERAL APPEARANCE: cooperative; not ill appearing and not frail appearing HENMT: COMMON NORMALS: normocephalic, atraumatic and Normal external nose present HEAD & SCALP: normocephalic and atraumatic FACE & SINUS: normal facial exam and face symmetric NOSE: Normal external nose present Eye: COMMON NORMALS: Equal, round and reactive pupils present and EOMs intact bilaterally PUPIL: Yes Equal, round and reactive pupils present Neck/C-Spine: GENERAL: Yes trachea midline Chest: CHEST: Yes Symmetrical chest wall rise Resp: COMMON NORMALS: normal respiratory effort, No retractions, No use of accessory muscles and clear to auscultation bilaterally AUSCULTATION: clear to auscultation bilaterally Cardio: COMMON NORMALS: regular rate and regular rhythm RATE: regular rate RHYTHM: regular rhythm GI: COMMON NORMALS: Normal to inspection, nondistended, normoactive bowel sounds present Extremity: COMMON NORMALS: no pedal edema Neuro: MINISTERIO COMA SCALE: document GCS findings [place] coma scale eye opening: Spontaneous [place] coma scale verbal response: Orientated Ministerio coma scale motor response: Obey commands Ministerio coma scale total score: 15 SENSORY EXAM: Yes extremities (intact) Psych: COMMON NORMALS: speech normal SPEECH: Yes normal speech Skin: COMMON NORMALS: no rashes or lesions noted GENERAL SKIN EXAM: no rashes or lesions noted Course Vital Signs: Vital signs: Vital Signs Temperature 98.1 F 09/12/25 17:49 Pulse Rate 77 09/12/25 19:48 Respiratory Rate 16 09/12/25 19:48 Blood Pressure 140/83 09/12/25 19:48 Pulse Oximetry 95 09/12/25 19:48 Oxygen Delivery Me thod Room Air 09/12/25 19:48 MDM - Neuro Symptoms/Deficit Medical Decision Making On my examination, he has an NIH scale of 2. Neurology was consulted. She evaluated the patient in the ER as well. By the time her examination was complete, his symptoms had improved significantly. He is not a TNKase candidate at this point. On my reexamination, after Toradol and Reglan for his headache, he is watching videos on his phone. His visual defect is resolved. No other symptoms. He is extremely concerned given his repetitive history of neurologic problems, and having had to have gotten thrombolysis in the recent past. Because of this, we will observe the patient. He will go to the floor, diagnosis TIA. Blood pressure is 140/83, heart rate 80, saturation is 96% on room air. Respirations are normal. CBC is normal. BMP is not remarkable. Urinalysis and urine drug screen are negative. CT of the head is no acute. The patient had CTA performed showing patent arteries 2 months ago. He also had an MRI performed at that visit that was clean. Further imaging not felt necessary from an ER standpoint at this time Lab Data 09/12/25 18:15 09/12/25 18:[address] 09/12/25 17:56 IMPRESSION: 1. No acute intracranial abnormality. ASSESSMENT: ASPECTS ([place] Stroke Program Early CT Score) is 10. ADDENDUM: 09/12/251817 The findings were verbally communicated by telephone with Dr. Hartman at 6:16 PM [employer] on 09/12/2025. Laboratory Results WBC 7.08 10^3/uL (3.29-11.43) 09/12/25 18:15 RBC 5.17 10^6/uL (3.85-5.65) 09/12/25 18:15 Hgb 14.80 g/dL (11.27-16.99) 09/12/25 18:15 Hct 43.8 % (37-53) 09/12/25 18:15 MCV 84.7 fl (82-101) 09/12/25 18:15 MCH 28.6 pg (27-33) 09/12/25 18:15 MCHC 33.8 g/dL (30-55) 09/12/25 18:15 RDW 14.2 % (12.1-15.1) 09/12/25 18:15 Plt Count 289 10^3/cmm (157-399) 09/12/25 18:15 MPV 9.2 fL (7.4-10.4) 09/12/25 18:15 Neut % (Auto) 64.8 % 09/12/25 18:15 Lymph % (Auto) 22.6 % 09/12/25 18:15 [place] % (Auto) 10.3 % 09/12/25 18:15 Eos % (Auto) 1.8 % 09/12/25 18:15 Baso % (Auto) 0.4 % 09/12/25 18:15 Neut # (Auto) 4.58 10^3/uL (1.8-7.7) 09/12/25 18:15 Lymph # (Auto) 1.6 10^3/uL (0.8-4.8) 09/12/25 18:15 [place] # (Auto) 0.7 10^3/uL (0.2-0.9) 09/12/25 18:15 Eos # (Auto) 0.1 10^3/uL (0.0-0.8) 09/12/25 18:15 Baso # (Auto) 0.0 10^3/uL (0.0-0.1) 09/12/25 18:15 Nucleated RBC % (auto) 0 % 09/12/25 18:15 Nucleated RBCs # 0.0 /100WBC 09/12/25 18:15 PT 13.60 SECONDS (12.1-14.9) 09/12/25 18:15 INR 0.97 (0.8-1.2) 09/12/25 18:15 APTT 26.5 SECONDS (23.9-36.7) 09/12/25 18:15 Sodium 140 mmol/L (136-145) 09/12/25 18:15 Potassium 4.0 mmol/L (3.5-5.1) 09/12/25 18:15 Chloride 103 mmol/L (98-107) 09/12/25 18:15 Carbon Dioxide 23 mmol/L (22-29) 09/12/25 18:15 Anion Gap 18.0 (5-19) 09/12/25 18:15 BUN 13 mg/dL (8-23) 09/12/25 18:15 Creatinine 0.8 mg/dL (0.7-1.2) 09/12/25 18:15 GFR Calculation 98.0 mL/min (90-130) 09/12/25 18:15 Glucose 181 mg/dL (65-115) H 09/12/25 18:15 POC Glucose 159 mg/dL (70-110) H 09/12/25 18:06 Calculated Osmolality 295 mOsm/kg (285-295) 09/12/25 18:15 Calcium 9.1 mg/dL (8.5-10.5) 09/12/25 18:15 Total Bilirubin 0.4 mg/dL (0.15-1.2) 09/12/25 18:15 AST 21 U/L (0-40) 09/12/25 18:15 ALT 25 U/L (0-41) 09/12/25 18:15 Alkaline Phosphatase 87 U/L (40-130) 09/12/25 18:15 Total Protein 7.5 g/dL (6.6-8.7) 09/12/25 18:15 Albumin 3.9 g/dL (3.5-5.2) 09/12/25 18:15 Globulin 3.6 g/dL (1.3-4.6) 09/12/25 18:15 Urine Color Yellow (Yellow) 09/12/25 18:58 Urine Appearance Clear (CLEAR) 09/12/25 18:58 Urine pH 6.0 (5-7) 09/12/25 18:58 Ur Specific [place] 1.004 (1.005-1.030) L 09/12/25 18:58 Urine Protein Negative (Negative) 09/12/25 18:58 Urine Glucose (UA) Negative (Normal) 09/12/25 18:58 Urine Ketones Negative (Negative) 09/12/25 18:58 Urine Blood Negative (Negative) 09/12/25 18:58 Urine Nitrate Negative (Negative) 09/12/25 18:58 Urine Bilirubin Negative (Negative) 09/12/25 18:58 Urine Urobilinogen 0.2 mg/dL (Negative) 09/12/25 18:58 Ur Leukocyte Esterase Negative (Negative) 09/12/25 18:58 Urine RBC 0-2 /hpf (0-2) 09/12/25 18:58 Urine WBC 0-5 /hpf (0-5) 09/12/25 18:58 Ur Squamous Epith Cells 0-5 /hpf (0-5) 09/12/25 18:58 Amorphous Sediment Not Reportable 09/12/25 18:58 Urine Bacteria None seen /hpf (NONE) 09/12/25 18:58 Hyaline Casts 0-4 /lpf H 09/12/25 18:58 Urine Opiates Screen Negative ng/mL (Negative) 09/12/25 18:58 Ur Barbiturates Screen Negative ng/mL (Negative) 09/12/25 18:58 Ur Phencyclidine Scrn Negative ng/mL (Negative) 09/12/25 18:58 Ur Amphetamines Screen Negative ng/mL (Negative) 09/12/25 18:58 U Benzodiazepines Scrn Negative ng/mL (Negative) 09/12/25 18:58 Urine Cocaine Screen Negative ng/mL (Negative) 09/12/25 18:58 U Marijuana (THC) Screen Negative ng/mL (Negative) 09/12/25 18:58 All radiology interpretation(s) finalized by discharge Discharge Plan Discharge Patient Disposition: Placed in Observation Clinical Impression: Transient cerebral ischemia Coding Level of Care Code ED Pay Station Collector for Alonzo Espinal
[2025-09-12 18:26] LABS: Hematocrit 43.8 % (37-53); Hemoglobin 14.80 g/dL (11.27-16.99); Mean Corpuscular HGB Conc 33.8 g/dL (30-55); Mean Corpuscular Hemoglobin 28.6 pg (27-33); Mean Corpuscular Volume 84.7 fl (82-101); Nucleated Red Blood Cells % 0 %; Platelet Count 289 10^3/cmm (157-399); Red Blood Count 5.17 10^6/uL (3.85-5.65); White Blood Count 7.08 10^3/uL (3.29-11.43)
[2025-09-12 18:36] LABS: INR 0.97 (0.8-1.2); Prothrombin Time 13.60 SECONDS (12.1-14.9)
[2025-09-12 18:37] LABS: Partial Thromboplastin Time 26.5 SECONDS (23.9-36.7)
[2025-09-12 18:46] LABS: Alanine Aminotransferase 25 U/L (0-41); Albumin Level 3.9 g/dL (3.5-5.2); Alkaline Phosphatase 87 U/L (40-130); Anion Gap 18.0 (5-19); Aspartate Amino Transferase 21 U/L (0-40); Blood Urea Nitrogen 13 mg/dL (8-23); Calcium 9.1 mg/dL (8.5-10.5); Carbon Dioxide 23 mmol/L (22-29); Chloride 103 mmol/L (98-107); Globulin 3.6 g/dL (1.3-4.6); Glucose 181 mg/dL (65-115); Osmolality Calculated 295 mOsm/kg (285-295); Potassium 4.0 mmol/L (3.5-5.1); Sodium 140 mmol/L (136-145); Total Protein 7.5 g/dL (6.6-8.7)
--- NOTE | 2025-09-12 18:49 | PM.SAN ---
Stroke Alert Activation ED Arrival Date: 09/12/25 ED Arrival Time: 17:49 ED Physican at Bedside: 17:54 Last Known Normal/at Baseline: < 1 hour ago Other Last Known Well Infomation: He and his ate dinner and he did not feel very well on the way home. Then after he got home he suddenly developed gibberish speech and he could not see well to the right. He took a nitroglycerin and developed a headache. By the time he arrived here he was having a little bit of slurred speech but not gibberish and he had no focal findings although he felt like he could not see to the right. Stroke alert was called and I came directly to the emergency department and talked with Dr. Hartman and examined the patient. At this time he does not have any focal findings. He still has a slightly hesitating speech pattern but he is able to repeat, follow three-step commands. I do have concerns about his memory as I performed a Mini-Mental status exam and he did not do well. Stroke Alert Activated by: Triage Stroke Alert Activation Time: 17:57 Stroke MD @ Bedside Time: 18:10 NIH Stroke Scale Time: 18:20 NIH stroke score NIHSS: Level Of Consciousness - 1a: 0 Level Of Consciousness Questions - 1b: Both Correct Level Of Consciousness Commands - 1c: Both Correct Best Gaze - 2: Normal Visual Townsend - 3: No Visual Loss Facial Palsy - 4: Normal Motor Arm Right - 5: No Drift Motor Arm Left - 5: No Drift Motor Leg Right - 6: No Drift Motor Leg Left - 6: No Drift Limb Ataxia - 7: Absent Sensory - 8: Normal Best Language - 9: No Aphasia Dysarthia - 10: Normal Extinction And Inattention - 11: 0 Score: Total Score: 0 Stroke Alert Data/Treatment Time to CT of Head: 17:57 CT Results Time: 18:15 CT Impression: Normal Stroke Risk Factors: coronary artery disease and diabetes mellitus tPA Contraindication: tPA Contraindication: Treatment not indcated tPA Admin Prior to Arrival: No Patient & Family Educated on: Risk Factors and Treament Plan Other Information: He has been having a lot of different symptoms since all of his cardiac and neurologic problems began. I reviewed his cardiology notes and the patient has complained of numbness off and on since he had staged PCI of the right coronary artery on 07/07/2025. He has also been having diarrhea and although stopping his statin several days ago seem to improve his symptoms he started having diarrhea again today. He is diabetic and that study was normal. His first episode of right sided visual dysfunction was 06/15/2025 and at that time he was diagnosed with 3 vessel coronary disease and had proximal and mid circumflex stents. At that time he was also having atypical chest pain. It was only a few more days until he was back in the ER with a feeling like his legs were numb but no cause was found and he was sent back home. He had further cardiac procedures with angiogram by Dr. Santana and was discharged 07/08. He returned here 07/31 and I saw him for somewhat atypical symptoms and that he he had numbness in both arms, was confused and had a right visual field cut. His field cut was transient enough that it was only briefly evident but it was thought to be a left middle cerebral artery event. As mentioned above, his MRI was negative. I took time to study the patient's memory briefly. He has slightly hesitating speech pattern. He was able to remember 0 of 3 objects after distraction but his attention span was poor and he did not record the 3 objects initially until I repeated them several times. Then he forgot them. He could not perform serial sevens past 93 and he could not spell the word world backward. He appears anxious. He acknowledges that his memory is not normal for him. This will be a further evaluation. Critical Care Time Critical Care Time: 30 - 74 mins A&P Assessment and plan 1. TIA (transient ischemic attack): Transient neurologic dysfunction with right visual field and speech difficulty in a patient who was recently treated with TNK for similar symptoms. I do not find any enduring deficit today and he does not meet criteria to receive thrombolytic therapy today. It is comforting to know that only a month ago his MRI was normal after previous event of this type and that he is CT angiogram on 07/31/2025 insistent with atherosclerotic disease but no stenosis of the carotid or vertebral circulation. Recommend continuing Plavix with aspirin. He is currently holding statin treatment for diarrhea and will need to follow through with Dr. Farrar to discuss diagnosis and appropriate treatment but he will probably have to continue to hold. He may be a little dry and it might be worth hydrating him this afternoon and I am hoping he can return home tonight from the ER. I do not think there is any further diagnostic evaluation that needs to be done at this time. A 30-day monitor can be scheduled when I see him in my office in a week as he is already scheduled. I am concerned about his memory. PDMP PDMP Reviewed: Not Reviewed Coding Level of Care Code Acute Code for Chg Fwd Diagnoses TIA (transient ischemic attack) G45.9
[2025-09-12 18:55] VITALS: BP 159/97; PULSE 82; O2SAT 96
[2025-09-12 19:13] LABS: Glucose Urine UA Negative (Normal); Nitrate Urine Negative (Negative); Specific Gravity, Urine 1.004 (1.005-1.030)
[2025-09-12 19:18] LABS: Add Urine Microscopic? YES
[2025-09-12 19:20] LABS: PCP Screen Urine Negative (Negative)
[2025-09-12] MEDS: metoclopramide 5 mg/mL SDV 2 mL 10 MG IVP (19:46)
[2025-09-12 19:48] VITALS: BP 140/83; PULSE 77; RESP 16; O2SAT 95
[2025-09-12 22:00] VITALS: BP 159/90; PULSE 77; RESP 16; O2SAT 98
--- NOTE | 2025-09-12 22:18 | PM.HP ---
Providers/Chief Complaint Admitting Physician: Jl Kingston MD Primary Care Provider: Timoteo Farrar MD Chief Complaint: stroke like symptoms History of Present Illness Dani Coleman is a 64 year old male with history significant for AR in June of this year, stroke-like symptoms in July at which time TNK was administered, HTN, DM, and HLD, who presents with complaints of stroke-like symptoms. He mentions he was last known well until about 5:30pm when his symptoms began. He says he was otherwise rather tired today after doing cardiac rehab. He mentions he experienced right visual field deficits, right upper extremity and right facial weakness along with aphasia/ During my encounter, he has no such complaints. He is having some anxiety about going home. Medications/Allergies Home Medications ?Medication ?Instructions ?Recorded ?Confirmed ?Last Taken ?Type blood-glucose meter #1 ea 10/19/23 09/08/25 07/06/25 21:00 Rx blood sugar diagnostic (OneTouch #200 strips 10/24/24 09/08/25 07/06/25 21:00 Rx Ultra Test strips) fluticasone propionate 50 See Rx Instructions .Route 01/20/25 09/08/25 Unknown Rx mcg/actuation nasal .COMPLEX #16 grams spray,suspension nitroglycerin 0.4 mg sublingual 0.4 mg sublingual Q5M PRN chest 06/12/25 09/08/25 Unknown Rx tablet pain #20 tabs aspirin 81 mg tablet,delayed 81 mg PO DAILY 06/16/25 09/08/25 07/07/25 05:00 History release (Adult Aspirin Regimen) cholecalciferol (vitamin D3) 125 125 mcg PO DAILY 06/16/25 09/08/25 07/06/25 21:00 History mcg (5,000 unit) tablet (Vitamin D3) diphenhydramine HCl 50 mg tablet 50 mg PO Q6H PRN sleep 06/16/25 09/08/25 07/06/25 21:00 History (Benadryl Allergy) fexofenadine 180 mg tablet 180 mg PO DAILY 06/16/25 09/08/25 07/06/25 21:00 History mecobalamin (vitamin B12) 1,000 1,000 mcg PO DAILY 06/16/25 09/08/25 07/06/25 21:00 History mcg chewable tablet (B12 Active) allopurinol 100 mg tablet 100 mg PO QPM #90 tabs 07/15/25 09/08/25 Unknown Rx atorvastatin 80 mg tablet 80 mg PO BEDTIME #90 tabs 07/15/25 09/08/25 Unknown Rx Held on 09/08/25. Instructions: diarrhea clopidogrel 75 mg tablet 75 mg PO DAILY #90 tabs 07/15/25 09/08/25 Unknown Rx glimepiride 4 mg tablet 4 mg PO BID #180 tabs 07/15/25 09/08/25 Unknown Rx lisinopril 20 mg tablet 20 mg PO DAILY #90 tabs 07/15/25 09/08/25 Unknown Rx metformin 1,000 mg tablet 1,000 mg PO BID #180 tabs 07/15/25 09/08/25 Unknown Rx metoprolol succinate 25 mg 25 mg PO DAILY #90 tabs 07/15/25 09/08/25 Unknown Rx tablet,extended release 24 hr montelukast 10 mg tablet 10 mg PO DAILY #90 tabs 07/15/25 09/08/25 Unknown Rx pantoprazole 20 mg tablet,delayed 20 mg PO DAILY #90 tabs 07/15/25 09/08/25 Unknown Rx release pioglitazone 15 mg tablet (Actos) 15 mg PO DAILY #90 tabs 07/15/25 09/08/25 Unknown Rx riboflavin (vitamin B2) 400 mg 400 mg PO DAILY opthalmic migraine 07/15/25 09/08/25 Unknown Rx tablet #90 tabs Allergies Allergy/AdvReac Type Severity Reaction Status Date / Time tetracycline AdvReac Intermediate GI Verified 09/08/25 14:25 PFSH Acute PFSH: Medical History (Updated 09/12/25 @ 21:42 by Devang Hartman DO) Coronary artery disease Bacteriuria with pyuria Hyperlipidemia Hypertension Diabetes mellitus Gout Social History Smoking and tobacco/nicotine status: never used tobacco/nicotine Vitals/I&O/Wt Last Vital Signs Temp 98.1 F 09/12/25 17:49 Pulse 77 09/12/25 22:00 Resp 16 09/12/25 22:00 BP 159/90 09/12/25 22:00 Pulse Ox 98 09/12/25 22:00 O2 Del Method Room Air 09/12/25 19:48 09/12/25 09/12/25 09/12/25 06:59 14:59 22:59 Intake Total 1000 / 1000 Balance 1000 / 1000 Weight last 48 hrs Weight 113.035 kg Physical Exam Narrative: General: Alert however orientation lying comfortably on the bed without any distress HEENT: Normocephalic, atraumatic, grossly unremarkable exam Cardio: normal rate rhythm, normal S1-S2 without any murmurs, rubs, or gallops and JVD normal Respiratory: normal vascular breathing on auscultation without any wheezes, stridor, rhonchi GI: Abdomen soft, nontender, nondistended, normoactive bowel sounds present all 4 quadrants, Neuro: Gross motor/sensory/cranial nerves with coordination exam unremarkable Behavior: Appropriate and cooperative Data 09/12/25 18:15 09/12/25 18:15 A&P Assessment and plan 1. Transient cerebral ischemia: - Neurology has seen the patient. Does not feel any further diagnostic evaluation is needed at this time - Can watch overnight with telemetry monitoring otherwise - Continue ASA and Plavix 2. Diabetes mellitus: - SSI while hospitalized and hold home oral diabetic meds 3. Hypertension: - Continue home medications 4. Coronary artery disease: - Continue home medications PDMP PDMP Reviewed: Not Reviewed Attestations Medical Necessity Statement*: Patient will need less than two midnights in hospital for observation from his TIA Coding Level of Care Code Acute Code for g Fwd Diagnoses Transient cerebral ischemia G45.9 Diabetes mellitus E11.9 Hypertension I10 Coronary artery disease I25.10
[2025-09-12 22:55] VITALS: BP 156/76; PULSE 76; RESP 18; TEMP 36.7; O2SAT 94; BMI 32.3
[2025-09-13] VITALS: BP 145/81; PULSE 76; RESP 18; TEMP 36.8; O2SAT 94
[2025-09-13 04:00] VITALS: BP 170/95; PULSE 75; RESP 18; TEMP 36.4; O2SAT 92
[2025-09-13] MEDS: metoprolol succinate ER (24 HR) 25 mg Tablet PO (04:58)
[2025-09-13 06:00] VITALS: BMI 32.3
[2025-09-13 07:39] VITALS: BP 148/75; PULSE 74; RESP 18; TEMP 36.6; O2SAT 95
--- NOTE | 2025-09-13 10:08 | P.DS_ITS ---
Discharge Providers Date of Admission: 09/12/25 21:28 Date of Discharge: September 13, 2025 Attending Provider at Admission: Jl Kingston MD Attending Provider at Discharge: Caesar Angel MD Primary Care Provider: Timoteo Farrar MD Diagnoses at Discharge Discharge Diagnosis 1. Transient cerebral ischemia: 2. Diabetes mellitus with stage 2 chronic kidney disease, without long-term current use of insulin: 3. Essential (primary) hypertension: 4. Coronary artery disease: Reason for Visit Reason for Visit: stroke like symptoms Brief History: Patient presented to the ER with apparent gibberish speaking. He was thought to have a TIA, and therefore admitted for close observation and monitoring. Neurologist was consulted, who will monitored him closely. Otherwise, no intervention was made. Hospital Course Hospital Course As at this morning, patient had returned back to his baseline; all his symptoms resolved. Based on recommendations of the neurologist, he was advised to continue his antiplatelets, aspirin and Plavix. Importance of controlling other chronic medical problems, like the diabetes, essential hypertension, hyperlipidemia, etc., was emphasized. See my discharge orders and instructions for more details. Physical Exam Narrative: General: Awake and alert patient. Neuro: Cranial nerves II to XII grossly intact. No obvious focal deficits. No cerebellar signs. Resp: No obvious respiratory distress or difficulty breathing. Skin: No obvious rashes or new skin lesions. All other physical findings essentially within normal limits. Discharge Data Studies Completed and Pending Completed Studies During Hospitalization Category Date Time Status CT head thrombolytic 09504 Stat Cat Scan 09/12/25 17:56 Completed Radiology Impressions Head CT 09/12/25 17:56 IMPRESSION: 1. No acute intracranial abnormality. Laboratory Results WBC 7.08 10^3/uL (3.29-11.43) 09/12/25 18:15 RBC 5.17 10^6/uL (3.85-5.65) 09/12/25 18:15 Hgb 14.80 g/dL (11.27-16.99) 09/12/25 18:15 Hct 43.8 % (37-53) 09/12/25 18:15 MCV 84.7 fl (82-101) 09/12/25 18:15 MCH 28.6 pg (27-33) 09/12/25 18:15 MCHC 33.8 g/dL (30-55) 09/12/25 18:15 RDW 14.2 % (12.1-15.1) 09/12/25 18:15 Plt Count 289 10^3/cmm (157-399) 09/12/25 18:15 MPV 9.2 fL (7.4-10.4) 09/12/25 18:15 Neut % (Auto) 64.8 % 09/12/25 18:15 Lymph % (Auto) 22.6 % 09/12/25 18:15 Mclennan % (Auto) 10.3 % 09/12/25 18:15 Eos % (Auto) 1.8 % 09/12/25 18:15 Baso % (Auto) 0.4 % 09/12/25 18:15 Neut # (Auto) 4.58 10^3/uL (1.8-7.7) 09/12/25 18:15 Lymph # (Auto) 1.6 10^3/uL (0.8-4.8) 09/12/25 18:15 Mclennan # (Auto) 0.7 10^3/uL (0.2-0.9) 09/12/25 18:15 Eos # (Auto) 0.1 10^3/uL (0.0-0.8) 09/12/25 18:15 Baso # (Auto) 0.0 10^3/uL (0.0-0.1) 09/12/25 18:15 Nucleated RBC % (auto) 0 % 09/12/25 18:15 Nucleated RBCs # 0.0 /100WBC 09/12/25 18:15 PT 13.60 SECONDS (12.1-14.9) 09/12/25 18:15 INR 0.97 (0.8-1.2) 09/12/25 18:15 APTT 26.5 SECONDS (23.9-36.7) 09/12/25 18:15 Sodium 140 mmol/L (136-145) 09/12/25 18:15 Potassium 4.0 mmol/L (3.5-5.1) 09/12/25 18:15 Chloride 103 mmol/L (98-107) 09/12/25 18:15 Carbon Dioxide 23 mmol/L (22-29) 09/12/25 18:15 Anion Gap 18.0 (5-19) 09/12/25 18:15 BUN 13 mg/dL (8-23) 09/12/25 18:15 Creatinine 0.8 mg/dL (0.7-1.2) 09/12/25 18:15 GFR Calculation 98.0 mL/min (90-130) 09/12/25 18:15 Glucose 181 mg/dL (65-115) H 09/12/25 18:15 POC Glucose 104 mg/dL (70-110) 09/13/25 06:13 Calculated Osmolality 295 mOsm/kg (285-295) 09/12/25 18:15 Calcium 9.1 mg/dL (8.5-10.5) 09/12/25 18:15 Total Bilirubin 0.4 mg/dL (0.15-1.2) 09/12/25 18:15 AST 21 U/L (0-40) 09/12/25 18:15 ALT 25 U/L (0-41) 09/12/25 18:15 Alkaline Phosphatase 87 U/L (40-130) 09/12/25 18:15 Total Protein 7.5 g/dL (6.6-8.7) 09/12/25 18:15 Albumin 3.9 g/dL (3.5-5.2) 09/12/25 18:15 Globulin 3.6 g/dL (1.3-4.6) 09/12/25 18:15 Urine Color Yellow (Yellow) 09/12/25 18:58 Urine Appearance Clear (CLEAR) 09/12/25 18:58 Urine pH 6.0 (5-7) 09/12/25 18:58 Ur Specific [place] 1.004 (1.005-1.030) L 09/12/25 18:58 Urine Protein Negative (Negative) 09/12/25 18:58 Urine Glucose (UA) Negative (Normal) 09/12/25 18:58 Urine Ketones Negative (Negative) 09/12/25 18:58 Urine Blood Negative (Negative) 09/12/25 18:58 Urine Nitrate Negative (Negative) 09/12/25 18:58 Urine Bilirubin Negative (Negative) 09/12/25 18:58 Urine Urobilinogen 0.2 mg/dL (Negative) 09/12/25 18:58 Ur Leukocyte Esterase Negative (Negative) 09/12/25 18:58 Urine RBC 0-2 /hpf (0-2) 09/12/25 18:58 Urine WBC 0-5 /hpf (0-5) 09/12/25 18:58 Ur Squamous Epith Cells 0-5 /hpf (0-5) 09/12/25 18:58 Amorphous Sediment Not Reportable 09/12/25 18:58 Urine Bacteria None seen /hpf (NONE) 09/12/25 18:58 Hyaline Casts 0-4 /lpf H 09/12/25 18:58 Urine Opiates Screen Negative ng/mL (Negative) 09/12/25 18:58 Ur Barbiturates Screen Negative ng/mL (Negative) 09/12/25 18:58 Ur Phencyclidine Scrn Negative ng/mL (Negative) 09/12/25 18:58 Ur Amphetamines Screen Negative ng/mL (Negative) 09/12/25 18:58 U Benzodiazepines Scrn Negative ng/mL (Negative) 09/12/25 18:58 Urine Cocaine Screen Negative ng/mL (Negative) 09/12/25 18:58 U Marijuana (THC) Screen Negative ng/mL (Negative) 09/12/25 18:58 Vitals Last Vital Signs Temp 97.9 F 09/13/25 07:39 Pulse 74 09/13/25 07:39 Resp 18 09/13/25 07:39 BP 148/75 09/13/25 07:39 Pulse Ox 95 09/13/25 07:39 O2 Del Method Room Air 09/13/25 07:39 Discharge Plan Discharge Patient Disposition: Home Condition: Stable Prescriptions: Continued (DME) blood-glucose meter Misc See Rx Instructions .MEDSUPPLY Qty: 1 0RF Rx Instructions: Use as directed for checking blood sugar nitroglycerin 0.4 mg tablet, sublingual 0.4 mg sublingual Q5M PRN (Reason: chest pain) Qty: 20 11RF Rx Instructions: do not exceed 3 doses per episode allopurinol 100 mg tablet 100 mg PO QPM Qty: 90 3RF atorvastatin 80 mg tablet 80 mg PO BEDTIME Qty: 90 11RF clopidogrel 75 mg tablet 75 mg PO DAILY Qty: 90 11RF glimepiride 4 mg tablet 4 mg PO BID Qty: 180 3RF lisinopril 20 mg tablet 20 mg PO DAILY Qty: 90 3RF metformin 1,000 mg tablet 1,000 mg PO BID Qty: 180 3RF metoprolol succinate 25 mg tablet extended release 24 hr 25 mg PO DAILY Qty: 90 11RF pantoprazole 20 mg tablet,delayed release (DR/EC) 20 mg PO DAILY Qty: 90 3RF pioglitazone [Actos] 15 mg tablet 15 mg PO DAILY Qty: 90 11RF riboflavin (vitamin B2) 400 mg tablet 400 mg PO DAILY Qty: 90 11RF Rx Instructions: to prevent migraines montelukast 10 mg tablet 10 mg PO DAILY Qty: 90 3RF (DME) OneTouch Ultra Test Strip See Rx Instructions .ROUTE .COMPLEX Qty: 200 12RF Dose Instruction: USE DIRECTED with glucometer TO check blood sugar Rx Instructions: USE DIRECTED with glucometer TO check blood sugar fluticasone propionate 50 mcg/actuation spray,suspension See Rx Instructions .ROUTE .COMPLEX Qty: 16 11RF Dose Instruction: USE 2 SPRAYS IN EACH NOSTRIL EVERY DAY NEEDED FOR sinus mass FOR 12 MONTHS Rx Instructions: USE 2 SPRAYS IN EACH NOSTRIL EVERY DAY NEEDED FOR sinus mass FOR 12 MONTHS acetaminophen [Tylenol Extra Strength] 500 mg Tablet 500 mg PO Q6H PRN (Reason: Fever Or Pain) diphenhydramine-acetaminophen [Tylenol PM Extra Strength] 25-500 mg Tablet 1 tab PO Q6H PRN (Reason: sleep ) Benadryl Allergy 50 mg Tablet 50 mg PO Q6H PRN (Reason: sleep ) fexofenadine 180 mg Tablet 180 mg PO DAILY cholecalciferol (vitamin D3) [Vitamin D3] 125 mcg (5,000 unit) Tablet 125 mcg PO DAILY mecobalamin (vitamin B12) [B12 Active] 1,000 mcg Tablet,Chewable 1,000 mcg PO DAILY aspirin [Adult Aspirin Regimen] 81 mg tablet,delayed release (DR/EC) 81 mg PO 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 If you have not heard from them within the next 2 business days, please call them directly. Timoteo Farrar MD [Primary Care Provider, Family Practice] Referral Note: We have notified your physician's clinic of the need for a follow-up appointment to be scheduled. If you have not heard from them within the next 2 business days, please call them directly. Discharge Diet: Usual diet Discharge Activity: Resume usual activity and Increase activity as tolerated Patient Instructions: Transient Ischemic Attack (DC), Opioid Safety, Patient Portal & Ashley Instructions Discharge Attestations Time Spent in Discharge Care*: less than 30 min Status at Discharge: Cognitive status at discharge: cognitively intact , Behavioral status at discharge: cooperative , Quality Metrics Clinical Quality Measures [ No reported AMI, CVA or VTE this stay] Coding Level of Care Code Acute Code for Chg Fwd Diagnoses Transient cerebral ischemia G45.9 Diabetes mellitus with stage 2 chronic kidney disease, without long-term current use of insulin E11.22; N18.2 Essential (primary) hypertension I10 Coronary artery disease I25.10
[2025-09-13 11:36] VITALS: BP 151/83; PULSE 72; RESP 18; TEMP 36.5; O2SAT 93
--- NOTE | 2025-09-13 12:06 | PC.CHAP ---
Pastoral Care Encounter/Spiritual Assessment Type of Contact [] Declined aids social worker visit [] Patient/Family/Request visit [] Outpatient visit [] Follow-up visit [] Physician referral [] Code/Alert [x] Routine visit [] Staff referral [] Actively dying [] Patient sleeping [] Family support [] [] Out of room [] Palliative care [] [] Receiving care in room [] Pre-surgical visit [] Trauma [] Long length of stay [] ICU visit [] Other: Relational/Emotional Strength [x] Patient feels connected with others/family/visitors/staff [x] Distress [] Loneliness/isolation [] Abandonment Spirituality of Patient [x] Person of [place] [] Attends Protestant of their [place] [x] Believes in Prayer [] Reads Bible or Baptism materials [] There are Spiritual issues to be addressed 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[employer] Interventions [x] Prayer [x] Active listening [x] Non-anxious presence [] Spiritual/emotional support [] Crisis/trauma care [] Spiritual counseling [] Bereavement support [] Provided bereavement packet [] Provided Bible/devotional materials [] Provided toy/stuffed animal, coloring book to patient or family member [] Provided Communion [] Anointing/[place] [] Salvation [] Completed spiritual assessment [] Other: Impact on Illness or Injury [] Angry [] Fearful [x] Anxious [] Often cries [] Exhaustion [] Unable to work [] Unable to attend judaism [] Unable to walk/stand [] Unable to read [] Unable to drive [] Unable to eat/drink [] Unable to sleep [] Unable to be with family [] Patient intubated [] Other: Summary Prayer Time spent with patient 20 min
[2025-09-13 12:22] VITALS: BP 151/83; PULSE 72; RESP 18; TEMP 36.5; O2SAT 93
== END 2025-09-13 12:22 | disposition home or self-care (01) ==
LOC: ER 21:42 → MEDSURG 21:55
PROVIDERS: Emergency Medicine; Admitting Provider Family Medicine; Emergency Provider Emergency Medicine; PCP Family Medicine; Visit Provider Family Medicine
DX: G45.9 Transient cerebral ischemic attack, unspecified (principal); I25.10 Atherosclerotic heart disease of native coronary artery without angina pectoris; E11.22 Type 2 diabetes mellitus with diabetic chronic kidney disease; I12.9 Hypertensive chronic kidney disease with stage 1 through stage 4 chronic kidney disease, or unspecified chronic kidney disease; N18.2 Chronic kidney disease, stage 2 (mild); Z79.82 Long term (current) use of aspirin; K21.9 Gastro-esophageal reflux disease without esophagitis; Z79.02 Long term (current) use of antithrombotics/antiplatelets; Z79.84 Long term (current) use of oral hypoglycemic drugs; I25.2 Old myocardial infarction; E78.5 Hyperlipidemia, unspecified
CPT/HCPCS: 36416; 70450; 80053; 80306; 81001; 82962; 85025; 85610; 85730; 93005; 96361; 96374; 96375; 99285; G0378; J1885; J2765; J7030; J9999

== ENCOUNTER → 2025-09-22 15:11 | Outpatient (BNVA) | payer OTHER, SELFPAY | PROVIDERS: PCP Family Medicine; Referring Provider Student in an Organized Health Care Education/Training Program; Visit Provider Specialist | DX: R41.3 Other amnesia (principal) | CPT/HCPCS: 36415; 82233; 82234; 82542; 82607; 82746; 83520 ==

== ENCOUNTER → 2025-09-30 14:27 | Outpatient (BNVA) | payer OTHER, SELFPAY | PROVIDERS: PCP Family Medicine; Visit Provider Internal Medicine Endocrinology, Diabetes & Metabolism | DX: E11.65 Type 2 diabetes mellitus with hyperglycemia (principal) | CPT/HCPCS: 36415; 83036 ==